=== PATIENT | female | born 1965 | race Caucasian/White ===

== ENCOUNTER 2022-08-28 15:52 | Outpatient (RCR) | payer BC, SELFPAY | END 2022-09-19 09:03 | disposition home or self-care (01) | PROVIDERS: PCP Family Medicine; Visit Provider Orthopaedic Surgery | DX: M17.11 Unilateral primary osteoarthritis, right knee (principal); Z96.651 Presence of right artificial knee joint; Z51.89 Encounter for other specified aftercare | CPT/HCPCS: 97110; 97162 ==

== ENCOUNTER 2022-09-14 10:17 | Day surgery (SDC) | payer BC, SELFPAY ==
[2022-09-14] VITALS (20 sets, daily range): BP systolic 104–159; BP diastolic 70–95; PULSE 59–99; RESP 12–18; TEMP 35.7–36.8; O2SAT 95–100; BMI 39.2
[2022-09-14] MEDS: ACETAMINOPHEN 500 MG TABLET 1000 MG PO ×2 (10:30→18:28)
[2022-09-14] MEDS: CELECOXIB 200 MG CAPSULE PO (10:30)
[2022-09-14] MEDS: OXYCODONE (CR) 10 MG TAB.ER.12H PO (10:30)
[2022-09-14] MEDS: SODIUM CHLORIDE 0.9 % (FLUSH) 10 ML SYRINGE IVF (10:45)
[2022-09-14] MEDS: LACTATED RINGERS 1000 ML 1,000 ML 100 ML IV ×2 (10:45→16:14)
--- NOTE | 2022-09-14 12:22 | SUR.PREOP ---
TIME?OUT:?1226 PT/RN/MDA?VERIFICATION?OF?SURGICAL?SITE Right Knee,?PROCEDURE Nerve block,?AND?CONSENT OBTAINED?PRIOR?TO?INVASIVE?PROCEDURE.
[2022-09-14] MEDS: fentaNYL 100 MCG/2 ML inj IVP (12:27)
[2022-09-14] MEDS: MIDAZOLAM HCL 1 MG/ML inj IVP (12:27)
--- NOTE | 2022-09-14 12:45 | P.NB_ITS ---
Nerve Block Nerve Block Time Seen by Provider: 12:29 Date Seen: 09/14/22 Type of block requested by surgeon for post-operative analgesia: adductor canal Side: right Time out performed: Yes Verification of patient name: Yes Verification of date of : Yes Site marking: site marked Name of person performing procedure: Naveen Continuous monitoring Was continuous monitoring of O2 sat, B/P, manager monitoring, recorded every 15 minutes?: Yes Procedure Checklist: sterile prep, needles and gloves Ultrasound guided. Images saved: Yes Medications given in 5ml increments after negative aspiration: Ropivicaine %: 0.5 mL: 20 Needle gauge: 20 Decadron (mg): 10 Precedex (mcg): 25 Patient tolerated procedure well: Yes Additional comments: Needle noted adjacent to nerve Block Charges Block Charge (with Pro Fee): Femoral Nerve Use of Ultrasound Machine for Block: Yes- US Guidance/pain block
--- NOTE | 2022-09-14 12:45 | W.ANESCHARGE ---
Anesthesia Charges Start Date/Time Anesthesia Start Date: 09/14/22 Anesthesia Start Time: 14:05 Stop Date/Time Anesthesia Stop Date: 09/14/22 Anesthesia Stop Time: 16:42
--- NOTE | 2022-09-14 12:45 | W.PM.NB ---
Nerve Block Nerve Block Time Seen by Provider: 12:29 Date Seen: 09/14/22 Type of block requested by surgeon for post-operative analgesia: geniculars Side: right Time out performed: Yes Verification of patient name: Yes Verification of date of : Yes Site marking: site marked Name of person performing procedure: Naveen Continuous monitoring Was continuous monitoring of O2 sat, B/P, sql server architect, recorded every 15 minutes?: Yes Procedure Checklist: sterile prep, needles and gloves Medications given in 5ml increments after negative aspiration: Ropivicaine %: 0.5 mL: 9 Needle gauge: 25 Patient tolerated procedure well: Yes Block Charges Block Charge (with Pro Fee): Genicular Nerve Block Use of Ultrasound Machine for Block: No
[2022-09-14] MEDS: CEFAZOLIN 2 GM INJ IVP (14:05)
[2022-09-14] MEDS: TRANEXAMIC ACID 100 MG/ML INJ 1000 MG IV (14:08)
--- NOTE | 2022-09-14 15:51 | CRLHL7_ITS ---
For Patients: As a result of the Cures Act, medical imaging exams and procedure reports are released immediately into your electronic medical record. You may view this report before your referring provider. If you have questions, please contact your health care provider. Indication: Postop TKA Technique: Two views right knee Findings/Impression: Hardware from a right total knee arthroplasty is in satisfactory position. Bone alignment is normal. No sign of acute fracture. Postop changes are within normal limits. Dictated by Ramos Sears MD @ 09/15/2022 8:01:40 AM (Electronically Signed)
--- NOTE | 2022-09-14 15:58 | P.ORPRC_ITS ---
Procedure Note Date of procedure: 09/14/22 Procedure: PREOPERATIVE DIAGNOSIS: Right knee osteoarthritis POSTOPERATIVE DIAGNOSIS: Right knee osteoarthritis NAME OF OPERATION: Right total knee arthroplasty SURGEON: Teodoro Green MD HEARING OFFICER: Susy Hernandez PA-C ANESTHESIA: Spinal ESTIMATED BLOOD LOSS: 0 mL COMPLICATIONS: None SPECIMENS: Bone cuts were sent for gross and microscopic pathology DRAINS: None PREOPERATIVE ANTIBIOTICS: Ancef 3 grams IMPLANTS: 1. J&J Attune # 5 posterior stabilized femur 2. # 5 fixed-bearing tibia with a 14 mm x 50 mm stem 3. # 5 posterior stabilized, 5 mm fixed-bearing polyethylene 4. 38 patella INDICATIONS: The patient is a 56-year-old with a longstanding history of severe, unrelenting right knee pain secondary to end-stage (grade IV) right knee osteoarthritis. Despite appropriate nonoperative management, including activity modification, anti-inflammatories, [id number] pain medication, bracing, physical therapy, and injections they continue to have pain and disability. Operative intervention was offered. The risks, benefits and expected outcomes were discussed in detail. These included but were not limited to: Infection, bleeding, injury to blood vessel or nerve, venous thromboembolism. All questions were answered to their sati sfaction. Use of an publisher assistant was necessary throughout the case for patient positioning and safety, soft tissue retraction, and closure. PROCEDURE: Spinal anesthesia was administered. The patient was placed supine on the operating table. The publisher assistant made sure the patient was positioned appropriately. The lower extremity was prepped and draped in the usual sterile fashion. The limb was exsanguinated with the Luis bandage. The pneumatic tourniquet was inflated to 300 mmHg. A standard anterior incision was made with the knee in flexion. Subcutaneous dissection was sharply taken through fascial layer #1. Full-thickness medial and lateral flaps were elevated. The publisher assistant retracted the soft tissues and protected them throughout the case. A standard medial parapatellar approach was made. The patella was everted. The infrapatellar fat pad was preserved. The menisci and cruciate ligaments were sharply d?brided. Marginal osteophytes were d?brided with the rongeur. Immediately upon entering the joint we noted the color of the subchondral bone was darkened brown. This was most pronounced on the distal femur, less so on the tibia and the patella. Therefore, bone cuts w ere sent for gross and microscopic pathology. The drill was used to penetrate the femoral canal. The canal was aspirated and irrigated with pulse lavage. The intramedullary femoral guide was placed for a 5-degree valgus cut, removing 10 mm off the distal femur. The saw was used to make the cut. Whitesides line and the trans epicondylar axis were marked. The femoral sizing guide was pinned onto the distal femur. Three degrees of external rotation nicely parallels the transepicondylar axis. Pins were placed for posterior referencing. The four-in-one cutting guide was pinned onto the distal femur. The anterior, posterior, and chamfer cuts were made. The publisher assistant protected the collateral ligaments. The box cutting guide was pinned. The box cuts were made. The boxed trial was placed and was an excellent fit. Drill holes for the lugs were made. Attention was then turned to the proximal tibia. The extramedullary tibial guide was placed for a neutral varus/valgus cut with 5 degrees of posterior slope, removing 2 mm based off the medial tibial surface. The publisher assistant protected the collateral ligaments and the neurovascular bundle. The saw was used to make the cut. Given the patient's weight of 124 kg with a BMI of 39.2 kg/meter sq we elected to use a stem on the tibial side. The tray was placed in appropriate rotation, parallel to our tibial cutting pins. It was pinned by the publisher assistant and the drills were used. The Trial components were placed. The knee was nicely balanced in both flexion and extension. The trial components were removed. The tray was placed in an appropriate amount of rotation. The punch was used, the tray was removed. The punch was used again. We placed a bone plug in the femoral canal. Attention was then turned to the patella. Rincon patellar thickness was 20 mm. The lobster claw resection guide was used with the 7.5 mm сергей. The saw was used to make the cut. Drill holes were made by the publisher assistant. The trial was placed and was an excellent fit. Cancellous surfaces were irrigated with pulse lavage and thoroughly dried by the publisher assistant. We cemented the tibial component, then the femoral component. We impacted the 5 mm polyethylene onto the tibial tray. The knee was brought into full extension. We then cemented the patellar component. Excessive cement was removed. The cement was allowed to harden. The knee was taken through a range of motion and was found to be nicely balanced in both flexion and extension. The patella tracks centrally. The publisher assistant did a three minute dilute Betadine solution soak. The publisher assistant irrigated the wound with 3 liters of normal saline via pulse lavage. The publisher assistant reapproximated the extensor mechanism with #1 Vicryl in an interrupted [id number] fashion. The publisher assistant then ran the extensor mechanism with a #1 PDO Stratafix. The publisher assistant closed the subcutaneous tissues with a 3-0 Stratafix and the skin with a running 3-0 Stratafix in a subcuticular fashion. Glue was used to seal the skin. The publisher assistant placed a dry dressing, ROBBIE stocking, and Polar Care. Sponge and needle counts were correct x2. The patient tolerated the procedure well. There were no apparent complications. They were carefully transferred to the hospital bed and taken to the postanesthesia care unit in satisfactory condition. PLAN: The patient will be mobilized with physical therapy. Aspirin will be used for DVT prophylaxis. They will be discharged to home once medically appropriate. She will follow up in the office in a week for a wound check and to check her final pathology.
--- NOTE | 2022-09-14 16:45 | W.ANESCHARGE ---
Anesthesia Charges Start Date/Time Anesthesia Start Date: 09/14/22 Anesthesia Start Time: 14:05 Stop Date/Time Anesthesia Stop Date: 09/14/22 Anesthesia Stop Time: 16:42
--- NOTE | 2022-09-14 17:26 | P.IMCN_ITS ---
Date of Consult Patient: Kerry Patient Consult date: 09/14/22 Primary Care Provider: Moon Lyon MD Consult Narrative Reason for consult: Medical management of comorbidities Narrative: Latrice Thomas is a 56 year old female who presented to the hospital today for an elective R TKA with Dr. Green. There were no surgical or anesthetic complications noted during procedure. Patient's H&P reviewed, PCP is Dr. Lyon in [place]. Past medical history significant for: Choroidal melanoma of left eye, anxiety, insomnia, GERD, hyperlipidemia, hypothyroidism History of blood clots: No Postoperative plan: Home with Patient did has been taught have no concerns for hospitalist team. She would like to take a few of her own home medications, as they are non formulary. Review of Systems Status of ROS: Reports: 10 or more systems reviewed and unremarkable except as noted in History and below [facility] Medical History (Updated 09/14/22 @ 18:31 by Janay James MD) Anxiety ?F41.9 - Anxiety disorder, unspecified (ICD-10) Choroid melanoma of left eye ?C69.32 - Malignant neoplasm of left choroid (ICD-10) Depression ?F32.A - Depression, unspecified (ICD-10) Elevated cholesterol ?E78.00 - Pure hypercholesterolemia, unspecified (ICD-10) GERD (gastroesophageal reflux disease) ?K21.9 - Gastro-esophageal reflux disease without esophagitis (ICD-10) Hypothyroid ?E03.9 - Hypothyroidism, unspecified (ICD-10) Insomnia ?G47.00 - Insomnia, unspecified (ICD-10) Surgical History (Updated 09/14/22 @ 18:31 by Janay James MD) History of cholecystectomy (~2007) ?Z90.49 - Acquired absence of other specified parts of digestive tract (ICD- 10) History of eye removal (10/03/21) ?Z90.01 - Acquired absence of eye (ICD-10) History of hysterectomy (~2011) ?Z90.710 - Acquired absence of both cervix and uterus (ICD-10) History of knee replacement ?Z96.659 - Presence of unspecified artificial knee joint (ICD-10) Hx of appendectomy (1998) ?Z90.49 - Acquired absence of other specified parts of digestive tract (ICD- 10) Family History (Updated 09/05/22 @ 14:33 by Mylene Stewart RN) Mother Myocardial infarction Father FH: kidney cancer Brother Hyperlipidemia FHx: total knee replacement Social History (Updated 09/14/22 @ 18:31 by Janay James MD) Narrative: Lives with Everett in [place]. Not currently working outside the home. Nonsmoker, no concerning alcohol use. Smoking Status: Never smoker Do you use any of these nicotine containing products: None Second hand tobacco smoke exposure: No How often do you have a drink containing alcohol: never AUDIT-C Alcohol total score: 0 Non-prescribed substance use: denies use Caffeine: No Are you now , , , , never or living with a partner: Social isolation score (0-1 are the most socially isolated patients): 1 Meds Home Medications and Allergies Home Medications Medication Instructions Recorded Confirmed Type B-complex with vitamin C 1 cap PO QDAY 02/13/22 09/14/22 History baclofen 10,000 mcg/20 mL (500 10 mcg continuous intrathecal 02/13/22 08/09/22 History mcg/mL) intrathecal syringe infusion bupropion HCl 100 mg tablet,12 hr mg PO 02/13/22 08/09/22 History sustained-release cyclobenzaprine 10 mg tablet 10 mg PO .Bedtime as needed PRN 02/13/22 09/14/22 History esomeprazole magnesium 20 mg 20 mg PO DAILY 02/13/22 09/14/22 History capsule,delayed release multivitamin 1 tab PO QDAY 02/13/22 09/14/22 History zinc gluconate 100 mg tablet 100 mg PO 02/13/22 08/09/22 History zolpidem 6.25 mg tablet,extended mg PO 02/13/22 08/09/22 History release,multiphase citalopram 20 mg tablet 20 mg PO QDAY 03/22/22 09/14/22 History levothyroxine 200 mcg tablet 200 mcg PO QDAY 03/22/22 09/14/22 History (Synthroid) propranolol 60 mg capsule,24 60 mg PO QDAY 05/15/22 09/14/22 History hr,extended release cholecalciferol (vitamin D3) 10 10 mcg PO QDAY 07/28/22 09/14/22 History mcg (400 unit) capsule esomeprazole magnesium 40 mg 40 mg PO QDAY 07/28/22 09/14/22 History capsule,delayed release (Nexium) ezetimibe 10 mg tablet (Zetia) 10 mg PO QDAY 07/28/22 09/14/22 History simvastatin 40 mg tablet 40 mg PO QDAY 07/28/22 09/14/22 History zolpidem 6.25 mg tablet,extended 6.25 mg PO QHS 07/28/22 09/14/22 History release,multiphase (Ambien CR) Allergies Allergy/AdvReac Type Severity Reaction Status Date / Time propoxyphene Allergy Verified 09/14/22 10:26 [From Darvocet-N] Sulfa (Sulfonamide Allergy Verified 09/14/22 10:26 Antibiotics) Exam Narrative: Exam Narrative: GEN: Alert HEENT: No scleral icterus, oropharynx clear CV: RRR, No concerning murmurs, rubs, or gallops R: LCTA bilaterally without concerning wheezing, rales, or rhonchi Skin: No concerning skin lesions or rashes on exposed skin Neuro: Nonfocal Psych: Appropriate Const: Vital Signs, click to edit/add: Vital Signs - 24 hr 09/14/22 10:35 09/14/22 12:25 09/14/22 12:30 Temperature 97.8 F Pulse Rate 78 74 69 Respiratory Rate 18 18 18 Blood Pressure 152/89 H 159/91 H 151/88 H Pulse Oximetry 99 100 100 Oxygen Delivery Me thod Room Air Nasal Cannula Nasal Cannula Oxygen Flow Rate 2 2 09/14/22 16:40 09/14/22 16:45 09/14/22 16:50 Temperature 96.2 F L Pulse Rate 62 65 67 Respiratory Rate 12 12 12 Blood Pressure 110/70 107/73 104/75 Pulse Oximetry 97 97 97 Oxygen Delivery Me thod Room Air Room Air Room Air Oxygen Flow Rate 09/14/22 16:55 09/14/22 17:00 09/14/22 17:05 Temperature Pulse Rate 69 65 72 Respiratory Rate 12 12 12 Blood Pressure 113/79 119/76 129/79 Pulse Oximetry 97 98 98 Oxygen Delivery Me thod Room Air Room Air Room Air Oxygen Flow Rate 09/14/22 17:10 Temperature 97 F L Pulse Rate 65 Respiratory Rate 12 Blood Pressure 132/80 Pulse Oximetry 100 Oxygen Delivery Me thod Room Air Oxygen Flow Rate Assessment and Plan Assessment and plan (1) History of knee replacement: Problem comment: - Randy, Dr. Green, 09/14/22 Status: Acute Plan - pain management and prophylaxis per orthopedic surgery team - continue home medications for comorbidities as noted above - anticipate routine postoperative course
[2022-09-14] MEDS: HYDROmorphone 0.5 mg/0.5 ml inj IVP ×2 (17:51→20:54)
[2022-09-14] MEDS: OXYCODONE 5 MG TABLET PO ×2 (19:24→22:33)
[2022-09-14] MEDS: CEFAZOLIN 3 GM in 0.9 % SODIUM CHLORIDE 100 ml 100 ML IVPB (19:30)
[2022-09-14] MEDS: SENNOSIDES 1 TAB TABLET 2 TAB PO (20:35)
[2022-09-14] MEDS: SIMVASTATIN 40 MG TABLET PO (20:35)
[2022-09-14] MEDS: ASPIRIN 81 MG TABLET EC PO (20:36)
[2022-09-14] MEDS: buPROPion HCL 100 MG TAB.SR.12H PO (20:38)
[2022-09-14] MEDS: ONDANSETRON 2 MG/ML inj 4 MG IVP (20:53)
[2022-09-14] MEDS: OMEPRAZOLE 20 MG CAPSULE DR 40 MG PO (21:26)
[2022-09-14] MEDS: ZOLPIDEM 5 MG TABLET PO (22:17)
[2022-09-14] MEDS: CITALOPRAM HYDROBROMIDE 20 MG TABLET PO (22:17)
--- NOTE | 2022-09-14 23:09 | PC.NURSE ---
Shift [id number]- Patient states comfort at rest, but has increased pain and accompanying nausea with attempts to ambulate. Bedside commode used, PRN pain medication, anti-nausea administered with relief. She is eating, drinking and voiding without issue. Dressing is clean, dry and intact. Patient has brought in 3 home medications.
[2022-09-14] MEDS: LACTATED RINGERS 1000 ML 1,000 ML 75 ML IV (23:50)
[2022-09-15] MEDS: ACETAMINOPHEN 500 MG TABLET 1000 MG PO ×2 (00:55→06:12)
[2022-09-15 03:30] VITALS: BP 131/72; RESP 20; TEMP 36; O2SAT 98
[2022-09-15] MEDS: CEFAZOLIN 3 GM in 0.9 % SODIUM CHLORIDE 100 ml 100 ML IVPB (03:36)
[2022-09-15] MEDS: OXYCODONE 5 MG TABLET PO ×2 (03:36→08:56)
[2022-09-15] MEDS: LEVOTHYROXINE 100 MCG TABLET 200 MCG PO (06:13)
[2022-09-15 06:44] LABS: Hematocrit 38.8 % (33.0-51.0); Hemoglobin* 13.1 gm/dL (12.0-16.0); Immature Granulocytes Pct Auto 0.3 %; Lymphocytes Percent Auto 6.8 % (20-44); Mean Corpuscular HGB Conc 34 gm/dL (32-36); Mean Corpuscular Hemoglobin 31 pg (26-34); Mean Corpuscular Volume 90 fL (80-100); Monocytes Percent Auto 6.7 % (0.0-11.0); Neutrophils Percent Auto 86.2 % (42.0-72.0); Platelet Count* 291 K/uL (140-440); White Blood Count* 13.38 K/uL (4.50-11.00)
[2022-09-15 06:50] LABS: Slide Review Reflex No
[2022-09-15 07:00] VITALS: O2SAT 98
[2022-09-15 07:11] LABS: Potassium* 3.8 mmol/L (3.6-5.1); Sodium* 135 mmol/L (135-149)
[2022-09-15 07:14] LABS: Blood Urea Nitrogen* 14 mg/dL (7-30); Creatinine* 0.6 mg/dL (0.5-1.5); Est. Creatinine Clearance* 110.52; Estimated Glomerular Filt Rate 104 ml/min
[2022-09-15 07:17] LABS: INR 0.94 (0.91-1.10); Prothrombin Time 13.2 Seconds
[2022-09-15 07:30] VITALS: BP 125/68; PULSE 69; RESP 18; TEMP 36.4; O2SAT 98
--- NOTE | 2022-09-15 07:34 | PC.NURSE ---
END OF SHIFT NOTE: PT PLEASANT AND COOPERATIVE. A&O x4. DENIES CP, SOB, N/V. AMBULATES SLOWLY WITH WALKER, GB, A1. VSS ON RA; AFEBRILE. ADEQUATELY ORAL INTAKE; LEFT HAND IV SL. BED ALARM ON AND CALL LIGHT WITHIN PT?S REACH.?
--- NOTE | 2022-09-15 08:04 | PM.ORPN ---
Subjective Subjective Time Seen by Provider: 07:30 Date Seen: 09/15/22 Principal diagnosis: S/p day 1 right TKA Interval history: Latrice is doing well this morning and is resting comfortably in bed. Patient complains of diffuse, mild right knee pain worse with ambulation. Pain is well managed with current scheduled and PRN oral pain medications and ice. Admits to intermittent nausea. Denies: fever, chills, body aches, chest pain, SOB. Patient reports she had a loose bowel movement last night. Patient feels ready to be discharged to home later this afternoon. No acute events over night. Ortho Exam Narrative Exam Narrative: Incision/Dressing: Dressing appears clean and dry. No drainage present. Mepilex intact. Right knee appears moderately swollen but supple with no obvious erythema, fluctuance or excessive warmth. No ecchymosis or erythematous streaking. Warmth around the wound is appropriate. Ice is being utilized as needed. CMS: Intact distally with 2+ Dorsalis pedis and Posterior Tibial pulses. 5/5 motor strength dorsal and plantar flexion. Confirmed sensation distally. Intact straight leg raise. Calf: Bilateral calves are supple, with no swelling, pain, tenderness, erythema, discoloration or coolness to the touch. Constitutional: Patient is alert and oriented x3. Patient is in no acute distress and converses without labored breathing. Patient is able to make decisions and demonstrates good insight. Patient is pleasant and cooperative. Affect is full range and appropriate for the circumstances. Const Vital Signs, click to edit/add: Vital Signs - 24 hr 09/14/22 10:35 09/14/22 12:25 09/14/22 12:30 Temperature 97.8 F Pulse Rate 78 74 69 Pulse Rate [Pulse Oximeter] Respiratory Rate 18 18 18 Blood Pressure 152/89 H 159/91 H 151/88 H Blood Pressure [Right Arm] Pulse Oximetry 99 100 100 Oxygen Delivery Method Room Air Nasal Cannula Nasal Cannula Oxygen Flow Rate 2 2 09/14/22 16:40 09/14/22 16:45 09/14/22 16:50 Temperature 96.2 F L Pulse Rate 62 65 67 Pulse Rate [Pulse Oximeter] Respiratory Rate 12 12 12 Blood Pressure 110/70 107/73 104/75 Blood Pressure [Right Arm] Pulse Oximetry 97 97 97 Oxygen Delivery Method Room Air Room Air Room Air Oxygen Flow Rate 09/14/22 16:55 09/14/22 17:00 09/14/22 17:05 Temperature Pulse Rate 69 65 72 Pulse Rate [Pulse Oximeter] Respiratory Rate 12 12 12 Blood Pressure 113/79 119/76 129/79 Blood Pressure [Right Arm] Pulse Oximetry 97 98 98 Oxygen Delivery Method Room Air Room Air Room Air Oxygen Flow Rate 09/14/22 17:10 09/14/22 17:30 09/14/22 17:15 Temperature 97 F L 97.3 F L 97.3 F L Pulse Rate 65 59 L Pulse Rate [Pulse Oximeter] 59 L Respiratory Rate 12 18 18 Blood Pressure 132/80 Blood Pressure [Right Arm] 143/95 H 143/95 H Pulse Oximetry 100 95 Oxygen Delivery Method Room Air Room Air Room Air Oxygen Flow Rate 09/14/22 17:30 09/14/22 17:45 09/14/22 18:00 Temperature Pulse Rate Pulse Rate [Pulse Oximeter] 63 63 60 Respiratory Rate 18 18 18 Blood Pressure Blood Pressure [Right Arm] 129/86 126/80 135/85 Pulse Oximetry 99 100 100 Oxygen Delivery Method Room Air Room Air Room Air Oxygen Flow Rate 09/14/22 18:30 09/14/22 19:00 09/14/22 20:00 Temperature 97.2 F L Pulse Rate Pulse Rate [Pulse Oximeter] 68 69 69 Respiratory Rate 18 18 18 Blood Pressure Blood Pressure [Right Arm] 139/88 142/80 H 130/73 Pulse Oximetry 97 100 100 Oxygen Delivery Method Room Air Room Air Room Air Oxygen Flow Rate 09/14/22 21:00 09/14/22 22:00 09/14/22 23:00 Temperature 97.7 F Pulse Rate Pulse Rate [Pulse Oximeter] 72 64 Respiratory Rate 18 18 Blood Pressure Blood Pressure [Right Arm] 139/89 116/70 Pulse Oximetry 100 99 99 Oxygen Delivery Method Room Air Room Air Oxygen Flow Rate 09/14/22 23:00 09/14/22 23:00 09/15/22 03:30 Temperature 98.2 F 96.8 F L Pulse Rate Pulse Rate [Pulse Oximeter] 67 99 Respiratory Rate 18 18 20 Blood Pressure Blood Pressure [Right Arm] 137/86 131/72 Pulse Oximetry 99 98 Oxygen Delivery Method Room Air Room Air Oxygen Flow Rate Assessment and Plan Assessment and plan (1) History of knee replacement: Problem details: - R, Dr. Green, 09/14/22 Status: Acute Assessment and Plan: - Complete 23 hour perioperative antibiotics. - PT/OT consults for education and assistance. - Social consult for discharge planning. - Weight bear as tolerated. - DVT prophylaxis includes: aspirin 81 mg BID x 1 month. Also bilateral knee high Paco stockings (x 1 month), frequent ambulation and ankle pumps when sedentary. - Anticipate patient will be discharged to home this afternoon if the patient remains medically stable, pain is controlled and is safe with ambulation. - Return to clinic in 1 week for a wound check. Mepilex dressing will be removed at this appointment. Remove sooner if dressing becomes saturated. - Return to clinic in [address] Green. - Prescribed analgesics as needed. Patient is content with current narcotic medications. Minimize narcotic pain medication use; wean off and discontinue as soon as possible. - Phone Orthopedics with any questions or concerns.
[2022-09-15] MEDS: OMEPRAZOLE 20 MG CAPSULE DR 40 MG PO (08:55)
[2022-09-15] MEDS: SENNOSIDES 1 TAB TABLET 2 TAB PO (08:56)
[2022-09-15] MEDS: ASPIRIN 81 MG TABLET EC PO (08:56)
--- NOTE | 2022-09-15 09:26 | PC.SOCIAL ---
Met with pt and pt's in pt's room to discuss discharge plans. Pt states her home is prepped for her recovery and she has her to assist her during her recovery period. Pt has a walker and a cane at home. No identified needs for social work. Informed pt that if she has any questions she may reach out to social work.
[2022-09-15 10:00] VITALS: BP 132/80; PULSE 59; RESP 18; TEMP 36.4
[2022-09-15] MEDS: EZETIMIBE 10 MG TABLET PO (10:12)
[2022-09-15] MEDS: buPROPion HCL SR 150 MG TAB 300 MG PO (10:22)
--- NOTE | 2022-09-15 12:55 | PC.NURSE ---
D/C: A&O. A1 w/ walker and gait belt. Tolerating regular diet, denies N/V. Reported pain 4-5/10. PRN oxycodone given before therapy. d/c instructions were given verbally and written copy was sent home with patient. All questions answered. IV d/c with tip intact. Went home with at 1145.
== END 2022-09-15 11:45 | disposition home or self-care (01) ==
LOC: OR 10:17 → MEDSURG 10:22
PROVIDERS: PCP Family Medicine; Visit Provider Orthopaedic Surgery
PROC: (CPT 27447; principal; 2022-09-14 12:00)
DX: M17.11 Unilateral primary osteoarthritis, right knee (principal); F41.9 Anxiety disorder, unspecified; K21.9 Gastro-esophageal reflux disease without esophagitis; E78.5 Hyperlipidemia, unspecified; E03.9 Hypothyroidism, unspecified; G47.00 Insomnia, unspecified
CPT/HCPCS: 27447; 01402; 36415; 64447; 64454; 73560; 76942; 82565; 84132; 84295; 84520; 85025; 85610; 88305; 88311; 97110; 97116; 97161; 97165; 97530; 97535; A9270; C1776; J0690; J1100; J1170; J2250; J2405; J2704; J2795; J3010; J7120; S0106

== ENCOUNTER 2023-06-15 07:27 | Outpatient (CLI) | payer BC, SELFPAY | END 2023-06-15 07:28 | disposition home or self-care (01) | LOC: INJ CL 07:27 | PROVIDERS: PCP Family Medicine; Visit Provider Family Medicine | DX: M51.36 Other intervertebral disc degeneration, lumbar region (principal); M54.16 Radiculopathy, lumbar region | CPT/HCPCS: 62323; J0702; Q9966 ==

== ENCOUNTER 2023-08-07 13:54 | Outpatient (CLI) | payer BC, SELFPAY ==
--- OUTSIDE RECORDS SUMMARY | 2023-08-07 13:57 | XMS_ITS | Clinical Summary ---
Author Name Unknown Organization [facility] Address [place], [place] [address] Care Team Providers Care President & Founder Name Role Phone Moon Lyon MD Primary Care Provider Allergies Active Allergy Reactions Criticality Noted Date Comments Propoxyphene-Acetaminophen Nausea Only 05/04/20 06 Pitavastatin Myalgia 07/06/2023 Rosuvastatin Myalgia 07/06/2023 Sulfa (Sulfonamide Antibiotics) Nausea And Vomiting 05/04/2006 Medications Medication Sig Dispensed Refills Start Date End Date Status MULTIVITAMIN ORAL None Entered 0 Activ e vitamin B complex (VITAMINS B COMPLEX) tablet Take 1 tablet by mouth once daily. 0 06/03/20 12 Active Calcium-Magnesium tablet Take 1 tablet by mouth. 0 06/03/20 12 Active omega-3 fatty acids-vitamin E (FISH OIL) 1,000 mg cap Take by mouth. 0 06/03/20 12 Active soy-blk cohosh-green tea-yerba 56-40-130 mg tab Take by mouth once daily. 0 03/12/20 17 Active scopolamine 1mg over 3 days (Transderm-Scop) patchIndications:Motion sickness, subsequent encounter Apply 1 Patch on dry, clean, hairless skin every 72 hours. 4 Patch 07/13/19 22 Active zinc 50 mg tablet Take 1 Tablet (50 mg) by mouth once daily. 0 07/17/19 23 Active cholecalciferol, Vitamin D3, (Vitamin D-3) 5,000 unit tab tabletIndications:Vitam in D deficiency Take 1 Tablet (5,000 units) by mouth once daily. 90 Tablet 3 07/17/19 23 Active buPROPion (WELLBUTRIN SR) 150 mg Sustained-Release tabletIndications:Depre ssion, unspecified depression type 2 tabs in the morning, 1 tab in the evening 270 Tablet 3 08/16/19 23 Active NITROGLYCERIN 0.2 % IN PETROLATUM OINTMENT, [facility] MIXTURE,Indications:Darshan fissure Insert 0.25 g rectally 3 times daily if needed (anal fissure). Apply tid and prn after BM's. Wait for patient to call. 60 g 2 11/11/19 23 Active Nyamyc powderIndications:Mery kristina dermatitis APPLY TO AFFECTED AREA(S) TOPICALLY TWICE DAILY 180 g 3 12/01/19 23 Active baclofen (LIORESAL) 10 mg tabletIndications:Muscl e spasm of back Take 1 Tablet (10 mg) by mouth 2 times daily if needed (muscle pain). 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 180 Capsule 3 12/07/19 23 Active propranolol ER (INDERAL LA) 60 mg Cs24 Sustained-Release capsule Take 1 Capsule by mouth once daily. 0 03/05/20 23 Active levothyroxine (SYNTHROID) 150 mcg tabletIndications:Hypot hyroidism (acquired) Take 1 Tablet (150 mcg) by mouth once daily. 90 Tablet 3 06/29/19 24 Active atorvastatin (LIPITOR) 40 mg tabletIndications:Pure hypercholesterolemia Take 1 Tablet (40 mg) by mouth once daily. 90 Tablet 3 07/06/19 24 Active ezetimibe (ZETIA) 10 mg tabletIndications:CAD in northway artery Take 1 Tablet (10 mg) by mouth once daily. 90 Tablet 3 07/06/19 24 Active citalopram (CELEXA) 20 mg tabletIndications:Anxie ty TAKE 1 TABLET BY MOUTH ONCE DAILY 90 Tablet 3 07/11/19 24 Active zolpidem CR (AMBIEN CR) 6.25 mg Extended-Release tabletIndications:Insom garcia, idiopathic Take 1 Tablet (6.25 mg) by mouth at bedtime if needed for Sleep. 90 Tablet 0 07/23/19 24 Active citalopram (CELEXA) 20 mg tabletIndications:Anxie ty Take 1 Tablet (20 mg) by mouth once daily. 90 Tablet 05/01/20 22 024 Discontinued propranolol ER (INDERAL LA) 60 mg Cs24 Sustained-Release capsuleIndications:At risk for cancer Take 1 Capsule (60 mg) by mouth once daily. 90 Capsule 3 12/16/19 23 024 Discontinued(Du plicate therapy (E-cancel not sent)) zolpidem CR (AMBIEN CR) 6.25 mg Extended-Release tabletIndications:Insom garcia, idiopathic TAKE 1 TABLET(6.25 MG) BY MOUTH AT BEDTIME NEEDED FOR SLEEP 30 Tablet 0 06/21/20 23 024 Discontinued(Re order (E-cancel not sent)) zolpidem CR (AMBIEN CR) 6.25 mg Extended-Release tabletIndications:Insom garcia, idiopathic Take 1 Tablet (6.25 mg) by mouth at bedtime if needed for Sleep. 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 Acquired hypothyroidism 04/01/2018 Insomnia, idiopathic 12/11/2016 Pain in joint, shoulder region 05/06/2007 Mixed hyperlipidemia 05/04/2006 Esophageal reflux 05/04/2006 Major depressive disorder, recurrent episode, un specified 05/04/2006 Gastroesophageal reflux disease without esophagi tis Polyp of colon Resolved Problems Problem Noted Date Diagnosed Date Resolved Date Pain medication agreement 06/16/2013 Overview: Percocet, 6 pills per day, knee pain Plantar fasciitis 05/07/2008 09/01/2022 Encounters Date Type Department Care Team Description 08/03/2023 11:00 AM [facility] Office Visit [facility] [address] [place] [address] Bereket Noyola MD Musculoskeletal Problem (Follow up back pain, DARNELL on 06/15/23) 08/03/2023 Travel 07/20/2023 11:15 AM [facility] Office Visit [facility] [address] [place] [address] Moon Lyon MD Physical 07/20/2023 10:40 AM [facility] - 07/20/2023 11:59 PM [facility] Hospital Encounter [facility] [address] [place] [address] Visit for screening mammogram 07/20/2023 Travel 07/08/[address] [facility] [address] [place] [address] Moon Lyon MD Refill Request (Citalopram) 07/06/2023 11:00 AM [facility] Telemedicine [facility] [address] [place] [address] Ramos Rossi MD Telehealth; Follow Up ( f/u from [facility] Feb 2022, med check) 07/06/2023 Travel 06/29/2023 Travel 06/20/[address] [facility] [address] [place] [address] Moon Lyon MD Refill Request (Zolpidem Cr) 06/15/2023 8:00 AM [facility] Office Visit [facility] at [address] [place] [address] Bereket Noyola MD Procedure (L4-5 ILESI) 06/12/2023 8:45 AM [facility] - 06/12/2023 11:59 PM [facility] Hospital Encounter [facility] [address] [place] [address] Emely Bauman MD Choroidal malignant melanoma, left (HC) 06/12/2023 Travel 06/12/2023 Lab Requisition [facility] [address] [place] [address] Emely Bauman MD 06/11/2023 3:14 PM [facility] - 06/11/2023 11:59 PM [facility] Hospital Encounter [address] [address] Shannan, MD Akosua Tierney Tia, PT 06/11/2023 Travel 06/04/2023 3:12 PM [facility] - 06/04/2023 11:59 PM [facility] Hospital Encounter [address] [address] Shannan, MD Akosua Tierney Tia, PT 06/04/2023 Travel 05/31/2023 11:20 AM [facility] Office Visit [facility] [address] [place] [address] Bereket Noyola MD Consult (Lumbar pain x 2 years ) 05/31/2023 Travel 05/29/2023 3:14 PM [facility] - 05/29/2023 11:59 PM [facility] Hospital Encounter [address] [address] Shannan, MD Neema Tierney Kaylin J, [employer] 05/29/2023 Travel 05/21/2023 3:14 PM [facility] - 05/21/2023 11:59 PM [facility] Hospital Encounter [address] [address] Shannan, MD Neema Tierney Kaylin J, [employer] 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[employer]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 05/21/2023 Travel 05/14/2023 3:14 PM [facility] - 05/14/2023 11:59 PM [facility] Hospital Encounter [address] [address] Jerry Campbell MD Hagy, Tia, PT 05/14/2023 Travel 05/07/2023 3:14 PM [facility] - 05/07/2023 11:59 PM [facility] Hospital Encounter [address] [address] Jerry Campbell MD Hagy, Tia, PT 05/07/2023 Travel from Last 3 Months Immunizations Name Administration Dates Next Due AMB Influenza, IIV3 (Age >=3 years)(Flu Clinic Only) 05/09/2012,05/09/2012 COVID-19 vaccine ([employer] NTBrandShield 30mcg/0.3mL) 12YO+ JUAN-SUCROSE PF, MDV 2021 COVID-19 vaccine ([employer] NTBrandShield 30mcg/0.3mL) PF, MDV 05/09/2021,10/06/2020,09/15/2020 COVID-19 vaccine Comirnaty ([employer]Shield 30mcg/0.3mL) 12YO+ 9840-4823 Formula PF, SDV, PFS 03/16/2023 Influenza, IIV3 (Age 6-35 mos) 6,04/22/2015,03/31/2011,2008 Influenza, IIV3 (Age >=3 years) 03/09/20 21,03/17/2016,04/02/2014,2012,05/09/2012,03/31/2011,03/19/2010,1 ,05/07/2008,05/02/2006 Influenza, IIV4 03/10/2022,,03/24/2020,2018,04/01/2018,03/12/2017,04/23/2015 Influenza, IIV4 (=>6mos) MDV 03/15/2019 Influenza,CCIIV4 PRESERV FREE 03/16/2023 Measles 11/01/1976 Pneumococcal Conj 20-valent (Prevnar 20) 03/10/2022 Td (Age >=7 Years) 03/26/2003 Tdap 07/17/2022,06/03/2012,03/26/2003 Zoster (Shingrix-RZV, recombinant) 07/05/2018, Family History Medical History Relation Name Comments Hyperlipidemia Brother Osteoarthritis Brother Cancer Father Renal cell carc inoma Heart Disease Mother Hyperlipidemia Cancer-breast Paternal Grandmother Relation Name Status Comments Brother Alive Father Mother Paternal Grandmother Social History Tobacco Use Types Packs/Day Years Used Date Smoking Tobacco: Never Smokeless Tobacco: Never Tobacco Cessation:Counseling Given: Yes Alcohol Use Standard Drinks/Week Comments No 0 (1 standard drink = 0.6 oz pur e alcohol) PHQ-2 Answer Date Recorded PHQ-2 TOTAL SCORE 0 07/20/2023 Social Connections Answer Date Recorded Frequency of Communication with Friends and Fami ly 0 03/12/2023 Financial Resource Strain Answer Date R ecorded Difficulty of Paying Living Expenses 3 03/12/2023 Difficulty of Paying Living Expenses Not on file 03/12/2023 Food Insecurity Answer Date Recorded Worried About Running Out of Food in the Last Ye ar 1 03/12/2023 Transportation Needs Answer Date Record ed Lack of Transportation (Medical) 1 03/12/2023 Housing Stability Answer Date Recorded Unable to Pay for Housing in the Last Year 1 03/12/2023 Sex and Gender Information Value Date Recorded Sex Assigned at Not on file Gender Identity Not on file Sexual Orientation Not on file Obstetrics History Para Term AB IAB SAB Ectopic Multiple Livin g Live Births 0 0 0 0 0 0 0 0 0 0 Last Filed Vital Signs Vital Sign Reading Time Taken Comments Blood Pressure 129/83 08/03/2023 11:04 AM [facility] Pulse 69 08/03/2023 11:04 AM [facility] Temperature 36.7 ??C (98.1 ??F) 08/03/2023 11:[address] Respiratory Rate 14 07/06/2023 11:16 AM [facility] Oxygen Saturation 98% 08/03/2023 11:04 AM [facility] Inhaled Oxygen Concentration - - Weight 132 kg (291 lb 1.6 oz) 07/20/2023 11:39 A M [facility] Height 177.8 cm (5' 10) 07/20/2023 11:39 AM [facility] Body Mass Index 41.77 07/20/2023 11:39 AM [facility] Plan of Treatment Upcoming Encounters Date Type Department Care Team (Late st Contact Info) Description 08/07/2023 2:40 PM [facility] Office Visit [facility] [address] [place] [phone] Bereket Noyola MD [address] [place] [address] Arrived 08/24/2023 8:20 AM [facility] Orders [facility] [address] [facility] [place] [address] Lab, Janneth 08/29/2023 1:00 PM [facility] Preop Visit [facility] [address] [facility] [place] [address] Moon Lyon MD [address] [facility] [place] [address] 09/04/2023 8:45 AM CDT Appointment [facility] [address] [facility] [place] [address] 09/04/2023 9:00 AM CDT Appointment [facility] [address] [facility] [place] [address] 09/04/2023 9:30 AM CDT Appointment [facility] [address] [facility] [place] [address] Health Maintenance Due Date Last Done Comments COVID-19 vaccine series (2022- season) 2023 03/16/2023, 05/26/2022, 2021, Additional history exists BMI (ht and wt on same day) for age 18+ 07/20/2024 07/20/2023, 09/01/2022, 07/17/2022, Additional history exists Depression screening for age 12+ 07/20/2024 07/20/2023, 07/17/2022, 07/13/2021, Additional history exists Mammogram for age 45-75 07/20/2024 07/20/19 24, 07/17/2022, 07/13/2021, Additional history exists Colonoscopy through age 75 01/10/202701/10, 01/02/2012 [facility] Lipids for age 45-75 06/29/2028 06/29/2023, 07/14/2022, 07/08/2021, Additional history exists Tetanus booster 07/17/2032 07/17/2022, 05/25, 03/26/2003, Additional history exists Zoster (shingles) series for age 50+ Completed 07/05/2018, 04/01/2018 Hepatitis C screening for ag e 18-79 Completed 06/28/2019 Pneumococcal series for age 6-64 Completed 03/10/20 Tdap Completed 07/17/2022, 05/25, 03/26/2003 HIV for age 15-65 Completed 09/05/2022 Influenza for age 50-64 Completed 03/16/20, 03/10/2022, 03/09/2021, Additional history exists Procedures Procedure Name Priority Date/Time Associated Diagnosis Comments XR MAMMO DARIELA BILAT SCREEN Routine 07/20/2023 10:54 AM [facility] Visit for screening mammogram LIPID PANEL W REFLEX MEASURED LDL Routine 06/29/2023 8:43 AM [facility] Mixed hyperlipidemia BASIC METABOLIC PANEL Routine 06/29/2023 8:43 AM [facility] Mixed hyperlipidemia TSH Routine 06/29/2023 8:43 AM [facility] Hypothyroidism (acquired) AMB EPIDURAL STEROID INJECTION Routine 06/15/2023 9:27 AM [facility] Lumbar radiculopathy DDD (degenerative disc disease), lumbar Lumbar facet arthropathy MR ABDOMEN WWO Routine 06/12/2023 10:43 AM [facility] Choroidal malignant melanoma, left (HC) CT CHEST WO Routine 06/12/2023 9:22 AM [facility] Choroidal malignant melanoma, left (HC) CBC WITH AUTO DIFFERENTIAL Routine 06/12/2023 9:00 AM [facility] Malignant neoplasm of left choroid (HC) COMP METABOLIC PANEL Routine 06/12/2023 9:00 AM [facility] Malignant neoplasm of left choroid (HC) CBC WITH AUTO DIFFERENTIAL Routine 06/12/2023 9:00 AM [facility] Malignant neoplasm of left choroid (HC) from Last 3 Months Results * XR MAMMO DARIELA BILAT SCREEN (07/20/2023 10:54 AM [facility]) Anatomical Region Laterality Modality BREASTS, Breast Left, Breast Right Bilateral Mammography Impressions 07/20/2023 11:30 AM [facility] ??There is no radiographic evidence for malignancy. ??Recommend annual mammograms. MAMMOGRAM ASSESSMENT: ??ACR 1 Negative PATIENTS: You will also receive a letter with your examination results in an easy to read format. ??If you have questions about your results, please contact your referring provider. Narrative 07/20/2023 11:30 AM [facility] For Patients: As a result of the Century Cures Act, medical imaging exams and procedure reports are released immediately into your electronic medical record. You may view this report before your referring provider. If you have questions, please contact your health care provider. XR MAMMO DARIELA BILAT SCREEN [[id number]] CLINICAL HISTORY: ??This is an asymptomatic 57 y.o. patient. INDICATION FOR EXAM: Mammogram Screening. TECHNIQUE: CC & MLO views were obtained. ??This study was evaluated with the assistance of Computer-Aided Detection. Breast Tomosynthesis was used in interpretation. COMPARISON FILM: Yes 07/16/22 ? FINDINGS: ??The breasts are almost entirely fatty. There are no dominant masses, suspicious micro calcifications or areas of architectural distortion. Moon Lyon MD MAMMO * (ABNORMAL) LIPID PANEL W REFLEX MEASURED LDL (06/29/2023 8:43 AM [facility]) CHOLESTEROL,TOTAL 181 100 - 199 mg/dL 06/29/2023 9:34 AM [facility] Comment: Cholesterol, Total Reference Ranges Desirable <200 mg/dL Borderline 200-239 mg/dL High >=240 mg/dL TRIGLYCERIDES 177(H) <150 mg/dL 06/29/2023 9:34 AM [facility] HDL CHOLESTEROL 63 >40 mg/dL 9:34 AM [facility] NON-HDL CHOLESTEROL 118 <145 mg/dl 06/29/2023 9:34 AM [facility] CHOL/HDL RATIO 2.87 <4.50 06/29/2023 9:34 AM [facility] LDL CHOLESTEROL 83 <=130 mg/dL 06/29/2023 9:34 AM [facility] VLDL CHOLESTEROL 35(H) <=30 mg/dL 06/29/2023 9:34 AM [facility] PROVIDER ORDERED STATUS RANDOM 06/29/2023 9:34 AM [facility] Blood BLOOD SPECIMEN / Unknown Venipuncture / Unknown 06/29/2023 8:43 AM [facility] 06/29/2023 8:44 AM [facility] Moon Lyon MD CHEMISTRY Performing Organization Address [facility] de Phone Number [facility] [address] [place] [address] * (ABNORMAL) TSH (06/29/2023 8:43 AM [facility]) TSH 0.08(L) 0.27 - 4.20 uIU/mL 06/29/2023 9:34 AM [facility] Blood BLOOD SPECIMEN / Unknown Venipuncture / Unknown 06/29/2023 8:43 AM [facility] 06/29/2023 8:44 AM [facility] Narrative [facility] - 06/29/2023 9:34 AM [facility] In Adults, TSH values between 5.00 and 10.00 uIU/ml do not necessarily indicate the presence of Hypothyroidism. Correlation with clinical findings such as presence of goiter and/or Thyroperoxidase (TPO) Antibody may be helpful. For more information please refer to TAM 2004; 291: 228-238. Moon Lyon MD CHEMISTRY Performing Organization Address [facility] Co de Phone Number [facility] [address] [place] [address] * (ABNORMAL) BASIC METABOLIC PANEL (06/29/2023 8:43 AM [facility]) SODIUM 139 136 - 145 mmol/L 06/29/2023 9:34 AM [facility] POTASSIUM 4.1 3.5 - 5.1 mmol/L 06/29/2023 9:34 AM [facility] CHLORIDE 105 98 - 107 mmol/L 06/29/2023 9:34 AM [facility] CO2,TOTAL 23 22 - 29 mmol/L 06/29/2023 9:34 AM [facility] ANION GAP 11 5 - 18 06/29/2023 9:34 AM [facility] GLUCOSE 107(H) 70 - 99 mg/dL 06/29/2023 9:34 AM [facility] CALCIUM 9.4 8.6 - 10.0 mg/dL 06/29/2023 9:34 AM [facility] BUN 19 6 - 20 mg/dL 06/29/2023 9:34 AM [facility] CREATININE 0.80 0.50 - 0.90 mg/dL 06/29/2023 9:34 AM [facility] BUN/CREAT RATIO 24(H) 10 - 20 9:34 AM [facility] eGFR 85(L) >90 mL/min/1.7 3m2 06/29/2023 9:34 AM [facility] Comment:As of 2021, eG FR is calculated by the CKD-EPI creatinine equation without race adjustment. ??eGFR can be influenced by muscle mass, exercise, and diet. ??The reported eGFR is an estimation only and is only applicable if the renal function is stable. Blood BLOOD SPECIMEN / Unknown Venipuncture / Unknown 06/29/2023 8:43 AM [facility] 06/29/2023 8:44 AM [facility] Moon Lyon MD CHEMISTRY [facility] [address] [place] [address] * MR ABDOMEN WWO (06/12/2023 10:43 AM [facility]) Anatomical Region Laterality Modality Abdomen, LIVER, PANCREAS, KIDNEYS, AORTA Magnetic Resonance 06/16/2023 2:04 PM [facility] Impressions 06/16/2023 2:04 PM [facility] 1. Stable small single enhancing lesion subcapsular segment II. No change continued surveillance could be obtained. 2. No new suspicious liver lesions. 3. Gallbladder surgery. Dictated by Bang Coto MD @ 06/16/2023 2:04:20 PM (Electronically Signed) Narrative 06/16/2023 2:04 PM [facility] For Patients: ??As a result of the Cures Act, medical imaging exams and procedure reports are released immediately into your electronic medical record. ??You may view this report before your referring provider. ??If you have questions, please contact your health care provider. INDICATION: Melanoma. Liver lesion. TECHNIQUE: Abdominal MRI. T1, T2 weighted and diffusion weighting. Postcontrast fat suppressed T1 weighted imaging. Diffusion-weighted imaging. Contrast: 10 cc intravenous Gadavist. COMPARISON: MRI abdomen 03/13/2023. FINDINGS: Liver: Stable with non cirrhotic morphology. Enhancing lesion in segment II subcapsular and anterior slightly greater than 1 cm with no significant overall change. No new liver lesions. Miscellaneous abdomen: The pancreas spleen adrenal glands and kidneys show no change. No ascites. No suspicious lymph node enlargement. The skeletal structures are unremarkable with no change. Biliary tree: Normal caliber. The gallbladder is absent. Procedure Note Bang Coto MD - 06/16/2023 For Patients: As a result of the Cures Act, medical imagingexams and procedure reports are released immediately into your electronicmedical record. You may view this report before your referring provider.If you have questions, please contact your health care provider. INDICATION: Melanoma. Liver lesion. TECHNIQUE: Abdominal MRI. T1, T2 weighted and diffusion weighting. Postcontrast fat suppressed T1 weighted imaging. Diffusion-weighted imaging. Contrast: 10 cc intravenous Gadavist. COMPARISON: MRI abdomen 03/13/2023. FINDINGS: Liver: Stable with non cirrhotic morphology. Enhancing lesion in segment IIsubcapsular and anterior slightly greater than 1 cm with no significantoverall change. No new liver lesions. Miscellaneous abdomen: The pancreas spleen adrenal glands and kidneys show no change. No ascites. No suspicious lymph node enlargement. The skeletal structures are unremarkable with no change. Biliary tree: Normal caliber. The gallbladder is absent. IMPRESSION: 1. Stable small single enhancing lesion subcapsular segment II. No change continued surveillance could be obtained. 2. No new suspicious liver lesions. 3. Gallbladder surgery. Dictated by Bang Coto MD @ 06/16/2023 2:04:20 PM (Electronically Signed) Bethanieio Burton Levi MD MR * CT CHEST WO (06/12/2023 9:22 AM [facility]) Anatomical Region Laterality Modality CHEST, THORAX, HEART Computed To mography 06/12/2023 9:34 AM [facility] Impressions 06/12/2023 9:34 AM [facility] 1. No change from multiple previous studies. Lung ramsey are clear. No lymphadenopathy or other evidence of metastatic disease. 2. Chronic atherosclerotic disease. 3. Cholecystectomy. Please note that all CT scans at this facility use dose modulation, iterative reconstruction, and/or weight-based dosing when appropriate to reduce radiation dose to as low as reasonably achievable. Dictated by Vinod Peralta MD @ 06/12/2023 9:34:49 AM (Electronically Signed) Narrative 06/12/2023 9:34 AM [facility] For Patients: ??As a result of the Cures Act, medical imaging exams and procedure reports are released immediately into your electronic medical record. ??You may view this report before your referring provider. ??If you have questions, please contact your health care provider. INDICATION: Choroidal malignant melanoma TECHNIQUE: CT chest without contrast. COMPARISON: 03/13/2023, 09/05/2022 and 06/07/2022. FINDINGS: Cardiovascular structures: Heart size is normal. Thoracic aorta and main pulmonary artery are normal in caliber. Redemonstrated atherosclerotic calcification of the coronary arteries. Mediastinum and lis: No sign of mass or adenopathy. Lungs: Clear. No pulmonary nodules, mass or consolidation. The airways are clear. Pleura and pericardium: No effusions. Chest wall and axilla: No mass or adenopathy. Bones: Degenerative spine. Small focal of sclerosis in the body of T10 unchanged. No lytic or new osteoblastic lesions. Upper abdomen: Cholecystectomy. Otherwise unremarkable. Procedure Note Ernst Peralta MD - 06/12/2023 For Patients: As a result of the Cures Act, medical imagingexams and procedure reports are released immediately into your electronicmedical record. You may view this report before your referring provider.If you have questions, please contact your health care provider. INDICATION: Choroidal malignant melanoma TECHNIQUE: CT chest without contrast. COMPARISON: 03/13/2023, 09/05/2022 and 06/07/2022. FINDINGS: Cardiovascular structures: Heart size is normal. Thoracic aorta and mainpulmonary artery are normal in caliber. Redemonstrated atheroscleroticcalcification of the coronary arteries. Mediastinum and lis: No sign of mass or adenopathy. Lungs: Clear. No pulmonary nodules, mass or consolidation. The airways areclear. Pleura and pericardium: No effusions. Chest wall and axilla: No mass or adenopathy. Bones: Degenerative spine. Small focal of sclerosis in the body of [id number]. No lytic or new osteoblastic lesions. Upper abdomen: Cholecystectomy. Otherwise unremarkable. IMPRESSION: 1. No change from multiple previous studies. Lung ramsey are clear. Nolymphadenopathy or other evidence of metastatic disease. 2. Chronic atherosclerotic disease. 3. Cholecystectomy. Please note that all CT scans at this facility use dose modulation,iterative reconstruction, and/or weight-based dosing when appropriate toreduce radiation dose to as low as reasonably achievable. Dictated by Vinod Peralta MD @ 06/12/2023 9:34:49 AM (Electronically Signed) Emely Levi MD CT * CBC WITH AUTO DIFFERENTIAL (06/12/2023 9:00 AM [facility]) WHITE BLOOD COUNT 6.4 4.5 - 11.0 thou/cu mm 06/12/2023 9:45 AM [facility] RED BLOOD COUNT 4.92 4.00 - 5.20 mil/cu mm 06/12/2023 9:45 AM [facility] HEMOGLOBIN 14.9 12.0 - 16.0 g/dL 06/12/2023 9:45 AM [facility] HEMATOCRIT 45.4 33.0 - 51.0 % 06/12/2023 9:45 AM [facility] MCV 92 80 - 100 fL 06/12/2023 9:45 AM [facility] MCH 30.3 26.0 - 34.0 pg 06/12/2023 9:45 AM [facility] MCHC 32.8 32.0 - 36.0 g/dL 06/12/2023 9:45 AM [facility] RDW 13.9 11.5 - 15.5 % 06/12/2023 9:45 AM [facility] PLATELET COUNT 341 140 - 440 thou/cu mm 06/12/2023 9:45 AM [facility] MPV 9.0 6.5 - 11.0 fL 06/12/2023 9:45 AM [facility] % NEUT 54.0 % 06/12/2023 9:45 AM [facility] % LYMPH 34.8 % 06/12/2023 9:45 AM [facility] % MONO 10.1 % 06/12/2023 9:45 AM [facility] % EOS 0.8 % 06/12/2023 9:45 AM [facility] % BASO 0.3 % 06/12/2023 9:45 AM [facility] ABSOLUTE NEUTROPHILS 3.5 1.7 - 7.0 thou/cu mm 06/12/2023 9:45 AM [facility] ABSOLUTE LYMPHOCYTES 2.2 0.9 - 2.9 thou/cu mm 06/12/2023 9:45 AM [facility] ABSOLUTE MONOCYTES 0.7 <0.9 thou/cu mm 06/12/2023 9:45 AM [facility] ABSOLUTE EOSINOPHILS 0.1 <0.5 thou/cu mm 06/12/2023 9:45 AM [facility] ABSOLUTE BASOPHILS 0.0 <0.3 thou/cu mm 06/12/2023 9:45 AM [facility] Blood BLOOD SPECIMEN / Unknown Venipuncture / Unknown 06/12/2023 9:00 AM [facility] 06/12/2023 9:39 AM [facility] Emely Levi MD HEMATOLOGY [facility] [address] [place] [address] * (ABNORMAL) COMP METABOLIC PANEL (06/12/2023 9:00 AM [facility]) SODIUM 141 136 - 145 mmol/L 06/12/2023 10:09 AM [facility] POTASSIUM 4.3 3.5 - 5.1 mmol/L 06/12/2023 10:09 AM [facility] CHLORIDE 105 98 - 107 mmol/L 06/12/2023 10:09 AM [facility] CO2,TOTAL 27 22 - 29 mmol/L 06/12/2023 10:09 AM [facility] ANION GAP 9 5 - 18 06/12/2023 10:09 AM [facility] GLUCOSE 105(H) 70 - 99 mg/dL 06/12/2023 10:09 AM [facility] CALCIUM 9.7 8.6 - 10.0 mg/dL 06/12/2023 10:09 AM [facility] BUN 18 6 - 20 mg/dL 06/12/2023 10:09 AM [facility] CREATININE 0.66 0.50 - 0.90 mg/dL 06/12/2023 10:09 AM [facility] BUN/CREAT RATIO 27(H) 10 - 20 10:09 AM [facility] eGFR >90 >90 mL/min/1.7 3m2 06/12/2023 10:09 AM [facility] Comment:As of 2021, eG FR is calculated by the CKD-EPI creatinine equation without race adjustment. ??eGFR can be influenced by muscle mass, exercise, and diet. ??The reported eGFR is an estimation only and is only applicable if the renal function is stable. ALBUMIN 4.2 4.0 - 4.9 g/dL 06/12/2023 10:09 AM [facility] PROTEIN,TOTAL 7.1 6.0 - 8.0 g/dL 06/12/2023 10:09 AM [facility] BILIRUBIN,TOTAL 0.4 0.0 - 1.2 mg/dL 06/12/2023 10:09 AM [facility] ALK PHOSPHATASE 86 35 - 104 IU/L 06/12/2023 10:09 AM [facility] ALT (SGPT) 22 10 - 35 IU/L 06/12/2023 10:09 AM [facility] AST (SGOT) 19 10 - 35 IU/L 06/12/2023 10:09 AM [facility] Blood BLOOD SPECIMEN / Unknown Venipuncture / Unknown 06/12/2023 9:00 AM [facility] 06/12/2023 9:39 AM [facility] Emely Levi MD CHEMISTRY [facility] [address] [place] [address] from Last 3 Months Advance Directives Latest Code Status on File Code Status Date Activated Date Inactivated Comments Full Code 01/10/2022 7:00 AM 01/10/2022 11:07 AM Question Answer Comments Code Status Discussion: Discussed Code Status History Code Status Date Activated Date Inactivated Comments Full Code 02/15/2017 6:53 AM 02/15/2017 11:38 AM Care Teams President & Founder Relationship Specialty Start Date End Date Moon Lyon MD [address] [facility] [place] [place] [address] PCP - General Family Practice 08/04/15
--- OUTSIDE RECORDS SUMMARY | 2023-08-07 13:58 | XMS_ITS | Encounter Summary ---
Author Name Unknown Organization [facility] Address [address] [place] [address] Care Team Providers Care Electricity Trading Analyst Name Role Phone Molina Warren MD Primary Care Provider [phone] Louise Mustafa RN Unavailable [phone] Radha Clark RN Unavailable [phone] Emely Bauman MD Unavailable [phone] Emely Bauman MD Unavailable [phone] Reason for Referral * Diagnostic Imaging MRI (Routine) - Pending Review Specialty Diagnoses / Procedures Referred By Carrie sherwood Referred To Contact Radiology. Procedures MR Outside Emely Castorena MD [address] [place] [address] Referral ID Status Reason Start Date Expiration Date V isits Requested Visits Authorized [id number] Pending Review 09/07/2022 09/07/2023 1 1 Reason for Visit * Diagnostic Imaging MRI (Routine) - Pending Review Specialty Diagnoses / Procedures Referred By Carrie sherwood Referred To Contact Radiology. Procedures MR Outside Emely Castorena MD [address] [place] [address] Referral ID Status Reason Start Date Expiration Date V isits Requested Visits Authorized [id number] Pending Review 09/07/2022 09/07/2023 1 1 Encounter Details Date Type Department Care Team (Latest Contact Info) Description 09/07/2022 11:29 AM CDT - 09/07/2022 11:59 PM CDT Hospital Encounter [facility] [address] [phone] Emely Bauman MD [address] [place] [address] Discharge Disposition: Home or Self Care Social History Tobacco Use Types Packs/Day Years Used Date Smoking Tobacco: Never Smokeless Tobacco: Never Sex and Gender Information Value Date Recorded Sex Assigned at Female 08/22/2021 11:54 AM SECURITIES TRADER Gender Identity Female 08/22/2021 11:54 AM SECURITIES TRADER Sexual Orientation Straight 08/22/2021 11 :54 AM SECURITIES TRADER documented as of this encounter Medications at Time of Discharge Medication Sig Dispensed Refills Start Date End Date baclofen (LIORESAL) 10 MG tablet Take 10 mg by mouth 0 07/22/2021 buPROPion (WELLBUTRIN SR) 150 MG 12 hr tablet 2 tabs in the morning, 1 tab in the evening 0 07/13/2021 citalopram (CELEXA) 20 MG tablet Take 1 tablet (20 mg) by mouth 0 02/17/2022 cyclobenzaprine (FLEXERIL) 10 MG tablet Take 10 mg by mouth 0 07/22/2021 esomeprazole (NEXIUM) [address] capsule Take 80 mg by mouth 0 07/13/2021 meloxicam (MOBIC) 15 MG tablet Take 1 tablet daily as needed for pain 0 07/19/2021 ztnwsbwq-cvnntqksh-ytgf methasone (MAXITROL) 3.5-49880-2.1 SUSP ophthalmic susp INSTILL 1 DROP INTO THE AFFECTED EYE FOUR TIMES DAILY 0 02/06/2022 nitroGLYcerin (NITRO-BID) 2 % OINT ointment Place 0.25 g rectally 0 07/13/2021 nystatin (MYCOSTATIN) 883931 UNIT/GM external powder Apply 1 strip topically 0 07/18/2021 scopolamine (TRANSDERM) 1 MG/3DAYS [address] 1 patch onto the skin 0 07/13/2021 zolpidem ER (AMBIEN CR) 6.25 MG CR tablet Take 6.25 mg by mouth 0 07/13/2021 propranolol ER (INDERAL LA) 60 MG 24 hr capsuleIndications:[place] essential hypertension Take 1 capsule (60 mg) by mouth daily 90 capsule 3 04/25/2022 03/05/2023 documented as of this encounter Plan of Treatment Not on file documented as of this encounter Procedures Procedure Name Priority Date/Time Associated Diagnosis Comments MR OUTSIDE READ Routine 09/07/2022 11:29 AM CDT documented in this encounter Results * MR Outside Read (09/07/2022 11:29 AM CDT) Anatomical Region Laterality Modality Outside Computed Radiogr aphy Impressions 09/13/2022 7:55 AM CDT IMPRESSION: 1. Stable subcapsular markedly T2 hyperintense liver segment 3 lesion most consistent with hemangioma. No evidence of liver metastasis. 2. Hepatic steatosis. I have personally reviewed the examination and initial interpretation and I agree with the findings. CARLYLE LEON MD Narrative 09/13/2022 7:55 AM CDT EXAMINATION: MR OUTSIDE READ, 09/07/2022 11:29 AM TECHNIQUE: Outside films dated 09/05/2022 were submitted for interpretation. Multisequence multiplanar MR images of the abdomen were performed without and with contrast. COMPARISON: MRI 06/07/2022, 03/14/2022 and multiple studies dating back to CT 07/11/2017 PREVIOUS REPORT: The original interpretation was available for review at the time of this dictation. HISTORY: 09/05/22 outside MRI-liver. Segment 3, anterior lesion, ?hemangioma vs met (h/o ocular melanoma) FINDINGS: ?? This report is designed to answer a focused clinical question and should be interpreted in conjunction with the original report. Liver: 1.3 cm markedly T2 hyperintense subcapsular anterior segment 3 lesion, with associated enhancement that matches with blood pool; present since at least CT 12/22/2021 though not well delineated on prior nondedicated CT studies. No intrahepatic biliary ductal dilation. ??Diffuse hepatic steatosis Biliary System: Gallbladder surgically absent. Pancreas: Preserved intrinsic T1 signal. No mass or pancreatic ductal dilation. Adrenal glands: No mass or nodules Spleen: Normal. Kidneys: No suspicious mass, obstructing calculus or hydronephrosis. Gastrointestinal tract :Normal caliber small bowel. Mesentery/peritoneum/retroperitoneum: No mass. No free fluid. Lymph nodes: No significant lymphadenopathy. Vasculature: Patent major abdominal vasculature. Osseous structures: No aggressive or acute osseous lesion. ?? Soft tissues: Within normal limits. Lower thorax: Normal. ?? Procedure Note Carlyle Leon MD - 09/13/2022 EXAMINATION: MR OUTSIDE READ, 09/07/2022 11:29 AM TECHNIQUE: Outside films dated 09/05/2022 were submitted for interpretation. Multisequence multiplanar MR images of the abdomen were performed without and with contrast. COMPARISON: MRI 06/07/2022, 03/14/2022 and multiple studies dating back to CT 07/11/2017 PREVIOUS REPORT: The original interpretation was available for review at the time of this dictation. HISTORY: 09/05/22 outside MRI-liver. Segment 3, anterior lesion, ?hemangioma vs met (h/o ocular melanoma) FINDINGS: This report is designed to answer a focused clinical question and should be interpreted in conjunction with the original report. Liver: 1.3 cm markedly T2 hyperintense subcapsular anterior segment 3 lesion, with associated enhancement that matches with blood pool; present since at least CT 12/22/2021 though not well delineated on prior nondedicated CT studies. No intrahepatic biliary ductal dilation. Diffuse hepatic steatosis Biliary System: Gallbladder surgically absent. Pancreas: Preserved intrinsic T1 signal. No mass or pancreatic ductal dilation. Adrenal glands: No mass or nodules Spleen: Normal. Kidneys: No suspicious mass, obstructing calculus or hydronephrosis. Gastrointestinal tract :Normal caliber small bowel. Mesentery/peritoneum/retroperitoneum: No mass. No free fluid. Lymph nodes: No significant lymphadenopathy. Vasculature: Patent major abdominal vasculature. Osseous structures: No aggressive or acute osseous lesion. Soft tissues: Within normal limits. Lower thorax: Normal. IMPRESSION: 1. Stable subcapsular markedly T2 hyperintense liver segment 3 lesion most consistent with hemangioma. No evidence of liver metastasis. 2. Hepatic steatosis. I have personally reviewed the examination and initial interpretation and I agree with the findings. CARLYLE LEON MD Emely Levi MD IMG MRI ORDERA BLES documented in this encounter Visit Diagnoses Not on filedocumented in this encounter Care Teams Electricity Trading Analyst Relationship Specialty Start Date End Date Molina Warren MD [facility] [address] [place] [address] PCP - General Hematology & Oncology 09/02/21 Louise Mustafa, LETITIA Specialty [place] Hematology & Oncology 09/02/21 Radha Clark RN Specialty [place] Hematology & Oncology 11/30/21 02/19/23 Emely Bauman MD [address] [place], [place] [id number] Hematology & Oncology 11/30/21 Emely Bauman MD [address] [place], [place] [address] Assigned Cancer Care Provider 12/31/21 documented as of this encounter
--- OUTSIDE RECORDS SUMMARY | 2023-08-07 13:58 | XMS_ITS | Encounter Summary ---
Author Name Unknown Organization [facility] Address [address] [place] [address] Care Team Providers Care House Calls Nurse Practitioner Name Role Phone Molina Warren MD Primary Care Provider [phone] Louise Mustafa RN Unavailable [phone] Emely Bauman MD Unavailable [phone] Emely Bauman MD Unavailable [phone] Chio Wilson RN Unavailable Unavailable Encounter Details Date Type Department Care Team (Late st Contact Info) Description 07/09/2023 MyC Medical Advice [facility] [address] [place] [phone] Emely Bauman MD [address] [place] [address] Social History Tobacco Use Types Packs/Day Years Used Date Smoking Tobacco: Never Passive Smoke Exposure: Never Smokeless Tobacco: Never Adolescent Education Answer Date Record ed Getting School Help Needed Not on file 03/17 Sex and Gender Information Value Date Recorded Sex Assigned at Female 08/22/2021 11:54 AM HOME HEALTH CLINICAL SUPERVISOR Gender Identity Female 08/22/2021 11:54 AM HOME HEALTH CLINICAL SUPERVISOR Sexual Orientation Straight 08/22/2021 11 :54 AM HOME HEALTH CLINICAL SUPERVISOR documented as of this encounter Plan of Treatment Not on file documented as of this encounter Visit Diagnoses Not on filedocumented in this encounter Care Teams House Calls Nurse Practitioner Relationship Specialty Start Date End Date Molina Warren [facility] [address] [place] [address] PCP - General Hematology & Oncology 09/02/21 Louise Mustafa, RN Specialty [employer] Officer Hematology & Oncology 09/02/21 Emely Bauman MD [address] [place] [address] Hematology & Oncology 11/30/21 Emely Bauman MD [address] [place] [address] Assigned Cancer Care Provider 12/31/21 Chio Wilson, LETITIA Specialty [employer] Officer Hematology & Oncology 03/06/23 documented as of this encounter
--- OUTSIDE RECORDS SUMMARY | 2023-08-07 13:58 | XMS_ITS | Encounter Summary ---
Author Name Unknown Organization [facility] Address [facility] [place] [address] Care Team Providers Care Manager Product Design Name Role Phone Molina Warren MD Primary Care Provider [phone] Louise Mustafa RN Unavailable [phone] Radha Clark RN Unavailable Emely Bauman MD Unavailable [phone] Emely Bauman MD Unavailable Chio Wilson RN Unavailable Unavailable Encounter Details Date Type Department Care Team (Late st Contact Info) Description 12/28/20[facility] [place] [facility] [address] [place] [phone] Marie Gale Social History Tobacco Use Types Packs/Day Years Used Date Smoking Tobacco: Never Smokeless Tobacco: Never Sex and Gender Information Value Date Recorded Sex Assigned at Female 08/22/2021 11:54 AM SAP PORTAL DEVELOPER Gender Identity Female 08/22/2021 11:54 AM SAP PORTAL DEVELOPER Sexual Orientation Straight 08/22/2021 11 :54 AM SAP PORTAL DEVELOPER documented as of this encounter Plan of Treatment Not on file documented as of this encounter Visit Diagnoses Not on filedocumented in this encounter Care Teams Manager Product Design Relationship Specialty Start Date End Date Molina Warren MD [facility] [address] [place] [address] PCP - General Hematology & Oncology 09/02/21 Louise Mustafa, RN Specialty Supervisor Telephone Answering Service Hematology & Oncology 09/02/21 Radha Clark RN Specialty Supervisor Telephone Answering Service Hematology & Oncology 11/30/21 02/19/23 Emely Bauman MD [address] [place], [place] [address] Hematology & Oncology 11/30/21 Emely Bauman MD [address] [place], [place] [id number] Assigned Cancer Care Provider 12/31/21 Chio Wilson, LETITIA Specialty Supervisor Telephone Answering Service Hematology & Oncology 03/06/23 documented as of this encounter
--- OUTSIDE RECORDS SUMMARY | 2023-08-07 13:58 | XMS_ITS | Encounter Summary ---
Author Name Unknown Organization [facility] Address [facility] [place] [address] Care Team Providers Care Platinumsmith Name Role Phone Molina Warren MD Primary Care Provider [phone] Louise Mustafa RN Unavailable [phone] Emely Bauman MD Unavailable [phone] Emely Bauman MD Unavailable [phone] Chio Wilson RN Unavailable Unavailable Encounter Details Date Type Department Care Team (Late st Contact Info) Description 03/30/2023 MyC Medical Advice [facility] [address] [place] [phone] Chio Wilson, RN Social History Tobacco Use Types Packs/Day Years Used Date Smoking Tobacco: Never Smokeless Tobacco: Never Adolescent Education Answer Date Record ed Getting School Help Needed Not on file 03/17 Sex and Gender Information Value Date Recorded Sex Assigned at Female 08/22/2021 11:54 AM DIRECTOR OF SPECIAL EDUCATION Gender Identity Female 08/22/2021 11:54 AM DIRECTOR OF SPECIAL EDUCATION Sexual Orientation Straight 08/22/2021 11 :54 AM DIRECTOR OF SPECIAL EDUCATION documented as of this encounter Plan of Treatment Not on file documented as of this encounter Visit Diagnoses Not on filedocumented in this encounter Care Teams Platinumsmith Relationship Specialty Start Date End Date Molina Warren MD [facility] [address] [place] [address] PCP - General Hematology & Oncology 09/02/21 Louise Mustafa, LETITIA Specialty Wildlife And Game Protector Hematology & Oncology 09/02/21 Emely Bauman MD [address] [place] [address] Hematology & Oncology 11/30/21 Emely Bauman MD [address] [place] [address] Assigned Cancer Care Provider 12/31/21 Chio Wilson, LETITIA Specialty Wildlife And Game Protector Hematology & Oncology 03/06/23 documented as of this encounter
--- OUTSIDE RECORDS SUMMARY | 2023-08-07 13:58 | XMS_ITS | Encounter Summary ---
Author Name Unknown Organization [facility] Address [address] [place] [address] Care Team Providers Care Thoracic Medicine Specialist Name Role Phone Molina Warren MD Primary Care Provider [phone] Louise Mustafa RN Unavailable [phone] Radha Clark RN Unavailable [phone] Emely Bauman MD Unavailable Emely Bauman MD Unavailable Encounter Details Date Type Department Care Team (Late st Contact Info) Description 02/06/2023 Care [address] [phone] Radha Clark, RN Social History Tobacco Use Types Packs/Day Years Used Date Smoking Tobacco: Never Smokeless Tobacco: Never Sex and Gender Information Value Date Recorded Sex Assigned at Female 08/22/2021 11:54 AM WARP CHANGER Gender Identity Female 08/22/2021 11:54 AM WARP CHANGER Sexual Orientation Straight 08/22/2021 11 :54 AM WARP CHANGER documented as of this encounter Progress Notes * Radha Clark RN - 02/06/2023 11:13 AM CDT Imaging and lab orders faxed to Kerry Evans at [phone]. Patient advised. She will set up appointments. Radha Clark MBA, MSN, RN, ONC RN Test Technician [facility] documented in this encounter Plan of Treatment Not on file documented as of this encounter Visit Diagnoses Not on filedocumented in this encounter Care Teams Thoracic Medicine Specialist Relationship Specialty Start Date End Date Molina Warren MD [facility] [address] [place] [address] PCP - General Hematology & Oncology 09/02/21 Louise Mustafa, LETITIA Specialty Test Technician Hematology & Oncology 09/02/21 Radha Clark RN Specialty Test Technician Hematology & Oncology 11/30/21 02/19/23 Emely Bauman MD [address] [place] [address] Hematology & Oncology 11/30/21 Emely Bauman MD [address] [place] [address] Assigned Cancer Care Provider 12/31/21 documented as of this encounter
--- OUTSIDE RECORDS SUMMARY | 2023-08-07 13:58 | XMS_ITS | Encounter Summary ---
Author Name Unknown Organization [facility] Address [address] [place] [address] Care Team Providers Care Chaplaincy Name Role Phone Molina Warren MD Primary Care Provider [phone] Louise Mustafa RN Unavailable [phone] Emely Bauman MD Unavailable [phone] Emely Bauman MD Unavailable [phone] Chio Wilson RN Unavailable Unavailable Reason for Referral * Diagnostic Imaging MRI (Routine) - Pending Review [facility]ty Diagnoses / [facility]. Diagnoses Choroidal malignant melanoma, left (H) Procedures MR Abdomen w/o & w Contrast Emely Bauman MD [address] [place] [address] Referral ID Status Reason Start Date Expiration Date V isits Requested Visits Authorized [id number] Pending Review 03/30/2023 03/29/2024 1 1 * Diagnostic Imaging CT Scan (Routine) - Pending Review Specialty Diagnoses / Procedures Referred By [facility]ac t Referred To Contact Radiology. Diagnoses Choroidal malignant melanoma, left (H) Procedures CT Chest w/o Contrast Emely Bauman MD [address] [place] [address] Referral ID Status Reason Start Date Expiration Date V isits Requested Visits Authorized [id number] Pending Review 03/30/2023 03/29/2024 1 1 Reason for Visit * Reason Comments RECHECK Follow up - lab and imaging review Encounter Details Date Type Department Care Team ([facility] st Contact Info) Description 03/30/2023 2:30 PM CDT Virtual Visit [facility] [address] [place] [phone] Emely Bauman MD [address] [place] [address] Choroidal malignant melanoma, left (H) (Primary Dx) Social History Tobacco Use Types Packs/Day Years Used Date Smoking Tobacco: Never Smokeless Tobacco: Never Adolescent Education Answer Date Record ed Getting School Help Needed Not on file 03/17 Sex and Gender Information Value Date Recorded Sex Assigned at Female 08/22/2021 11:54 AM RETREAD OPERATOR Gender Identity Female 08/22/2021 11:54 AM RETREAD OPERATOR Sexual Orientation Straight 08/22/2021 11 :54 AM RETREAD OPERATOR documented as of this encounter Progress Notes * Emely Bauman MD - 03/30/2023 2:30 PM CDT Virtual Visit Details Type of service: Video Visit Originating Location (pt. Location): Home Distant Location (provider location): On-site Platform used for Video Visit: [facility] ONCOLOGY PROGRESS NOTE Melanoma Clinic Mar 30, 2023 Chief Complaint: Ciliochoroidal melanoma Oncologic History: --June 2021, She developed blurred vision in the left eye. --07/21/2021 eye exam revealed a ciliochoroidal mass nasally with posterior vitreous detachment and subretinal fluid, on B-scan measuring 7.81 x 16.19 x 16.18mm. --08/02/2021, staging chest abdomen pelvis CT revealed no signs to suggest metastatic disease. Coronary artery calcification and atherosclerotic calcifications in the abdominal aorta as well as degenerative disc disease in the lumbosacral spine were noted. --08/18/2021 B-scan imaging showed a choroidal mass measuring 8.24 x 17.28 x 17.21 mm. --10/03/2021, she has left eye enucleation. Pathology shows a pT3b ciliochoroidal melanoma nrddqazxz66.5 x 15.5 x 16.25 mm, cell type: spindle cell melanoma (Grade 1), location: Anterior margin involving the pars plana of the ciliary body, posterior margin abutting the optic nerve head, microvascular pattern: Networks, mitotic count: 8 per 40 high power ramsey, no evidence of intrascleral invasion or extrascleral extension in the sections examined. GEP testing returned Class 2, PRAME-negative, BAP1 [id number]*, [id number]. History of Present Illness: Latrice Thomas is a 57 year old woman with a diagnosis of choroidal melanoma. She presents with her today to review her status. On 10/03/21 she underwent enucleation and she was found to have Class 2 tumor. She went to [place] at the end of October and she won 11k. She is doing well and denies any complaints. She is on 60 mg of propranolol as adjuvant therapy. She has had no issues with low blood pressureor heart rates. Tolerating medication well. She had MRI-abdomen, which showed no evidence of metastasis. Current Outpatient Medications Medication Sig Dispense Refill ??? baclofen (LIORESAL) 10 MG tablet Take 10 mg by mouth ??? buPROPion (WELLBUTRIN SR) 150 MG 12 hr tablet 2 tabs in the morning, 1 tab in the evening ??? citalopram (CELEXA) 20 MG tablet Take 1 tablet (20 mg) by mouth ??? cyclobenzaprine (FLEXERIL) 10 MG tablet Take 10 mg by mouth ??? esomeprazole (NEXIUM) [address] capsule Take 80 mg by mouth ??? meloxicam (MOBIC) 15 MG tablet Take 1 tablet daily as needed for pain ??? bsvzbpka-ipdqdpnhk-hngpwpwnhonre (MAXITROL) 3.5-64799-3.1 SUSP ophthalmic susp INSTILL 1 DROP INTO THE AFFECTED EYE FOUR TIMES DAILY ??? nitroGLYcerin (NITRO-BID) 2 % OINT ointment Place 0.25 g rectally ??? nystatin (MYCOSTATIN) 048704 UNIT/GM external powder Apply 1 strip topically ??? propranolol ER (INDERAL LA) 60 MG 24 hr capsule TAKE 1 CAPSULE BY MOUTH DAILY 90 capsule 3 ??? scopolamine (TRANSDERM) 1 MG/3DAYS [address] 1 patch onto the skin ??? zolpidem ER (AMBIEN CR) 6.25 MG CR tablet Take 6.25 mg by mouth Past medical, surgical, social, and family histories reviewed. Past Medical History: Diagnosis Date ??? Acquired hypothyroidism 04/01/2018 ??? Choroidal malignant melanoma, left (H) 12/22/2021 ??? Gastroesophageal reflux disease without esophagitis 05/04/2006 ??? Major depressive disorder, recurrent episode (H24) 05/04/2006 Past Surgical History: Procedure Laterality Date ??? ENUCLEATION Left 10/03/2021 No family history on file. Physical Examination: There were no vitals taken for this visit. Wt Readings from Last 5 Encounters: 12/28/22 120.2 kg (265 lb) 12/22/21 120 kg (264 lb 8 oz) GENERAL: Healthy, alert and no distress EYES: Eyes grossly normal to inspection. No discharge or erythema, or obvious scleral/conjunctival abnormalities. HENT: Normal cephalic/atraumatic. External ears, nose and mouth without ulcers or lesions. No nasaldrainage visible. NECK: No asymmetry, visible masses or scars RESP: No audible wheeze, cough, or visible cyanosis. No visible retractions or increased work of breathing. SKIN: Visible skin clear. No significant rash, abnormal pigmentation or lesions. NEURO: Cranial nerves grossly intact. Mentation and speech appropriate for age. PSYCH: Mentation appears normal, affect normal/bright, judgement and insight intact, normal speech and appearance well-groomed. Laboratory Data: 03/13/23 labs reviewed, which showed normal sodium, potassium. Glucose high at 121. Normal calcium, BUN and creatinine. BUN/Cr ratio 21. eGFR 84. Liver and pancreas testing normal. CBC is entirely normal. I personally reviewed the above labs. Imaging Studies: CT-chest, 03/13/2023 INDICATION: Choroidal malignant melanoma. TECHNIQUE: CT chest without contrast. COMPARISON: 09/05/2022 FINDINGS: Cardiovascular structures: Heart size is normal. Thoracic aorta and main pulmonary artery are normal in caliber. Atherosclerotic disease. Mediastinum and lis: No sign of mass or adenopathy. Lungs: Clear. No pulmonary nodules, mass??or consolidation. Pleura and pericardium: No effusions. Chest wall and axilla: No mass or adenopathy. Bones: No significant findings. Upper abdomen: Cholecystectomy. Otherwise unremarkable. IMPRESSION: Unremarkable unenhanced chest CT. No metastatic disease or significant interval change from the previous study. Abdominal MRI, 03/13/2023 INDICATION: Follow up melanoma. Surveillance. TECHNIQUE : Abdominal MRI. T1 in phase and out of phase. T2 weighted imaging and diffusion/ADC. Fat suppressed T1 weighted images obtained after injection of IV gadolinium. 10 cc of Gadavist. COMPARISON : MRI abdomen 12/19/2022 and 09/05/2022 FINDINGS: Liver: No new liver lesions. Stable subcapsular lesion in segment II 1.5 x 0.8 cm. No change. The post gadolinium images have moderate motion artifact. The background liver shows no other significant change. Biliary tree: Absent gallbladder normal caliber ducts. Pancreas spleen adrenal glands kidneys: Unremarkable there is a small accessory splenule. Lymph nodes: No pathologic enlargement. IMPRESSION : 1. There are no new suspicious liver lesions. No signs of a new metastatic lesion. 2. Stable appearance of the lesion with increased T2 signal in the subcapsular left lobe segment II. No significant change. Previously felt to represent a potential cavernous hemangioma. 3. Absent gallbladder with no biliary dilatation. I personally reviewed the above imaging in PACS. 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 She had restaging MRI-abdomen and CT- chest, which were negative for evidence of metastasis. We will continue MRI-abdomen and Ct-chest every 3 months going forward, at least for the first 2-3 years, then gradually lengthen to every 6 months. -continue propranolol 60 mg daily -RTC in 3 months with MRI-abdomen and CT-chest (Kerry Lucas) and labs Multiple questions answered. Emely Gooden M.D. Publicistcountry printer Hematology, Oncology and Transplantation Pager [phone] EAD OPERATOR * Molina Warren MD - 03/30/2023 2:30 PM CDT No need to send me updates on patients I am no longer following. B. documented in this encounter Nursing Notes * Joseph Montero - 03/30/2023 2:30 PM CDT Is the patient currently in the state of OR? YES Visit mode:VIDEO If the visit is dropped, the patient can be reconnected by: VIDEO VISIT: Text to cell phone: Telephone Information: Will anyone else be joining the visit? NO (If patient encounters technical issues they should call [phone]) How would you like to obtain your AVS? MyChart Are changes needed to the allergy or medication list? No Reason for visit: RECHECK (Follow up - lab and imaging review) Joseph Montero VVF documented in this encounter Plan of Treatment Scheduled Orders Name Type Priority Associated Diagnoses Orde r Schedule CT Chest w/o Contrast Imaging Routine Choroidal malignant melanoma, left (H) Expected: 06/30/2023 (Approximate), Expires: 03/30/2024 MR Abdomen w/o & w Contrast Imaging Routine Choroidal malignant melanoma, left (H) Expected: 06/30/2023 (Approximate), Expires: 03/29/2024 Comprehensive metabolic panel Lab Routine Choroidal malignant melanoma, left (H) Expected: 06/30/2023 (Approximate), Expires: 03/30/2024 CBC with Platelets & Differential Lab Panel Routine Choroidal malignant melanoma, left (H) Expected: 06/30/2023 (Approximate), Expires: 03/30/2024 documented as of this encounter Visit Diagnoses Diagnosis Choroidal malignant melanoma, left (H)- Primary documented in this encounter Care Teams Chaplaincy Relationship Specialty Start Date End Date Molina Warren MD [facility] [address] [place] [address] PCP - General Hematology & Oncology 09/02/21 Louise Mustafa, LETITIA Specialty Control Systems Technician Hematology & Oncology 09/02/21 Emely Bauman MD [address] [place], [place] [id number] Hematology & Oncology 11/30/21 Emely Bauman MD [address] [place] [address] Assigned Cancer Care Provider 12/31/21 Chio Wilson, LETITIA Specialty Control Systems Technician Hematology & Oncology 03/06/23 documented as of this encounter
--- OUTSIDE RECORDS SUMMARY | 2023-08-07 13:58 | XMS_ITS | Encounter Summary ---
Author Name Unknown Organization [facility] Address [address] [place] [address] Care Team Providers Care Interior Design Consultant Name Role Phone Molina Warren MD Primary Care Provider [phone] Louise Mustafa RN Unavailable [phone] Molina Warren MD Unavailable [phone] Radha Clark RN Unavailable Emely Bauman MD Unavailable [phone] Emely Bauman MD Unavailable Chio Wilson RN Unavailable Unavailable Encounter Details Date Type Department Care Team (Late st Contact Info) Description 12/09/2021 [facility] [address] [place] [phone] Emely Bauman MD [address] [place] [address] Social History Tobacco Use Types Packs/Day Years Used Date Smoking Tobacco: Never Smokeless Tobacco: Never Sex and Gender Information Value Date Recorded Sex Assigned at Female 08/22/2021 11:54 AM ELECTRON BEAM MACHINE WELDER SETTER Gender Identity Female 08/22/2021 11:54 AM ELECTRON BEAM MACHINE WELDER SETTER Sexual Orientation Straight 08/22/2021 11 :54 AM ELECTRON BEAM MACHINE WELDER SETTER documented as of this encounter Plan of Treatment Not on file documented as of this encounter Visit Diagnoses Not on filedocumented in this encounter Care Teams Interior Design Consultant Relationship Specialty Start Date End Date Molina Warren MD [facility] [address] [place] [address] PCP - General Hematology & Oncology 09/02/21 Louise Mustafa, LETITIA Specialty Double Cutter Hematology & Oncology 09/02/21 Molina Warren MD [facility] [address] [place] [address] Assigned Cancer Care Provider 09/18/21 12/30/21 Radha Clark RN Specialty Double Cutter Hematology & Oncology 11/30/21 02/19/23 Emely Bauman MD [address] [place], [place] [id number] Hematology & Oncology 11/30/21 Emely Bauman MD [address] [place], [place] [phone] Assigned Cancer Care Provider 12/31/21 Chio Wilson, LETITIA Specialty Double Cutter Hematology & Oncology 03/06/23 documented as of this encounter
--- OUTSIDE RECORDS SUMMARY | 2023-08-07 13:58 | XMS_ITS | Encounter Summary ---
Author Name Unknown Organization [facility] Address [address] [place] [address]. [place] [address] Care Team Providers Care Home Health Travel Pt Name Role Phone Molina Warren MD Primary Care Provider [phone] Louise Mustafa RN Unavailable [phone] Radha Clark RN Unavailable Emely Bauman MD Unavailable [phone] Emely Bauman MD Unavailable Chio Wilson RN Unavailable Unavailable Encounter Details Date Type Department Care Team (Late st Contact Info) Description 02/06/2023 [facility] Medical Advice [facility] [address] [place] [phone] Emely Bauman MD [address] [place] [address] Social History Tobacco Use Types Packs/Day Years Used Date Smoking Tobacco: Never Smokeless Tobacco: Never Sex and Gender Information Value Date Recorded Sex Assigned at Female 08/22/2021 11:54 AM POWER LINEMAN TECHNICIAN Gender Identity Female 08/22/2021 11:54 AM POWER LINEMAN TECHNICIAN Sexual Orientation Straight 08/22/2021 11 :54 AM POWER LINEMAN TECHNICIAN documented as of this encounter Plan of Treatment Not on file documented as of this encounter Visit Diagnoses Not on filedocumented in this encounter Care Teams Home Health Travel Pt Relationship Specialty Start Date End Date Molina Warren MD [facility] [address] [place], [place] [phone] PCP - General Hematology & Oncology 09/02/21 Louise Mustafa, RN Specialty Electronics Engineering Technologist Hematology & Oncology 09/02/21 Radha Clark RN Specialty Electronics Engineering Technologist Hematology & Oncology 11/30/21 02/19/23 Emely Bauman MD [address] [place], [place] [phone] Hematology & Oncology 11/30/21 Emely Bauman MD [address] [place] [address] Assigned Cancer Care Provider 12/31/21 Chio Wilson, LETITIA Specialty Electronics Engineering Technologist Hematology & Oncology 03/06/23 documented as of this encounter
--- OUTSIDE RECORDS SUMMARY | 2023-08-07 13:58 | XMS_ITS | Encounter Summary ---
Author Name Unknown Organization [facility] Address [address] [place] [address]. [place] [address] Care Team Providers Care Rim Fire Priming Operator Name Role Phone Molina Warren MD Primary Care Provider [phone] Louise Mustafa RN Unavailable [phone] Radha Clark RN Unavailable Emely Bauman MD Unavailable [phone] Emely Bauman MD Unavailable [phone] Chio Wilson RN Unavailable Unavailable Encounter Details Date Type Department Care Team (Late st Contact Info) Description 09/05/2022 [facility] Medical Advice [facility] [address] [place] [phone] Emely Bauman MD [address] [place] [address] Social History Tobacco Use Types Packs/Day Years Used Date Smoking Tobacco: Never Smokeless Tobacco: Never Sex and Gender Information Value Date Recorded Sex Assigned at Female 08/22/2021 11:54 AM GROCERY WORKER Gender Identity Female 08/22/2021 11:54 AM GROCERY WORKER Sexual Orientation Straight 08/22/2021 11 :54 AM GROCERY WORKER documented as of this encounter Plan of Treatment Not on file documented as of this encounter Visit Diagnoses Not on filedocumented in this encounter Care Teams Rim Fire Priming Operator Relationship Specialty Start Date End Date Molina Warren MD [facility] [address] [place], [place] [address] PCP - General Hematology & Oncology 09/02/21 Louise Mustafa, RN Specialty Regional Account Director Hematology & Oncology 09/02/21 Radha Clark RN Specialty Regional Account Director Hematology & Oncology 11/30/21 02/19/23 Emely Bauman MD [address] [place], [place] [address] Hematology & Oncology 11/30/21 Emely Bauman MD [address] [place] [address] Assigned Cancer Care Provider 12/31/21 Chio Wilson, LETITIA Specialty Regional Account Director Hematology & Oncology 03/06/23 documented as of this encounter
--- OUTSIDE RECORDS SUMMARY | 2023-08-07 13:58 | XMS_ITS | Clinical Summary ---
Author Name Unknown Organization [facility] Address [address] [place] [address] Care Team Providers Care Tag Machine Operator Name Role Phone Molina Warren MD Primary Care Provider Louise Mustafa RN Unavailable [phone] Emely Bauman MD Unavailable [phone] Emely Bauman MD Unavailable [phone] Chio Wilson RN Unavailable Unavailable Allergies Active Allergy Reactions Criticality Noted Date Comments Kdc:Red Dye+Acetaminophen+Propoxyphene Nausea 05/04/2006 Sulfa Antibiotics Nausea and Vomiting 6 Sulphasomidine Nausea and Vomiting 08/22/2021 Medications Medication Sig Dispensed Refills Start Date End Date Status baclofen (LIORESAL) 10 MG tablet Take 10 mg by mouth 0 07/22/2021 Active buPROPion (WELLBUTRIN SR) 150 MG 12 hr tablet 2 tabs in the morning, 1 tab in the evening 0 07/13/2021 Active cyclobenzaprine (FLEXERIL) 10 MG tablet Take 10 mg by mouth 0 07/22/2021 Active esomeprazole (NEXIUM) [address] capsule Take 80 mg by mouth 0 07/13/2021 Active meloxicam (MOBIC) 15 MG tablet Take 1 tablet daily as needed for pain 0 07/19/2021 Active nitroGLYcerin (NITRO-BID) 2 % OINT ointment Place 0.25 g rectally 0 07/13/2021 Active zolpidem ER (AMBIEN CR) 6.25 MG CR tablet Take 6.25 mg by mouth 0 07/13/2021 Active scopolamine (TRANSDERM) 1 MG/3DAYS [address] 1 patch onto the skin 0 07/13/2021 Active nystatin (MYCOSTATIN) 786000 UNIT/GM external powder Apply 1 strip topically 0 07/18/2021 Active citalopram (CELEXA) 20 MG tablet Take 1 tablet (20 mg) by mouth 0 02/17/2022 Active geofdcxi-lgagtdteo-e examethasone (MAXITROL) 3.5-73241-3.1 SUSP ophthalmic susp INSTILL 1 DROP INTO THE AFFECTED EYE FOUR TIMES DAILY 0 02/06/2022 Active propranolol ER (INDERAL LA) 60 MG 24 hr capsuleIndications:B enign essential hypertension TAKE 1 CAPSULE BY MOUTH DAILY 90 capsule 3 03/05/2023 Active Active Problems Problem Noted Date Diagnosed Date Class 2 severe obesity due t o excess calories with serious comorbidity in adult 12/28/2022 Polyp of colon 04/04/2022 Choroidal malignant melanoma, left 12/22/2021 Acquired hypothyroidism 04/01/2018 Insomnia, idiopathic 12/11/2016 Plantar fasciitis 05/07/2008 Pain in joint, shoulder region 05/06/2007 Major depressive disorder, recurrent episode (H2 4) 05/04/2006 Gastroesophageal reflux disease without esophagi tis 05/04/2006 Mixed hyperlipidemia 04/25/2006 Encounters Date Type Department Care Team Description 07/09/2023 [facility] Medical Advice [facility] [address] [phone] Emely Bauman MD 07/06/2023 2:00 PM LOCAL COMBINATION TRUCK DRIVER Virtual Visit [facility] [address] [phone] Emely Bauman MD Choroidal malignant melanoma, left (H) (Primary Dx) from Last 3 Months Immunizations Name Administration Dates Next Due COVID-19 MONOVALENT 12+ (Pfizer) 05/09/2021,09/23,09/15/2020 COVID-19 Monovalent 12+ (Pfizer 2021) 2021 Influenza (IIV3) PF 03/09/2021, 6,04/02/2014,2012,05/09/2012,05/09/2012,03/31/2011,0 03/19/2010,04/03/2009,05/07/2008, 006 Influenza Vaccine >6 months,quad, PF ,03/09/2021,03/24/2020,2018,04/01/2018,03/12/2017,04/23/2015 Influenza Vaccine, 6+MO IM (QUADRIVALENT W/PRESERVATIVES) 03/15/2019 Influenza, seasonal, injectable, PF 02/24,04/22/2015,03/31/2011,2008 Measles 11/01/1976 Pneumococcal 20 valent Conju gate (Prevnar 20) 03/10/2022 TDAP (Adacel,Boostrix) 06/03/2012,03/26/2003 Td (Adult), Adsorbed 03/26/2003 Zoster recombinant adjuvante d (SHINGRIX) 07/05/2018,04/01/2018 Social History Tobacco Use Types Packs/Day Years Used Date Smoking Tobacco: Never Passive Smoke Exposure: Never Smokeless Tobacco: Never Adolescent Education Answer Date Record ed Getting School Help Needed Not on file 03/17 Sex and Gender Information Value Date Recorded Sex Assigned at Female 08/22/2021 11:54 AM LOCAL COMBINATION TRUCK DRIVER Gender Identity Female 08/22/2021 11:54 AM LOCAL COMBINATION TRUCK DRIVER Sexual Orientation Straight 08/22/2021 11 :54 AM LOCAL COMBINATION TRUCK DRIVER Last Filed Vital Signs Vital Sign Reading Time Taken Comments Blood Pressure 159/97 12/22/2021 1:33 PM CDT Pulse 81 12/22/2021 1:33 PM CDT Temperature 36.7 ??C (98 ??F) 12/22/2021 1:33 PM CDT Respiratory Rate 16 12/22/2021 1:33 PM CDT Oxygen Saturation 99% 12/22/2021 1:33 PM CDT Inhaled Oxygen Concentration - - Weight 120.2 kg (265 lb) 07/06/2023 1:29 PM LOCAL COMBINATION TRUCK DRIVER Height 177.8 cm (5' 10) 07/06/2023 1:29 PM LOCAL COMBINATION TRUCK DRIVER Body Mass Index 38.02 07/06/2023 1:29 PM LOCAL COMBINATION TRUCK DRIVER Plan of Treatment Health Maintenance Due Date Last Done Comments ADVANCE CARE PLANNING 1963 ANNUAL REVIEW OF HM ORDERS 1963 CT COLONOGRAPHY 1963 DEPRESSION ACTION PLAN 1963 FIT 1963 FLEX SIG 1963 HEPATITIS B IMMUNIZATION (1 of 3 - 3-dose series) 1963 PHQ-9 1963 sDNA (Cologuard) 1963 HIV SCREENING 10/27/1978 HEPATITIS C SCREENING 10/27/1981 PAP 10/27/1984 LIPID 2003 YEARLY PREVENTIVE VISIT 07/20/2024 07/20/19 24, 07/17/2022, 07/13/2021, Additional history exists GLUCOSE 12/22/2024 12/22/2021 MAMMO SCREENING 07/20/2025 07/20/2023, 06/26, 07/17/2022, Additional history exists COLONOSCOPY 01/11/2032 01/10/2022 COLORECTAL CANCER SCREENING 01/11/2032 DTAP/TDAP/TD IMMUNIZATION (5 - Td or Tdap) 07/17/2032 07/17/2022, 06/03/2012, 03/26/2003, Additional history exists ZOSTER IMMUNIZATION Completed 07/05/2018, 8 Pneumococcal Vaccine: Pediatrics (0 to 5 Years) and At-Risk Patients (6 to 64 Years) Aged Out 03/10/2022 No longer eligible based on patient's age to complete this topic COVID-19 Vaccine Completed 03/16/2023, 07/2021, 2021, Additional history exists INFLUENZA VACCINE Completed 03/16/2023, , 03/09/2021, Additional history exists HPV IMMUNIZATION Aged Out No longer e ligible based on patient's age to complete this topic IPV IMMUNIZATION Aged Out No longer e ligible based on patient's age to complete this topic MENINGITIS IMMUNIZATION Aged Out No l onger eligible based on patient's age to complete this topic RSV MONOCLONAL ANTIBODY Aged Out No l onger eligible based on patient's age to complete this topic Care Teams Tag Machine Operator Relationship Specialty Start Date End Date Molina Warren MD [facility] [address] [place] [address] PCP - General Hematology & Oncology 09/02/21 Louise Musatfa RN Specialty Digital Media Specialist Hematology & Oncology 09/02/21 Emely Bauman MD [address] [place] [address] Hematology & Oncology 11/30/21 Emely Bauman MD [address] [place] [address] Assigned Cancer Care Provider 12/31/21 Chio Wilson, LETITIA Specialty Digital Media Specialist Hematology & Oncology 03/06/23
--- OUTSIDE RECORDS SUMMARY | 2023-08-07 13:58 | XMS_ITS | Encounter Summary ---
Author Name Unknown Organization [facility] Address [address] [place] [address] Care Team Providers Care Instrument Shop Supervisor Name Role Phone Molina Warren MD Primary Care Provider [phone] Louise Mustafa RN Unavailable [phone] Emely Bauman MD Unavailable [phone] Emely Bauman MD Unavailable [phone] Chio Wilson RN Unavailable Unavailable Reason for Referral * Diagnostic Imaging MRI (Routine) - Pending Review Specialty Diagnoses / Procedures Referred By [facility] Referred To Contact Radiology. Diagnoses Choroidal malignant melanoma, left (H) Procedures MR Abdomen w/o & w Contrast Emely Bauman MD [address] [place] [address] Referral ID Status Reason Start Date Expiration Date V isits Requested Visits Authorized [id number] Pending Review 07/06/2023 07/05/2024 1 1 MAKER * Diagnostic Imaging CT Scan (Routine) - Pending Review Specialty Diagnoses / Procedures Referred By Contac t Referred To Contact Radiology. Diagnoses Choroidal malignant melanoma, left (H) Procedures CT Chest w/o Contrast Emely Bauman MD [address] [place] [id number] Referral ID Status Reason Start Date Expiration Date V isits Requested Visits Authorized [id number] Pending Review 07/06/2023 07/05/2024 1 1 MAKER Reason for Visit * Reason Comments Follow Up 3 month follow up, n o updates per pt. Medications/allergies reviewed by pt via Mychart, no changes per pt. Encounter Details Date Type Department Care Team (Late st Contact Info) Description 07/06/2023 2:00 PM LURE MAKER Virtual Visit [facility] [address] [place] [phone] Emely Bauman MD [address] [place] [address] Choroidal malignant melanoma, left (H) (Primary Dx) Social History Tobacco Use Types Packs/Day Years Used Date Smoking Tobacco: Never Passive Smoke Exposure: Never Smokeless Tobacco: Never Adolescent Education Answer Date Record ed Getting School Help Needed Not on file 03/17 Sex and Gender Information Value Date Recorded Sex Assigned at Female 08/22/2021 11:54 AM LURE MAKER Gender Identity Female 08/22/2021 11:54 AM LURE MAKER Sexual Orientation Straight 08/22/2021 11 :54 AM LURE MAKER documented as of this encounter Last Filed Vital Signs Vital Sign Reading Time Taken Comments Blood Pressure - - Pulse - - Temperature - - Respiratory Rate - - Oxygen Saturation - - Inhaled Oxygen Concentration - - Weight 120.2 kg (265 lb) 07/06/2023 1:29 PM LURE MAKER Height 177.8 cm (5' 10) 07/06/2023 1:29 PM LURE MAKER Body Mass Index 38.02 07/06/2023 1:29 PM LURE MAKER documented in this encounter Progress Notes * Emely Bauman MD - 07/06/2023 2:00 PM CST Virtual Visit Details Type of service: Video Visit Originating Location (pt. Location): Home Distant Location (provider location): On-site Platform used for Video Visit: [facility] MEDICAL ONCOLOGY PROGRESS NOTE Melanoma Clinic Jul 06, 2023 Chief Complaint: Ciliochoroidal melanoma Oncologic History: [...] enucleation. Pathology shows a pT3b ciliochoroidal melanoma aczukrwlh14.5 x 15.5 x 16.25 mm, cell type: spindle cell melanoma (Grade 1), location: Anterior margin involving the pars plana of the ciliary body, posterior margin abutting the optic nerve head, microvascular pattern: Networks, mitotic count: 8 per 40 high power ramsey, no evidence of intrascleral invasion or extrascleral extension in the sections examined. GEP testing returned Class 2, PRAME-negative, BAP1 Y173*, [id number]. History of Present Illness: Latrice Thomas is a 57 year old woman with a diagnosis of choroidal melanoma. She presents with her today to review her status. On 10/03/21 she underwent enucleation and she was found to have Class 2 tumor. Interval history She is doing well and denies any complaints. She is on 60 mg of propranolol as adjuvant therapy. She continues to have no issues with low blood pressure, lightheadedness and low heart rates. She recently saw her dermatology provider for which they removed 3 moles. Two of the three lesions in R breast and R upper thigh came back positive for squamous cell. Otherwise she denies having any new lumpsor bump. She had MRI-abdomen and CT Chest 05/2023, which showed no evidence of metastasis. Current Outpatient Medications Medication Sig Dispense Refill baclofen (LIORESAL) 10 MG tablet Take 10 mg by mouth buPROPion (WELLBUTRIN SR) 150 MG 12 hr tablet 2 tabs in the morning, 1 tab in the evening citalopram (CELEXA) 20 MG tablet Take 1 tablet (20 mg) by mouth cyclobenzaprine (FLEXERIL) 10 MG tablet Take 10 mg by mouth esomeprazole (NEXIUM) [address] capsule Take 80 mg by mouth meloxicam (MOBIC) 15 MG tablet Take 1 tablet daily as needed for pain phxckeez-ywifppkhk-kulinacmnnyao (MAXITROL) 3.5-18746-7.1 SUSP ophthalmic susp INSTILL 1 DROP INTO THE AFFECTED EYE FOUR TIMES DAILY nitroGLYcerin (NITRO-BID) 2 % OINT ointment Place 0.25 g rectally nystatin (MYCOSTATIN) 974199 UNIT/GM external powder Apply 1 strip topically propranolol ER (INDERAL LA) 60 MG 24 hr capsule TAKE 1 CAPSULE BY MOUTH DAILY 90 capsule 3 scopolamine (TRANSDERM) 1 MG/3DAYS [address] 1 patch onto the skin zolpidem ER (AMBIEN CR) 6.25 MG CR tablet Take 6.25 mg by mouth Past medical, surgical, social, and family histories reviewed. Past Medical History: Diagnosis Date Acquired hypothyroidism 04/01/2018 Choroidal malignant melanoma, left (H) 12/22/2021 Gastroesophageal reflux disease without esophagitis 05/04/2006 Major depressive disorder, recurrent episode (H24) 05/04/2006 Past Surgical History: Procedure Laterality Date ENUCLEATION Left 10/03/2021 No family history on file. Physical Examination: Ht 1.778 m (5' 10) Wt 120.2 kg (265 lb) BMI 38.02 kg/m?? Wt Readings from Last 5 Encounters: 07/06/23 120.2 kg (265 lb) 12/28/22 120.2 kg (265 lb) 12/22/21 120 [...] normal speech and appearance well-groomed. Laboratory Data: 07/06/23 labs reviewed, which showed normal sodium, potassium. Glucose 105. Normal calcium, BUN and creatinine. BUN/Cr ratio 24. eGFR 85. Triglyceride elevated at 177, VLDL increased 30 TSH low at 0.08 06/12/23 CBC normal I personally reviewed the above labs. Imaging Studies: CT-chest, 06/12/2023 INDICATION: Choroidal malignant melanoma TECHNIQUE: CT chest [...] disease. 2. Chronic atherosclerotic disease. 3. Cholecystectomy. Abdominal MRI, 06/16/2023 INDICATION: Melanoma. Liver lesion. TECHNIQUE: Abdominal MRI. [...] tree: Normal caliber. The gallbladder is absent. 1. Stable small single enhancing lesion subcapsular segment II. No change continued surveillance could be obtained. 2. No new suspicious liver lesions. 3. Gallbladder surgery. I personally reviewed the above imaging in [...] (Kerry Lucas) and labs Multiple questions answered. Jarret Hernandez, MS4. --- I was present with the medical student who participated in the service and in the documentation of the note. I have verified the history and personally performed the physical exam and medical decision making. I agree with the assessment and plan of care as documented in the note Emely Gooden M.D. Senior Net Application Developerassistant manager/embalmer Hematology, Oncology and Transplantation [facility] MAKER documented in this encounter Nursing Notes * Jackie Razo - 07/06/2023 2:00 PM CST Patient denies any changes since echeck-in regarding medication and allergies and states all information entered during echeck-in remains accurate. Is the patient currently in the state of [place]? YES Visit mode:VIDEO If the visit is dropped, the patient can be reconnected by: VIDEO VISIT: Send to e-mail at: [email or web address] Will anyone else be joining the visit? YES: Everett will be joining visit today per pt. (If patient encounters technical issues they should call [phone]) How would you like to obtain your AVS? MyChart Are changes needed to the allergy or medication list? No, Pt stated no changes to allergies, and Ptstated no med changes Reason for visit: Follow Up (3 month follow up, no updates per pt. Medications/allergies reviewed by pt via [employer], no changes per pt. ) Billy Salinas/MA. MAKER documented in this encounter Plan of Treatment Scheduled Orders Name Type Priority Associated Diagnoses Orde r Schedule CT Chest w/o Contrast Imaging Routine Choroidal malignant melanoma, left (H) Expected: 10/05/2023 (Approximate), Expires: 07/06/2024 MR Abdomen w/o & w Contrast Imaging Routine Choroidal malignant melanoma, left (H) Expected: 10/05/2023 (Approximate), Expires: 07/05/2024 Comprehensive metabolic panel Lab Routine Choroidal malignant melanoma, left (H) Expected: 10/05/2023 (Approximate), Expires: 07/06/2024 CBC with Platelets & Differential Lab Panel Routine Choroidal malignant melanoma, left (H) Expected: 10/05/2023 (Approximate), Expires: 07/06/2024 documented as of this encounter Visit Diagnoses Diagnosis Choroidal malignant melanoma, left (H)- Primary documented in this encounter Care Teams Instrument Shop Supervisor Relationship Specialty Start Date End Date Molina Warren MD [facility] [address] [place] [address] PCP - General Hematology & Oncology 09/02/21 Louise Mustafa, LETITIA Specialty Carbon Sequestration Plant Operator Hematology & Oncology 09/02/21 Emely Bauman MD [address] [place] [address] Hematology & Oncology 11/30/21 Emely Bauman MD [address] [place] [address] Assigned Cancer Care Provider 12/31/21 Chio Wilson, LETITIA Specialty Carbon Sequestration Plant Operator Hematology & Oncology 03/06/23 documented as of this encounter
--- OUTSIDE RECORDS SUMMARY | 2023-08-07 13:58 | XMS_ITS | Encounter Summary ---
Author Name Unknown Organization [facility] Address [address] [place] [address]. [place] [address] Care Team Providers Care Bone Puller Name Role Phone Molina Warren MD Primary Care Provider [phone] Louise Mustafa RN Unavailable [phone] Radha Clark RN Unavailable [phone] Emely Bauman MD Unavailable [phone] Emely Bauman MD Unavailable [phone] Chio Wilson RN Unavailable Unavailable Encounter Details Date Type Department Care Team (Late st Contact Info) Description 11/24/2022 [facility] Medical Advice [facility] [address] [place] [phone] Emely Bauman MD [address] [place] [address] Social History Tobacco Use Types Packs/Day Years Used Date Smoking Tobacco: Never Smokeless Tobacco: Never Sex and Gender Information Value Date Recorded Sex Assigned at Female 08/22/2021 11:54 AM MAINTENANCE ELECTRICIAN Gender Identity Female 08/22/2021 11:54 AM MAINTENANCE ELECTRICIAN Sexual Orientation Straight 08/22/2021 11 :54 AM MAINTENANCE ELECTRICIAN documented as of this encounter Plan of Treatment Not on file documented as of this encounter Visit Diagnoses Not on filedocumented in this encounter Care Teams Bone Puller Relationship Specialty Start Date End Date Molina Warren MD [facility] [address] [place], [place] [phone] PCP - General Hematology & Oncology 09/02/21 Louise Mustafa, RN Specialty Business Instructor Hematology & Oncology 09/02/21 Radha Clark RN Specialty Business Instructor Hematology & Oncology 11/30/21 02/19/23 Emely Bauman MD [address] [place], [place] [address] Hematology & Oncology 11/30/21 Emely Bauman MD [address] [place] [address] Assigned Cancer Care Provider 12/31/21 Chio Wilson, LETITIA Specialty Business Instructor Hematology & Oncology 03/06/23 documented as of this encounter
--- OUTSIDE RECORDS SUMMARY | 2023-08-07 13:58 | XMS_ITS | Encounter Summary ---
Author Name Unknown Organization [facility] Address [address] [place] [address] Care Team Providers Care Cooking Appliance Repair Technician Name Role Phone Molina Warren MD Primary Care Provider [phone] Louise Mustafa RN Unavailable [phone] Radha Clark RN Unavailable [phone] Emely Bauman MD Unavailable [phone] Emely Bauman MD Unavailable [phone] Reason for Referral * Diagnostic Imaging MRI (Routine) - Pending Review Specialty Diagnoses / Procedures Referred By Carrie sherwood Referred To Contact Radiology. Diagnoses Choroidal malignant melanoma, left (H) Procedures MR Abdomen w/o & w Contrast Emely Bauman MD [address] [place] [address] Referral ID Status Reason Start Date Expiration Date V isits Requested Visits Authorized [id number] Pending Review 09/07/2022 09/07/2023 1 1 * Diagnostic Imaging CT Scan (Routine) - Pending Review Specialty Diagnoses / Procedures Referred By Carrie sherwood Referred To Contact Radiology. Diagnoses Choroidal malignant melanoma, left (H) Procedures CT Chest Low Dose Non Contrast Emely Bauman MD [address] [place] [address] Referral ID Status Reason Start Date Expiration Date V isits Requested Visits Authorized [id number] Pending Review 09/07/2022 09/07/2023 1 1 * Diagnostic Imaging MRI (Routine) - Pending Review Specialty Diagnoses / Procedures Referred By Contac t Referred To Contact Radiology. Procedures MR Outside Read Emely Bauman MD [address] [place] [address] Referral ID Status Reason Start Date Expiration Date V isits Requested Visits Authorized [id number] Pending Review 09/07/2022 09/07/2023 1 1 Reason for Visit * Reason Comments Oncology Clinic Visit Follow up - MRI/CT scan on Sunday, questionable spot on liver Encounter Details Date Type Department Care Team (Late st Contact Info) Description 09/07/2022 9:15 AM CDT Virtual Visit [facility] [address] [place] [phone] Emely Bauman MD [address] [place] [address] Choroidal malignant melanoma, left (H) (Primary Dx) Social History Tobacco Use Types Packs/Day Years Used Date Smoking Tobacco: Never Smokeless Tobacco: Never Tobacco Cessation:Counseling Given: Not Answered Sex and Gender Information Value Date Recorded Sex Assigned at Female 08/22/2021 11:54 AM HALL SUPERVISOR Gender Identity Female 08/22/2021 11:54 AM HALL SUPERVISOR Sexual Orientation Straight 08/22/2021 11 :54 AM HALL SUPERVISOR documented as of this encounter Progress Notes * Emely Bauman MD - 09/07/2022 9:15 AM CDT Video-Visit Details Type of service: Video Visit Video Start Time (time video started): 9:20 AM Video End Time (time video stopped): 9:45 AM Originating Location (pt. Location): Home Distant Location (provider location): Off-site Mode of Communication: Video Conference via [facility] ONCOLOGY PROGRESS NOTE Melanoma Clinic Sep 07, 2022 Chief Complaint: Ciliochoroidal melanoma Oncologic History: --June [...] enucleation. Pathology shows a pT3b ciliochoroidal melanoma ijukcbpxu34.5 x 15.5 x 16.25 mm, cell type: spindle cell melanoma (Grade 1), location: Anterior margin involving the pars plana of the ciliary body, posterior margin abutting the optic nerve head, microvascular pattern: Networks, mitotic count: 8 per 40 high power ramsey, no evidence of intrascleral invasion or extrascleral extension in the sections examined. GEP testing returned Class 2, PRAME-negative, BAP1 Y173*, [id number]. History of Present Illness: Latrice Thomas is a 56 year old woman with a diagnosis of choroidal melanoma. She presents with her today to review her status. On 10/03/21 she underwent enucleation. She was found to have Class 2tumor. She is doing well. Her anxiety has gotten better. She takes propranolol 60 mg and celexa for anxiety. She and her are going to [place] at the end of October. She had CT-chest and MRI-abdomen on 09/05/2022 ([facility]) and these showed a T2 hyperintense lesion in the anterior part of segment 3 of the liver. This is present on prior studies. Radiologic interpretation ([facility]) suggests concern despite the recent stability. Otherwise, no evidence of metastasis. Review of Systems: 12-point ROS negative except as in HPI Current Outpatient Medications Medication Sig Dispense Refill [...] tablet daily as needed for pain ??? dsasvpvc-yvgmvyypa-hcyrzheujriqq (MAXITROL) 3.5-99922-6.1 SUSP ophthalmic susp INSTILL 1 DROP INTO THE AFFECTED EYE FOUR TIMES DAILY ??? nitroGLYcerin (NITRO-BID) 2 % OINT ointment Place 0.25 g rectally ??? nystatin (MYCOSTATIN) 822085 UNIT/GM external powder Apply 1 strip topically ??? propranolol ER (INDERAL LA) 60 MG 24 hr capsule Take 1 capsule (60 mg) by mouth daily 90 capsule 3 ??? scopolamine (TRANSDERM) 1 [...] 05/04/2006 ??? Major depressive disorder, recurrent episode (H) 05/04/2006 Past Surgical History: Procedure Laterality Date ??? ENUCLEATION Left 10/03/2021 No family history on file. Physical Examination: There were no vitals taken for this visit. Wt Readings from Last 5 Encounters: 12/22/21 120 kg (264 lb 8 oz) [...] normal speech and appearance well-groomed. Laboratory Data: [facility] Ref Range & Units 09/05/2022 SODIUM 135 - 145 mmol/L 140 POTASSIUM 3.5 - 5.0 mmol/L 4.1 CHLORIDE 98 - 110 mmol/L 105 CO2,TOTAL 21 - 31 mmol/L 29 ANION GAP 5 - 18 6 GLUCOSE 70 - 99 mg/dL 91 CALCIUM 8.5 - 10.5 mg/dL 9.3 BUN 8 - 25 mg/dL 18 CREATININE 0.57 - 1.11 mg/dL 0.82 BUN/CREAT RATIO ? 10 - 20 22??High?? ALBUMIN 3.5 - 5.2 g/dL 4.2 PROTEIN,TOTAL 6.0 - 8.0 g/dL 6.9 GLOBULIN ? 2.0 - 3.7 g/dL 2.7 A/G RATIO 1.0 - 2.0 1.6 BILIRUBIN,TOTAL 0.2 - 1.2 mg/dL 0.5 ALK PHOSPHATASE 50 - 136 IU/L 70 ALT (SGPT) 8 - 45 IU/L 29 AST (SGOT) 2 - 40 IU/L 23 eGFR >90 mL/min/1.73m2 83??Low?? WHITE BLOOD COUNT ? 4.5 - 11.0 thou/cu mm 8.7 RED BLOOD COUNT ? 4.00 - 5.20 mil/cu mm 4.81 HEMOGLOBIN ? 12.0 - 16.0 g/dL 14.7 HEMATOCRIT ? 33.0 - 51.0 % 44.8 MCV ? 80 - 100 fL 93 MCH ? 26.0 - 34.0 pg 30.6 MCHC ? 32.0 - 36.0 g/dL 32.8 RDW ? 11.5 - 15.5 % 13.9 PLATELET COUNT ? 140 - 440 thou/cu mm 309 MPV ? 6.5 - 11.0 fL 8.6 % NEUT % 70.8 % LYMPH % 20.9 % MONO % 7.6 % EOS % 0.5 % BASO % 0.2 ABSOLUTE NEUTROPHILS ? 1.7 - 7.0 thou/cu mm 6.2 ABSOLUTE LYMPHOCYTES ? 0.9 - 2.9 thou/cu mm 1.8 ABSOLUTE MONOCYTES ? <0.9 thou/cu mm 0.7 ABSOLUTE EOSINOPHILS ? <0.5 thou/cu mm 0.0 ABSOLUTE BASOPHILS ? <0.3 thou/cu mm 0.0 Imaging Studies: MR Outside Read Narrative: EXAMINATION: MR OUTSIDE READ, 09/07/2022 11:29 AM [...] tissues: Within normal limits. Lower thorax: Normal. Impression: IMPRESSION: 1. Stable subcapsular markedly T2 hyperintense liver segment 3 lesion most consistent with hemangioma. No evidence of liver metastasis. 2. Hepatic steatosis. I have personally reviewed the examination and initial interpretation and I agree with the findings. CARLYLE LEON MD I reviewed the imaging in PACS. 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 She had restaging CT-chest and MRI- abdomen, which were negative for obvious evidence of metastasis. We briefly discussed the data for adjuvant sunitinib. High risk uveal melanoma has high rates of metastasis and with reported 2-year survival rates ranging from 50% to 78%. In a phase 2 study patients were randomized to receive either sunitinib 25 mg daily or valproic acid (VPA) 750 mg daily as adjuvant treatment for 6 consecutive months. With a median follow-up of 40.2 months, the 2-year OS rates of the sunitinib and VPA group were 95.6% (90% CI 86.5-98.6) and 90.7% (90% CI 80.1 - 95.8),respectively. She elects to continue with observation. We will continue MRI-abdomen and Ct-chest every 3 months going forward, at least for the first 2-3 years, then gradual lengthening to every 6 months thereafter. -continue propranolol 60 mg daily -RTC in 3 months with MRI-abdomen and CT-chest (Kerry Lucas) and labs -Outside MRI interpretation for opinion on hemangioma? Multiple questions answered. Emely Gooden M.D. Assistant Manager Of Operationsjava portal developer Hematology, Oncology and Transplantation Pager [phone] documented in this encounter Nursing Notes * Joseph Montero - 09/07/2022 9:15 AM CDT Is the patient currently in the state of [place]? YES Visit mode:VIDEO If the visit is dropped, the patient can be reconnected by: VIDEO VISIT: Text to cell phone: [phone] Will anyone else be joining the visit? NO How would you like to obtain your AVS? MyChart Are changes needed to the allergy or medication list? NO Reason for visit: no documented in this encounter Plan of Treatment Scheduled Orders Name Type Priority Associated Diagnoses Orde r Schedule CT Chest Low Dose Non Contrast Imaging Routine Choroidal malignant melanoma, left (H) Expected: 12/08/2022 (Approximate), Expires: 09/08/2023 MR Abdomen w/o & w Contrast Imaging Routine Choroidal malignant melanoma, left (H) Expected: 12/08/2022 (Approximate), Expires: 09/07/2023 CBC with Platelets & Differential Lab Panel Routine Choroidal malignant melanoma, left (H) Expected: 12/08/2022 (Approximate), Expires: 09/08/2023 Comprehensive metabolic panel Lab Routine Choroidal malignant melanoma, left (H) Expected: 12/08/2022 (Approximate), Expires: 09/08/2023 documented as of this encounter Results * MR Outside Read [...] BLES documented in this encounter Visit Diagnoses Diagnosis Choroidal malignant melanoma, left (H)- Primary documented in this encounter Care Teams Cooking Appliance Repair Technician Relationship Specialty Start Date End Date Molina Warren MD [facility] [address] [place], [place] [phone] PCP - General Hematology & Oncology 09/02/21 Louise Mustafa RN Specialty Marble Supervisor Hematology & Oncology 09/02/21 Radha Clark RN Specialty Marble Supervisor Hematology & Oncology 11/30/21 02/19/23 Emely Bauman MD [address] [place] [address] [id number] Hematology & Oncology 11/30/21 Emely Bauman MD [address] [place] [address] Assigned Cancer Care Provider 12/31/21 documented as of this encounter
--- OUTSIDE RECORDS SUMMARY | 2023-08-07 13:58 | XMS_ITS | Encounter Summary ---
Author Name Unknown Organization [facility] Address [address] [place] [address]. [place] [address] Care Team Providers Care Microstrategy Architect Name Role Phone Molina Warren MD Primary Care Provider [phone] Louise Mustafa RN Unavailable [phone] Radha Clark RN Unavailable Emely Bauman MD Unavailable [phone] Emely Bauman MD Unavailable [phone] Chio Wilson RN Unavailable Unavailable Encounter Details Date Type Department Care Team (Late st Contact Info) Description 08/08/2022 [facility] Medical Advice [facility] [address] [place] [phone] Emely Bauman MD [address] [place] [address] Social History Tobacco Use Types Packs/Day Years Used Date Smoking Tobacco: Never Smokeless Tobacco: Never Sex and Gender Information Value Date Recorded Sex Assigned at Female 08/22/2021 11:54 AM RESEARCH NURSE PRACTITIONER Gender Identity Female 08/22/2021 11:54 AM RESEARCH NURSE PRACTITIONER Sexual Orientation Straight 08/22/2021 11 :54 AM RESEARCH NURSE PRACTITIONER documented as of this encounter Plan of Treatment Not on file documented as of this encounter Visit Diagnoses Not on filedocumented in this encounter Care Teams Microstrategy Architect Relationship Specialty Start Date End Date Molina Warren MD [facility] [address] [place], [place] [address] PCP - General Hematology & Oncology 09/02/21 Louise Mustafa, RN Specialty Speech Language Pathologist Travel Hematology & Oncology 09/02/21 Radha Clark RN Specialty Speech Language Pathologist Travel Hematology & Oncology 11/30/21 02/19/23 Emely Bauman MD [address] [place], [place] [phone] Hematology & Oncology 11/30/21 Emely Bauman MD [address] [place] [address] Assigned Cancer Care Provider 12/31/21 Chio Wilson, LETITIA Specialty Speech Language Pathologist Travel Hematology & Oncology 03/06/23 documented as of this encounter
--- OUTSIDE RECORDS SUMMARY | 2023-08-07 13:58 | XMS_ITS | Encounter Summary ---
Author Name Unknown Organization [facility] Address [address] [place] [address]. [place] [address] Care Team Providers Care Icer Machine Name Role Phone Molina Warren MD Primary Care Provider [phone] Louise Mustafa RN Unavailable [phone] Radha Clark RN Unavailable Emely Bauman MD Unavailable [phone] Emely Bauman MD Unavailable Chio Wilson RN Unavailable Unavailable Encounter Details Date Type Department Care Team (Late st Contact Info) Description 12/06/2022 [facility] [address] [place] [phone] Emely Bauman MD [address] [place] [address] Social History Tobacco Use Types Packs/Day Years Used Date Smoking Tobacco: Never Smokeless Tobacco: Never Sex and Gender Information Value Date Recorded Sex Assigned at Female 08/22/2021 11:54 AM CABANA ATTENDANT Gender Identity Female 08/22/2021 11:54 AM CABANA ATTENDANT Sexual Orientation Straight 08/22/2021 11 :54 AM CABANA ATTENDANT documented as of this encounter Plan of Treatment Not on file documented as of this encounter Visit Diagnoses Not on filedocumented in this encounter Care Teams Icer Machine Relationship Specialty Start Date End Date Molina Warren MD [facility] [address] [place], [place] [address] PCP - General Hematology & Oncology 09/02/21 Louise Mustafa, RN Specialty Epilepsy Physician Hematology & Oncology 09/02/21 Radha Clark RN Specialty Epilepsy Physician Hematology & Oncology 11/30/21 02/19/23 Emely Bauman MD [address] [place], [place] [address] Hematology & Oncology 11/30/21 Emely Bauman MD [address] [place] [address] Assigned Cancer Care Provider 12/31/21 Chio Wilson, LETITIA Specialty Epilepsy Physician Hematology & Oncology 03/06/23 documented as of this encounter
--- OUTSIDE RECORDS SUMMARY | 2023-08-07 13:58 | XMS_ITS | Encounter Summary ---
Author Name Unknown Organization [facility] Address [address] [place] [address] Care Team Providers Care Numerical Control Nesting Operator Name Role Phone Molina Warren MD Primary Care Provider [phone] Louise Mustafa RN Unavailable [phone] Emely Bauman MD Unavailable Emely Bauman MD Unavailable Reason for Visit * Reason Comments Medication Refill Encounter Details Date Type Department Care Team (Late st Contact Info) Description 03/04/2023 [facility] [address] [place] [phone] Emely Bauman MD [address] [place] [address] Medication Refill Social History Tobacco Use Types Packs/Day Years Used Date Smoking Tobacco: Never Smokeless Tobacco: Never Sex and Gender Information Value Date Recorded Sex Assigned at Female 08/22/2021 11:54 AM MARKETER Gender Identity Female 08/22/2021 11:54 AM MARKETER Sexual Orientation Straight 08/22/2021 11 :54 AM MARKETER documented as of this encounter Miscellaneous Notes * Telephone Encounter - Shahnaz Jimenez RN - 03/05/2023 1:42 PM CDT Medication requested: Propranolol ER 60 MG 24 hr capsule Last prescribing provider: Dr. Levi on 04/26/22 Last clinic visit date: 12/28/[address] Levi Recommendations for requested medication (if none, N/A): NA Any other pertinent information (if none, N/A): NA Refilled: Y/N, if NO, why? Pended and Routed to Dr. Levi documented in this encounter Plan of Treatment Not on file documented as of this encounter Visit Diagnoses Diagnosis Benign essential hypertension Essential hypertension, benign documented in this encounter Care Teams Numerical Control Nesting Operator Relationship Specialty Start Date End Date Molina Warren MD [facility] [address] [place], [place] [address] PCP - General Hematology & Oncology 09/02/21 Louise Mustafa RN Specialty Business Attorney Hematology & Oncology 09/02/21 Emely Bauman MD [address] [place] [address] Hematology & Oncology 11/30/21 Emely Bauman MD [address] [place] [address] Assigned Cancer Care Provider 12/31/21 documented as of this encounter
--- OUTSIDE RECORDS SUMMARY | 2023-08-07 13:58 | XMS_ITS | Encounter Summary ---
Author Name Unknown Organization [facility] Address [address] [place] [address]. [place] [address] Care Team Providers Care Straw Hat Washer Operator Name Role Phone Molina Warren MD Primary Care Provider [phone] Louise Mustafa RN Unavailable [phone] Radha Clark RN Unavailable Emely Bauman MD Unavailable [phone] Emely Bauman MD Unavailable [phone] Chio Wilson RN Unavailable Unavailable Encounter Details Date Type Department Care Team (Late st Contact Info) Description 05/07/2022 [facility] [address] [place] [phone] Emely Bauman MD [address] [place] [address] Social History Tobacco Use Types Packs/Day Years Used Date Smoking Tobacco: Never Smokeless Tobacco: Never Sex and Gender Information Value Date Recorded Sex Assigned at Female 08/22/2021 11:54 AM STEEP TENDER Gender Identity Female 08/22/2021 11:54 AM STEEP TENDER Sexual Orientation Straight 08/22/2021 11 :54 AM STEEP TENDER documented as of this encounter Plan of Treatment Not on file documented as of this encounter Visit Diagnoses Not on filedocumented in this encounter Care Teams Straw Hat Washer Operator Relationship Specialty Start Date End Date Molina Warren MD [facility] [address] [place], [place] [address] PCP - General Hematology & Oncology 09/02/21 Louise Mustafa, RN Specialty Shopper Marketing Manager Hematology & Oncology 09/02/21 Radha Clark RN Specialty Shopper Marketing Manager Hematology & Oncology 11/30/21 02/19/23 Emely Bauman MD [address] [place], [place] [address] Hematology & Oncology 11/30/21 Emely Bauman MD [address] [place] [address] Assigned Cancer Care Provider 12/31/21 Chio Wilson, LETITIA Specialty Shopper Marketing Manager Hematology & Oncology 03/06/23 documented as of this encounter
--- OUTSIDE RECORDS SUMMARY | 2023-08-07 13:58 | XMS_ITS | Referral Summary ---
Author Name Unknown Organization [facility] Address [address] [place] [address] Care Team Providers Care Wood Molder Name Role Phone Molina Warren MD Primary Care Provider Louise Mustafa RN Unavailable [phone] Emely Bauman MD Unavailable Emely Bauman MD Unavailable [phone] Chio Wilson RN Unavailable Unavailable Encounters Date Type Department Care Team Description 07/09/[address] [facility] [address] [address] Emely Bauman MD 07/06/2023 2:00 PM TECHNICAL ILLUSTRATIONS MAP INKER Virtual Visit [facility] [address] [address] Emely Bauman MD Choroidal malignant melanoma, left (H) (Primary Dx) from Last 3 Months Allergies Active Allergy Reactions Criticality Noted Date [...] the skin 0 07/13/2021 Active nystatin (MYCOSTATIN) 822643 UNIT/GM external powder Apply 1 strip topically 0 07/18/2021 Active citalopram (CELEXA) 20 MG tablet Take 1 tablet (20 mg) by mouth 0 02/17/2022 Active ydhjrgax-lcrwcelpw-l examethasone (MAXITROL) 3.5-09584-3.1 SUSP ophthalmic susp INSTILL 1 DROP INTO [...] without esophagi tis 05/04/2006 Mixed hyperlipidemia 04/25/2006 Immunizations Name Administration Dates Next Due COVID-19 [...] Sex Assigned at Female 08/22/2021 11:54 AM TECHNICAL ILLUSTRATIONS MAP INKER Gender Identity Female 08/22/2021 11:54 AM TECHNICAL ILLUSTRATIONS MAP INKER Sexual Orientation Straight 08/22/2021 11 :54 AM TECHNICAL ILLUSTRATIONS MAP INKER Last Filed Vital Signs Vital Sign Reading Time Taken Comments Blood Pressure 159/97 12/22/2021 1:33 PM CDT Pulse 81 12/22/2021 1:33 PM CDT Temperature 36.7 ??C (98 ??F) 12/22/2021 1:33 PM CDT Respiratory Rate 16 12/22/2021 1:33 PM CDT Oxygen Saturation 99% 12/22/2021 1:33 PM CDT Inhaled Oxygen Concentration - - Weight 120.2 kg (265 lb) 07/06/2023 1:29 PM TECHNICAL ILLUSTRATIONS MAP INKER Height 177.8 cm (5' 10) 07/06/2023 1:29 PM TECHNICAL ILLUSTRATIONS MAP INKER Body Mass Index 38.02 07/06/2023 1:29 PM TECHNICAL ILLUSTRATIONS MAP INKER Plan of Treatment Not on file Care Teams Wood Molder Relationship Specialty Start Date End Date Molina Warren MD [facility] [address] [place], [place] [address] PCP - General Hematology & Oncology 09/02/21 Louise Mustafa, LETITIA Specialty Caustic Purification Operator Hematology & Oncology 09/02/21 Emely Bauman MD [address] [place] [address] Hematology & Oncology 11/30/21 Emely Bauman MD [address] [place] [address] Assigned Cancer Care Provider 12/31/21 Chio Wilson, LETITIA Specialty Caustic Purification Operator Hematology & Oncology 03/06/23
--- OUTSIDE RECORDS SUMMARY | 2023-08-07 13:58 | XMS_ITS | Encounter Summary ---
Author Name Unknown Organization [facility] Address [address] [place] [address] Care Team Providers Care Director Of Optimization Name Role Phone Molina Warren MD Primary Care Provider [phone] Louise Mustafa RN Unavailable [phone] Radha Clark RN Unavailable [phone] Emely Bauman MD Unavailable [phone] Emely Bauman MD Unavailable [phone] Reason for Referral * Diagnostic Imaging CT Scan (Routine) - Pending Review Specialty Diagnoses / Procedures Referred By Carrie sherwood Referred To Contact Radiology. Diagnoses Choroidal malignant melanoma, left (H) Procedures CT Chest w/o Contrast Emely Bauman MD [address] [place] [address] Referral ID Status Reason Start Date Expiration Date V isits Requested Visits Authorized [id number] Pending Review 12/28/2022 12/28/2023 1 1 * Diagnostic Imaging MRI (Routine) - Pending Review Specialty Diagnoses / Procedures Referred By Carrie sherwood Referred To Contact Radiology. Diagnoses Choroidal malignant melanoma, left (H) Procedures MR Abdomen w/o & w Contrast Emely Bauman MD [address] [place] [address] Referral ID Status Reason Start Date Expiration Date V isits Requested Visits Authorized [id number] Pending Review 12/28/2022 12/28/2023 1 1 Reason for Visit * Reason Comments Video Visit Encounter Details Date Type Department Care Team ([facility] st Contact Info) Description 12/28/2022 10:15 AM CDT Virtual Visit [facility] [address] [place] [phone] Emely Bauman MD [address] [place] [address] Choroidal malignant melanoma, left (H) (Primary Dx) Social History Tobacco Use Types Packs/Day Years Used Date Smoking Tobacco: Never Smokeless Tobacco: Never Tobacco Cessation:Counseling Given: Not Answered Sex and Gender Information Value Date Recorded Sex Assigned at Female 08/22/2021 11:54 AM CHEMIST PHYSICAL Gender Identity Female 08/22/2021 11:54 AM CHEMIST PHYSICAL Sexual Orientation Straight 08/22/2021 11 :54 AM CHEMIST PHYSICAL documented as of this encounter Last Filed Vital Signs Vital Sign Reading Time Taken Comments Blood Pressure - - Pulse - - Temperature - - Respiratory Rate - - Oxygen Saturation - - Inhaled Oxygen Concentration - - Weight 120.2 kg (265 lb) 12/28/2022 9:48 AM CDT Height 177.8 cm (5' 10) 12/28/2022 9:48 AM CDT Body Mass Index 38.02 12/28/2022 9:48 AM CDT documented in this encounter Progress Notes * Emely Bauman MD - 12/28/2022 10:15 AM CDT Virtual Visit Details Type of service: Video Visit Originating Location (pt. Location): Home Distant Location (provider location): Off-site Platform used for Video Visit: [facility] MEDICAL ONCOLOGY PROGRESS NOTE Melanoma Clinic Dec 28, 2022 Chief Complaint: Ciliochoroidal melanoma Oncologic History: [...] enucleation. Pathology shows a pT3b ciliochoroidal melanoma lhuggqubx50.5 x 15.5 x 16.25 mm, cell type: spindle cell melanoma (Grade 1), location: Anterior margin involving the pars plana of the ciliary body, posterior margin abutting the optic nerve head, microvascular pattern: Networks, mitotic count: 8 per 40 high power ramsey, no evidence of intrascleral invasion or extrascleral extension in the sections examined. GEP testing returned Class 2, PRAME-negative, BAP1 [id number]*, [id number]. History of Present Illness: Latrice Thomas is a 57 year old woman with a diagnosis of choroidal melanoma. She presents with her today to review her status. On 10/03/21 she underwent enucleation and she was found to have Class 2 tumor. She went to [place] at the end of October and she [...] tablet daily as needed for pain ??? vrseashv-ajfbfbohh-zgdwvmvfuuilw (MAXITROL) 3.5-33412-2.1 SUSP ophthalmic susp INSTILL 1 DROP INTO THE AFFECTED EYE FOUR TIMES DAILY ??? nitroGLYcerin (NITRO-BID) 2 % OINT ointment Place 0.25 g rectally ??? nystatin (MYCOSTATIN) 522907 UNIT/GM external powder Apply 1 strip topically [...] normal speech and appearance well-groomed. Laboratory Data: Ref Range & Units 9 d ago SODIUM 135 - 145 mmol/L 142 POTASSIUM 3.5 - 5.0 mmol/L 4.5 CHLORIDE 98 - 110 mmol/L 109 CO2,TOTAL 21 - 31 mmol/L 23 ANION GAP 5 - 18 10 GLUCOSE 70 - 99 mg/dL 105??High?? CALCIUM 8.5 - 10.5 mg/dL 9.4 BUN 8 - 25 mg/dL 24 CREATININE 0.57 - 1.11 mg/dL 0.81 BUN/CREAT RATIO ? 10 - 20 30??High?? ALBUMIN 3.5 - 5.2 g/dL 4.2 PROTEIN,TOTAL 6.0 - 8.0 g/dL 7.0 BILIRUBIN,TOTAL 0.2 - 1.2 mg/dL 0.4 ALK PHOSPHATASE 50 - 136 IU/L 83 ALT (SGPT) 8 - 45 IU/L 23 AST (SGOT) 2 - 40 IU/L 19 eGFR >90 mL/min/1.73m2 84??Low?? TSH 0.27 - 4.20 uIU/mL 0.08??Low?? WHITE BLOOD COUNT ? 4.5 - 11.0 thou/cu mm 8.2 RED BLOOD COUNT ? 4.00 - 5.20 mil/cu mm 4.54 HEMOGLOBIN ? 12.0 - 16.0 g/dL 14.0 HEMATOCRIT ? 33.0 - 51.0 % 42.4 MCV ? 80 - 100 fL 93 MCH ? 26.0 - 34.0 pg 30.8 MCHC ? 32.0 - 36.0 g/dL 33.0 RDW ? 11.5 - 15.5 % 13.7 PLATELET COUNT ? 140 - 440 thou/cu mm 325 MPV ? 6.5 - 11.0 fL 8.6 % NEUT % 65.6 % LYMPH % 26.3 % MONO % 7.5 % EOS % 0.4 % BASO % 0.2 ABSOLUTE NEUTROPHILS ? 1.7 - 7.0 thou/cu mm 5.4 ABSOLUTE LYMPHOCYTES ? 0.9 - 2.9 thou/cu mm 2.2 ABSOLUTE MONOCYTES ? <0.9 thou/cu mm 0.6 ABSOLUTE EOSINOPHILS ? <0.5 thou/cu mm 0.0 ABSOLUTE BASOPHILS ? <0.3 thou/cu mm 0.0 I personally reviewed the above labs. Imaging Studies: MR ABDOMEN WWO, 12/23/2022 (DJZ) INDICATION: Ocular melanoma; screening for metastatic disease. COMPARISON: MRI of the liver 03/22/2022, 05/26/2022 and 09/05/2022. TECHNIQUE: Precontrast T1 and T2 weighted imaging; T2 haste imaging; diffusion weighted imaging; in and out ofphase imaging; postcontrast imaging ; 10 cc of Gadavist contrast was injected. Findings : Significant respiratory motion on the postcontrast imaging degrading the quality of the study. Mild diffuse fatty infiltration of the liver. Again appreciated is a 1.6 x 1.2 cm lesion in segment2 of the liver with high signal on the precontrast T2 haste imaging and possible enhancement postcontrast probably representing a cavernous hemangioma; no interval change. No evidence of metastatic disease. Liver, spleen and pancreas are otherwise unremarkable. No adrenal pathology. Kidneys are unre markable. IMPRESSION 1. 1.6 x 1.2 cm lesion segment 2 of the liver most likely representing a cavernous hemangioma; no interval change. 2. Fatty infiltration of the liver. 3. No convincing evidence of metastatic disease. Dictated by Rosina Benavides MD @ Dec ??1 2022??11:41AM I personally reviewed the above imaging in PACS. 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 She had restaging MRI-abdomen, which was negative for evidence of metastasis. We will continue MRI-abdomen and Ct-chest every 3 months going forward, at least for the first 2-3 years, then gradually lengthen to every 6 months. -continue propranolol 60 mg daily -RTC in 3 months with MRI-abdomen and CT-chest (Kerry Lucas) and labs Multiple questions answered. Emely Gooden M.D. [place] Examinersight effects specialist Hematology, Oncology and Transplantation Pager [phone] documented in this encounter Plan of Treatment Scheduled Orders Name Type Priority Associated Diagnoses Orde r Schedule MR Abdomen w/o & w Contrast Imaging Routine Choroidal malignant melanoma, left (H) Expected: 03/30/2023 (Approximate), Expires: 03/30/2023 CT Chest w/o Contrast Imaging Routine Choroidal malignant melanoma, left (H) Expected: 03/30/2023 (Approximate), Expires: 12/29/2023 Comprehensive metabolic panel Lab Routine Choroidal malignant melanoma, left (H) Expected: 03/30/2023 (Approximate), Expires: 12/29/2023 CBC with Platelets & Differential Lab Panel Routine Choroidal malignant melanoma, left (H) Expected: 03/30/2023 (Approximate), Expires: 12/29/2023 documented as of this encounter Visit Diagnoses Diagnosis Choroidal malignant melanoma, left (H)- Primary documented in this encounter Care Teams Director Of Optimization Relationship Specialty Start Date End Date Molina Warren [facility] [address] [place], [place] [address] PCP - General Hematology & Oncology 09/02/21 Louise Mustafa, RN Specialty Statistics Teacher Hematology & Oncology 09/02/21 Radha Clark RN Specialty Statistics Teacher Hematology & Oncology 11/30/21 02/19/23 Emely Bauman MD [address] [place] [address] Hematology & Oncology 11/30/21 Emely Bauman MD [address] [place] [address] Assigned Cancer Care Provider 12/31/21 documented as of this encounter
--- OUTSIDE RECORDS SUMMARY | 2023-08-07 13:58 | XMS_ITS | Encounter Summary ---
Author Name Unknown Organization [facility] Address [address] [place] [address]. [place] [address] Care Team Providers Care Lead Programmer Analyst Name Role Phone Molina Warren MD Primary Care Provider [phone] Louise Mustafa RN Unavailable Radha Clark RN Unavailable Emely Bauman MD Unavailable [phone] Emely Bauman MD Unavailable Chio Wilson RN Unavailable Unavailable Encounter Details Date Type Department Care Team (Late st Contact Info) Description 04/07/2022 [facility] [address] [place] [phone] Emely Bauman MD [address] [place] [address] Social History Tobacco Use Types Packs/Day Years Used Date Smoking Tobacco: Never Smokeless Tobacco: Never Sex and Gender Information Value Date Recorded Sex Assigned at Female 08/22/2021 11:54 AM BOBBIN CLEANER Gender Identity Female 08/22/2021 11:54 AM BOBBIN CLEANER Sexual Orientation Straight 08/22/2021 11 :54 AM BOBBIN CLEANER documented as of this encounter Plan of Treatment Not on file documented as of this encounter Visit Diagnoses Not on filedocumented in this encounter Care Teams Lead Programmer Analyst Relationship Specialty Start Date End Date Molina Warren MD [facility] [address] [place], [place] [address] PCP - General Hematology & Oncology 09/02/21 Louise Mustafa, RN Specialty Floor Worker [place] Hematology & Oncology 09/02/21 Radha Clark RN Specialty Floor Worker [place] Hematology & Oncology 11/30/21 02/19/23 Emely Bauman MD [address] [place], [place] [address] Hematology & Oncology 11/30/21 Emely Bauman MD [address] [place] [address] Assigned Cancer Care Provider 12/31/21 Chio Wilson, LETITIA Specialty Floor Worker [place] Hematology & Oncology 03/06/23 documented as of this encounter
--- OUTSIDE RECORDS SUMMARY | 2023-08-07 13:59 | XMS_ITS | Encounter Summary ---
Author Name Unknown Organization [facility] Address [address] [place] [address]. [place] [address] Care Team Providers Care House Parent Name Role Phone Molina Warren MD Primary Care Provider [phone] Louise Mustafa RN Unavailable [phone] Molina Warren MD Unavailable [phone] Radha Clark RN Unavailable [phone] Emely Bauman MD Unavailable Emely Bauman MD Unavailable Chio Wilson RN Unavailable Unavailable Encounter Details Date Type Department Care Team (Late st Contact Info) Description 11/30/2021 My[facility] Medical Advice [address] [address] Molina Warren MD [facility] [address] [place] [phone] Social History Tobacco Use Types Packs/Day Years Used Date Smoking Tobacco: Never Smokeless Tobacco: Never Sex and Gender Information Value Date Recorded Sex Assigned at Female 08/22/2021 11:54 AM NET UI DEVELOPER Gender Identity Female 08/22/2021 11:54 AM NET UI DEVELOPER Sexual Orientation Straight 08/22/2021 11 :54 AM NET UI DEVELOPER documented as of this encounter Plan of Treatment Not on file documented as of this encounter Visit Diagnoses Not on filedocumented in this encounter Care Teams House Parent Relationship Specialty Start Date End Date Molina Warren MD [facility] [address] [place], [place] [address] PCP - General Hematology & Oncology 09/02/21 Louise Mustafa, RN Specialty Simonizer Hematology & Oncology 09/02/21 Molina Warren MD [facility] [address] [place] [address] Assigned Cancer Care Provider 09/18/21 12/30/21 Radha Clark RN Specialty Simon[place] Hematology & Oncology 11/30/21 02/19/23 Emely Bauman MD [address] [place] [id number] Hematology & Oncology 11/30/21 Emely Bauman MD [address] [place], [place] [address] Assigned Cancer Care Provider 12/31/21 Chio Wilson, LETITIA Specialty Simonizer Hematology & Oncology 03/06/23 documented as of this encounter
--- OUTSIDE RECORDS SUMMARY | 2023-08-07 13:59 | XMS_ITS | Encounter Summary ---
Author Name Unknown Organization [facility] Address [address] [place] [address]. [place] [address] Care Team Providers Care Ichthyologist Name Role Phone Molina Warren MD Primary Care Provider Louise Mustafa RN Unavailable [phone] Molina Warren MD Unavailable [phone] Radha Clark RN Unavailable [phone] Emely Bauman MD Unavailable [phone] Emely Bamuan MD Unavailable [phone] Reason for Visit * Reason Comments *-*INCOMING RECORDS*-* Encounter Details Date Type Department Care Team (Late st Contact Info) Description 08/22/2021 PRE VISIT [address] [address] Molina Wraren MD Physicians [address] [place] [phone] *-*INCOMING RECORDS*-* Social History Tobacco Use Types Packs/Day Years Used Date Smoking Tobacco: Never Smokeless Tobacco: Never Sex and Gender Information Value Date Recorded Sex Assigned at Female 08/22/2021 11:54 AM CERTIFIED MEDICAL RECORDS CODER Gender Identity Female 08/22/2021 11:54 AM CERTIFIED MEDICAL RECORDS CODER Sexual Orientation Straight 08/22/2021 11 :54 AM CERTIFIED MEDICAL RECORDS CODER COVID-19 Exposure Response Date Recorded In the last 10 days, have yo u been in contact with someone who was confirmed or suspected to have Coronavirus/COVID-19? No / Unsure 12/22/2021 12:34 PM CDT documented as of this encounter Progress Notes * Kaylyn Wren - 08/22/2021 11:59 PM CST RECORDS STATUS - ALL OTHER DIAGNOSIS RECORDS RECEIVED FROM: [facility] DATE RECEIVED: 08/22/2021 NOTES STATUS DETAILS OFFICE NOTE from referring provider Complete Epic referred by Ricardo Carrasquillo MD DISCHARGE SUMMARY from hospital DISCHARGE REPORT from the ER CLINICAL TRIAL TREATMENTS TO DATE LABS ANYTHING RELATED TO DIAGNOSIS Complete Labs last updated on 08/02/2021 in [facility] GEN[facility]OMIC TESTING TYPE: IMAGING (NEED IMAGES & REPORT) CT SCANS Complete- [facility] CT Abdomen Pelvis 08/02/2021 CT Chest MRI MAMMO Complete - [facility] ULTRASOUND PET Action Action Taken 08/04/2021 8:50AM KEB I called [facility] - they will push some mammos over to PACS I called pt Latrice - she has records including benign skin tag path reports at [facility] [place], [place] I called [facility] - I left a detailed vm requesting records. 08/04/2021 3:48pm KEB I faxed records from [facility] to HIM 8:11AM KEB I resolved imaging in PACS I called our internal file room to have some images resolved [phone] IFIED MEDICAL RECORDS CODER documented in this encounter Plan of Treatment Not on file documented as of this encounter Visit Diagnoses Not on filedocumented in this encounter Care Teams Ichthyologist Relationship Specialty Start Date End Date Molina Warren MD [facility] [address] [place] [address] PCP - General Hematology & Oncology 09/02/21 Louise Mustafa, RN Specialty Lubricating Engineer Hematology & Oncology 09/02/21 Molina Warren MD [facility] [address] [place] [address] Assigned Cancer Care Provider 09/18/21 12/30/21 Radha Clark RN Specialty Lubricating Engineer Hematology & Oncology 11/30/21 02/19/23 Emely Bauman MD [address] [place] [id number] Hematology & Oncology 11/30/21 Emely Bauman MD [address] [place] [address] Assigned Cancer Care Provider 12/31/21 documented as of this encounter
== END 2023-08-07 13:55 | disposition home or self-care (01) ==
LOC: INJ CL 13:55
PROVIDERS: PCP Family Medicine; Visit Provider Family Medicine
DX: M47.816 Spondylosis without myelopathy or radiculopathy, lumbar region (principal)
CPT/HCPCS: 64493; 64494; 64495; J0702; Q9966

== ENCOUNTER 2023-09-13 08:14 | Day surgery (SDC) | payer BC, SELFPAY ==
[2023-09-13] VITALS (24 sets, daily range): BP systolic 79–154; BP diastolic 58–89; PULSE 64–88; RESP 14–16; TEMP 36.1–37; O2SAT 92–99; BMI 41.7
[2023-09-13] MEDS: OXYCODONE (CR) 10 MG TAB.ER.12H PO (08:46)
[2023-09-13] MEDS: LACTATED RINGERS 1000 ML 1,000 ML 100 ML IV ×2 (08:46→13:27)
[2023-09-13] MEDS: CELECOXIB 200 MG CAPSULE PO (08:46)
[2023-09-13] MEDS: ACETAMINOPHEN 500 MG TABLET 1000 MG PO ×3 (08:46→23:42)
[2023-09-13] MEDS: SODIUM CHLORIDE 0.9 % (FLUSH) 10 ML SYRINGE IVF (08:47)
[2023-09-13] MEDS: fentaNYL 100 MCG/2 ML inj IVP (10:34)
[2023-09-13] MEDS: MIDAZOLAM HCL 1 MG/ML inj IVP (10:34)
--- NOTE | 2023-09-13 10:44 | SUR.PREOP ---
TIME?OUT:?1034 PT/Shandra DENNIS RN/Ramya URBANO MDA?VERIFICATION?OF?SURGICAL?SITE,?PROCEDURE,?AND?CONSENT OBTAINED?PRIOR?TO?INVASIVE?PROCEDURE.
[2023-09-13] MEDS: CEFAZOLIN 2 GM INJ IVP (11:32)
[2023-09-13] MEDS: TRANEXAMIC ACID 100 MG/ML INJ 1000 MG IV (11:33)
--- NOTE | 2023-09-13 13:01 | XR_ITS ---
Patient: MIKE NUNEZ Facility:?[facility] Patient ID:?[id number] Site Patient ID:?[id number]. Site :?[id number] Study:?XRay-Extremity Left 2V KNEE-09/13/2023 2:08:51 PM Ordering Physician:?DR. LAURENT Final Report: Indication: POST OP LEFT TOTAL KNEE ARTHOPLASTY Technique: Two views left knee Findings/Impression: Hardware from a left total knee arthroplasty is in satisfactory position. Bone alignment is normal. No sign of acute fracture. Postop changes are within normal limits. Dictated by Ramos Sears MD @ 09/14/2023 9:52:29 AM Signed by:?Ramos Sears MD @09/14/2023 9:52:29 AM (Electronic Signature)
--- NOTE | 2023-09-13 13:04 | PM.ORPRC ---
Procedure Note Date of procedure: 09/13/23 Procedure: PREOPERATIVE DIAGNOSIS: Left knee osteoarthritis POSTOPERATIVE DIAGNOSIS: Left knee osteoarthritis NAME OF OPERATION: Left total knee arthroplasty SURGEON: Teodoro Green MD PRODUCT S[employer]Y [employer] STANDARDS ENGINEER: Susy Hernandez PA-C ANESTHESIA: Spinal ESTIMATED BLOOD LOSS: 0 mL COMPLICATIONS: None SPECIMENS: None DRAINS: None PREOPERATIVE ANTIBIOTICS: Ancef 3 grams, antibiotic impregnated cement IMPLANTS: 1. J&J Attune # 5 posterior stabilized femur 2. # 5 fixed-bearing tibia, with a 14 mm x 50 mm cemented stem 3. # 5 posterior stabilized, 5 mm fixed-bearing polyethylene 4. 38 patella INDICATIONS: The patient is a 57-year-old with a longstanding history of severe, unrelenting left knee pain secondary to end-stage (grade IV) left knee osteoarthritis. Despite appropriate nonoperative management, including activity modification, anti-inflammatories, [id number] pain medication, bracing, physical therapy, and injections they continue to have pain and disability. Operative intervention was offered. The risks, benefits and expected outcomes were discussed in detail. These included but were not limited to: Infection, bleeding, injury to blood vessel or nerve, venous thromboembolism. All questions were answered to their satisfaction. Use of an assistant men's soccer coach was necessary throughout the case for patient positioning and safety, soft tissue retraction, and closure. A modifier 22 should be added to this case. The patient's weight of 132 kg with a BMI of 41.8 kg/meter squared made the dissection difficult and added time to the case. Additionally, because of these factors a stemmed tibial component was used to reduce the risk of aseptic loosening. This added extra cost to the case. PROCEDURE: Spinal anesthesia was administered. The patient was placed supine on the operating table. The assistant men's soccer coach made sure the patient was positioned appropriately. The lower extremity was prepped and draped in the usual sterile fashion. The limb was exsanguinated with the Luis bandage. The pneumatic tourniquet was inflated to 300 mmHg. A standard anterior incision was made with the knee in flexion. Subcutaneous dissection was sharply taken through fascial layer #1. Full-thickness medial and lateral flaps were elevated. The assistant men's soccer coach retracted the soft tissues and protected them throughout the case. A standard subvastus approach was made. The patella was everted. The infrapatellar fat pad was preserved. The menisci and cruciate ligaments were sharply d?brided. Marginal osteophytes were d?brided with the rongeur. The drill was used to penetrate the femoral canal. The canal was aspirated and irrigated with pulse lavage. The intramedullary femoral guide was placed for a 5-degree valgus cut, removing 10 mm off the distal femur. The saw was used to make the cut. Whitesides line and the trans epicondylar axis were marked. The femoral sizing guide was pinned onto the distal femur. Three degrees of external rotation nicely parallels the transepicondylar axis. Pins were placed for posterior referencing. The four-in-one cutting guide was pinned onto the distal femur. The anterior, posterior, and chamfer cuts were made. The assistant men's soccer coach protected the collateral ligaments. The box cutting guide was pinned. The box cuts were made. The boxed trial was placed and was an excellent fit. Drill holes for the lugs were made. Attention was then turned to the proximal tibia. The extramedullary tibial guide was placed for a neutral varus/valgus cut with 5 degrees of posterior slope, removing 2 mm based off the medial tibial surface. The assistant men's soccer coach protected the collateral ligaments and the neurovascular bundle. The saw was used to make the cut. Trial components were placed. The knee was nicely balanced in both flexion and extension. The trial components were removed. The tray was placed in appropriate rotation, parallel to our tibial cutting pins. It was pinned by the assistant men's soccer coach and the drill x2 was used. The stemmed tibial trial was placed. The punch was used. The tray was removed. The punch was used again. A bone plug was placed in the femoral canal. Attention was then turned to the patella. [place] patellar thickness was 21 mm. The lobster claw resection guide was used with the 7.5 mm сергей. The saw was used to make the cut. Drill holes were made by the assistant men's soccer coach. The trial was placed and was an excellent fit. Cancellous surfaces were irrigated with pulse lavage and thoroughly dried by the assistant men's soccer coach. We cemented the tibial component, then the femoral component. We impacted the 5 mm polyethylene onto the tibial tray. The knee was brought into full extension. We then cemented the patellar component. Excessive cement was removed. The cement was allowed to harden. The knee was taken through a range of motion and was found to be nicely balanced in both flexion and extension. The patella tracks centrally. The assistant men's soccer coach did a three minute dilute Betadine solution soak. The assistant men's soccer coach irrigated the wound with 3 liters of normal saline via pulse lavage. The assistant men's soccer coach reapproximated the extensor mechanism with #1 Vicryl in an interrupted [id number] fashion. The assistant men's soccer coach then ran the extensor mechanism with a #1 PDO Stratafix. The assistant men's soccer coach closed the subcutaneous tissues with a 3-0 Stratafix and the skin with a running 3-0 Stratafix in a subcuticular fashion. Glue was used to seal the skin. The assistant men's soccer coach placed a dry dressing, ROBBIE stocking, and Polar Care. Sponge and needle counts were correct x2. The patient tolerated the procedure well. There were no apparent complications. They were carefully transferred to the hospital bed and taken to the postanesthesia care unit in satisfactory condition. PLAN: The patient will be mobilized with physical therapy. Aspirin will be used for DVT prophylaxis. They will be discharged to home once medically appropriate.
--- NOTE | 2023-09-13 13:27 | W.ANESCHARGE ---
Anesthesia Charges Start Date/Time Anesthesia Start Date: 09/13/23 Anesthesia Start Time: 11:23 Stop Date/Time Anesthesia Stop Date: 09/13/23 Anesthesia Stop Time: 13:59
--- NOTE | 2023-09-13 13:28 | W.PM.NB ---
Nerve Block Nerve Block Time Seen by Provider: 10:38 Date Seen: 09/13/23 Type of block requested by surgeon for post-operative analgesia: adductor canal Side: left Time out performed: Yes Verification of patient name: Yes Verification of date of : Yes Site marking: site marked Name of person performing procedure: Naveen Continuous monitoring Was continuous monitoring of O2 sat, B/P, radiographer cardiac catheterization, recorded every 15 minutes?: Yes Procedure Checklist: sterile prep, needles and gloves Ultrasound guided. Images saved: Yes Medications given in 5ml increments after negative aspiration: Ropivicaine %: 0.5 mL: 20 Needle gauge: 20 Decadron (mg): 10 Precedex (mcg): 25 Patient tolerated procedure well: Yes Additional comments: Needle noted adjacent to nerve Block Charges Block Charge (with Pro Fee): Femoral Nerve Use of Ultrasound Machine for Block: Yes- US Guidance/pain block
--- NOTE | 2023-09-13 13:29 | W.PM.NB ---
Nerve Block Nerve Block Time Seen by Provider: 10:38 Date Seen: 09/13/23 Type of block requested by surgeon for post-operative analgesia: geniculars Side: left Time out performed: Yes Verification of patient name: Yes Verification of date of : Yes Site marking: site marked Name of person performing procedure: Naveen Continuous monitoring Was continuous monitoring of O2 sat, B/P, substation electrician supervisor, recorded every 15 minutes?: Yes Procedure Checklist: sterile prep, needles and gloves Medications given in 5ml increments after negative aspiration: Ropivicaine %: 0.5 mL: 9 Needle gauge: 25 Patient tolerated procedure well: Yes Block Charges Block Charge (with Pro Fee): Genicular Nerve Block Use of Ultrasound Machine for Block: No
[2023-09-13] MEDS: ONDANSETRON 2 MG/ML inj 4 MG IVP (14:08)
--- NOTE | 2023-09-13 14:23 | W.ANESCHARGE ---
Anesthesia Charges Start Date/Time Anesthesia Start Date: 09/13/23 Anesthesia Start Time: 11:23 Stop Date/Time Anesthesia Stop Date: 09/13/23 Anesthesia Stop Time: 13:59
[2023-09-13] MEDS: OXYCODONE 5 MG TABLET PO ×3 (17:02→23:42)
[2023-09-13] MEDS: CEFAZOLIN 3 GM in 0.9 % SODIUM CHLORIDE Mini-bag 100 ML IVPB (18:13)
--- NOTE | 2023-09-13 18:34 | PM.IMCN1 ---
Date of Consult Patient: [facility] Patient Consult date: 09/13/23 Requesting Physician: Orthopedics Primary Care Provider: Moon Lyon MD Consult Narrative Narrative: Latrice Thomas is a 57 year old female admitted to the hospital for left total knee arthroplasty. Procedure performed by Dr. Green. No complications. Immediately postoperatively she was chilled and nauseated but that has resolved. She is having some knee pain but it is well managed so far. Previous knee arthroplasty a year ago was associated with difficulty managing pain. Currently she reports doing much better than she did at that time. She reports she was feeling well earlier today. No recent illness or injury. She had a preop physical examination which did not identify any perioperative concerns. 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 MRI obtained about a week ago shows probable metastatic disease in the liver. Review of Systems Narrative: Negative except as noted above [facility] Medical History (Updated 09/13/23 @ 18:45 by Prakash Davis MD) Skin cancer (melanoma) ?C43.9 - Malignant melanoma of skin, unspecified (ICD-10) Anxiety ?F41.9 - Anxiety disorder, unspecified (ICD-10) Insomnia ?G47.00 - Insomnia, unspecified (ICD-10) Choroid melanoma of left eye ?C69.32 - Malignant neoplasm of left choroid (ICD-10) GERD (gastroesophageal reflux disease) ?K21.9 - Gastro-esophageal reflux disease without esophagitis (ICD-10) Depression ?F32.A - Depression, unspecified (ICD-10) Elevated cholesterol ?E78.00 - Pure hypercholesterolemia, unspecified (ICD-10) Hypothyroid ?E03.9 - Hypothyroidism, unspecified (ICD-10) Surgical History (Updated 09/13/23 @ 18:43 by Praksah Davis MD) S/P total knee arthroplasty ?Z96.659 - Presence of unspecified artificial knee joint (ICD-10) S/P trigger finger release (~2017) ?Z98.890 - Other specified postprocedural states (ICD-10) Status post total right knee replacement (09/14/22) ?Z96.651 - Presence of right artificial knee joint (ICD-10) History of knee replacement ?Z96.659 - Presence of unspecified artificial knee joint (ICD-10) History of eye removal (10/03/21) ?Z90.01 - Acquired absence of eye (ICD-10) History of hysterectomy (~2011) ?Z90.710 - Acquired absence of both cervix and uterus (ICD-10) History of cholecystectomy (~2007) ?Z90.49 - Acquired absence of other specified parts of digestive tract (ICD-10) Hx of appendectomy (1998) ?Z90.49 - Acquired absence of other specified parts of digestive tract (ICD-10) Family History Mother Myocardial infarction Father FH: kidney cancer Brother Hyperlipidemia FHx: total knee replacement Social History Narrative: Lives with Everett in [place]. Not currently working outside the home. Nonsmoker, no concerning alcohol use. What is your current living situation?: I presently have a place to live In the past 12 months, utilities in danger of being shut off: no In past 12 months, lack of transportation kept you from medical appts, meetings, work, or getting things needed for daily living: no In the past 12 mos, have been you worried that your food would run out before you had money to buy more?: never true In the past 12 mos, the food you bought just didn't last and you didn't have money to buy more?: never true Smoking Status: Never smoker Do you use any of these nicotine containing products: None Second hand tobacco smoke exposure: No How often do you have a drink containing alcohol: never AUDIT-C Alcohol total score: 0 Non-prescribed substance use: denies use Caffeine: No Are you now , , , , never or living with a partner: Social isolation score (0-1 are the most socially isolated patients): 1 How often does anyone, including family, friends and others, physically hurt you: never How often does anyone, including family, friends and others, insult or talk down to you: never How often does anyone, including family, friends and others, threaten you with harm: never How often does anyone, including family, friends and others, scream or curse at you: never service: No Meds Home Medications and Allergies Home Medications Medication Instructions Recorded Confirmed Type B-complex with vitamin C 1 cap PO DAILY 02/13/22 09/13/23 History multivitamin 1 tab PO DAILY 02/13/22 09/13/23 History zinc gluconate 100 mg tablet 100 mg PO DAILY 02/13/22 09/13/23 History citalopram 20 mg tablet 20 mg PO HS 03/22/22 09/13/23 History propranolol 60 mg capsule,24 60 mg PO DAILY 05/15/22 09/13/23 History hr,extended release cholecalciferol (vitamin D3) 10 10 mcg PO DAILY 07/28/22 09/13/23 History mcg (400 unit) capsule esomeprazole magnesium 40 mg 40 mg PO DAILY 07/28/22 09/13/23 History capsule,delayed release (Nexium) ezetimibe 10 mg tablet (Zetia) 10 mg PO DAILY 07/28/22 09/13/23 History zolpidem 6.25 mg tablet,extended 6.25 mg PO HS 07/28/22 09/13/23 History release,multiphase (Ambien CR) bupropion HCl 150 mg tablet,12 hr 150 - 300 mg PO Q12H 09/15/22 09/13/23 History sustained-release atorvastatin 40 mg tablet (Lipitor) 40 mg PO HS 08/13/23 09/13/23 History baclofen 5 mg tablet 5 mg PO BID PRN 08/13/23 09/13/23 History levothyroxine 150 mcg tablet 150 mcg PO DAILY 08/13/23 09/13/23 History (Synthroid) calcium carbonate-magnesium oxide 1 tab PO DAILY 09/12/23 09/13/23 History 250 mg-155 mg tablet Allergies Allergy/AdvReac Type Severity Reaction Status Date / Time pitavastatin Allergy Verified 09/13/23 08:36 propoxyphene Allergy Verified 09/13/23 08:36 [From Darvocet-N] rosuvastatin Allergy Verified 09/13/23 08:36 Sulfa (Sulfonamide Allergy Verified 09/13/23 08:36 Antibiotics) Exam Narrative: Exam Narrative: She is alert and appears in no distress. She gives her own history. Accompanied by her . Prosthetic left eye. Oropharynx normal. Neck is supple without mass or adenopathy. Respirations are clear to auscultation. Cardiovascular: S1, S2, regular rate and rhythm. Abdomen is soft without tenderness or mass. Lower extremities with intact pedal pulses. No significant edema. Intact strength and sensation in both feet and ankles. Const: Vital Signs, click to edit/add: Vital Signs - 24 hr 09/13/23 09:17 09/13/23 10:32 09/13/23 10:35 Temperature 98.2 F Pulse Rate 76 66 67 Respiratory Rate 16 16 16 Blood Pressure 133/89 122/79 126/76 Pulse Oximetry 97 99 99 Oxygen Delivery Me thod Room Air Nasal Cannula Nasal Cannula Oxygen Flow Rate 2 2 09/13/23 13:55 09/13/23 14:00 09/13/23 14:06 Temperature 97.0 F L Pulse Rate 64 64 65 Respiratory Rate 16 16 14 Blood Pressure 92/67 100/65 96/76 Pulse Oximetry 92 94 93 Oxygen Delivery Me thod Room Air Room Air Room Air Oxygen Flow Rate 09/13/23 14:10 09/13/23 14:15 09/13/23 14:22 Temperature Pulse Rate 65 68 66 Respiratory Rate 16 16 16 Blood Pressure 79/58 L 110/79 118/70 Pulse Oximetry 93 94 95 Oxygen Delivery Me thod Room Air Room Air Room Air Oxygen Flow Rate 09/13/23 14:24 09/13/23 14:31 09/13/23 14:45 Temperature 97.5 F L 97.8 F 97.8 F Pulse Rate 67 71 67 Respiratory Rate 16 16 14 Blood Pressure 117/64 136/81 133/85 Pulse Oximetry 96 94 97 Oxygen Delivery Me thod Room Air Room Air Room Air Oxygen Flow Rate 09/13/23 15:00 09/13/23 15:15 09/13/23 15:30 Temperature 97.8 F 98 F 98.2 F Pulse Rate 66 65 66 Respiratory Rate 14 16 16 Blood Pressure 132/83 154/80 H 144/86 H Pulse Oximetry 97 97 97 Oxygen Delivery Me thod Room Air Room Air Room Air Oxygen Flow Rate 09/13/23 15:53 09/13/23 16:00 09/13/23 16:30 Temperature 97.5 F L 97.2 F L Pulse Rate 69 69 Respiratory Rate 16 14 16 Blood Pressure 122/85 137/85 Pulse Oximetry 93 95 Oxygen Delivery Me thod Room Air Room Air Oxygen Flow Rate 09/13/23 17:30 Temperature 98 F Pulse Rate 74 Respiratory Rate 16 Blood Pressure 130/84 Pulse Oximetry 95 Oxygen Delivery Me thod Room Air Oxygen Flow Rate Documenting provider has reviewed patient's vital signs: yes Assessment and Plan Assessment and plan (1) S/P total knee arthroplasty: Problem comment: 09/13/2023. Dr. Green. Left side. No complications. Status: Acute (2) Choroid melanoma of left eye: Problem comment: Enucleation left eye 2021. Probable metastatic disease in liver August 2023 MRI Status: Acute (3) Depression: Problem comment: Resume home medications Status: Acute (4) GERD (gastroesophageal reflux disease): Problem comment: Resume home medications Status: Acute Plan Patient is admitted to the hospital for left total knee arthroplasty. At this point doing fairly well. Anticipate discharge to home tomorrow. Provide routine postoperative care including pain management and therapy. Total Time Spent Total Time Spent: Total time spent today is 35 minutes, 25 minutes in coordination care and discussing with patient other providers ongoing evaluation management of knee arthroplasty and rehab
--- NOTE | 2023-09-13 19:01 | PC.NURSE ---
End of Shift: Patient pleasant and cooperative. Patient vitally stable, lungs clear, BS WNL, LR running at 75. Patient rates pain at most 8/10, lowest 4/10, 10mg of oxy given x2. Patient 1 assist, walker, gb. Patient urinated 400ml in toilet. Patient tolerating regular diet. Left knee dressing C/D/I. Patient is up in chair.
[2023-09-13] MEDS: SENNOSIDES 1 TAB TABLET 2 TAB PO (21:20)
[2023-09-13] MEDS: ASPIRIN 81 MG TABLET EC PO (21:20)
[2023-09-13] MEDS: ZOLPIDEM 5 MG TABLET PO (21:20)
[2023-09-13] MEDS: ATORVASTATIN CALCIUM 40 MG TABLET PO (21:20)
[2023-09-14] MEDS: CEFAZOLIN 3 GM in 0.9 % SODIUM CHLORIDE Mini-bag 100 ML IVPB (02:18)
[2023-09-14 02:23] VITALS: BP 134/88; PULSE 80; RESP 16; TEMP 37; O2SAT 94
--- NOTE | 2023-09-14 05:04 | PC.NURSE ---
Shift note: Pt is doing well with A1, walker and GB. Alert and oriented. Pain level was rated between 3 and 6. Ice pack applied to the incision site. 1x PRN medication requested at 2330. Pt is pleasant and cooperate with treatment and care.Dressing appeared clean and dry. Pt was concern about the her Bupropion being cancelled. called to explain to patient at 2030.
[2023-09-14] MEDS: OMEPRAZOLE 20 MG CAPSULE DR 40 MG PO (06:36)
[2023-09-14] MEDS: ACETAMINOPHEN 500 MG TABLET 1000 MG PO (06:36)
[2023-09-14] MEDS: LEVOTHYROXINE 75 MCG TABLET 150 MCG PO (06:36)
[2023-09-14 06:49] LABS: Basophils Percent Auto 0.1 % (0.0-3.0); Hematocrit 37.4 % (33.0-51.0); Hemoglobin* 12.7 gm/dL (12.0-16.0); Immature Granulocytes Pct Auto 0.1 %; Lymphocytes Percent Auto 8.3 % (20-44); Mean Corpuscular HGB Conc 34 gm/dL (32-36); Mean Corpuscular Hemoglobin 31 pg (26-34); Mean Corpuscular Volume 91 fL (80-100); Monocytes Percent Auto 8.5 % (0.0-11.0); Platelet Count* 325 K/uL (140-440); RDW Coefficient of Variation % 13.6 % (11.5-15.5); Red Blood Count 4.11 m/uL (4.00-5.20); White Blood Count* 13.73 K/uL (4.50-11.00)
[2023-09-14 06:59] LABS: Slide Review Reflex No
[2023-09-14 07:00] VITALS: BP 155/99; PULSE 93; RESP 16; TEMP 36.7; O2SAT 99
[2023-09-14 07:00] LABS: Sodium* 138 mmol/L (135-149)
[2023-09-14 07:01] LABS: Potassium* 3.6 mmol/L (3.6-5.1)
[2023-09-14 07:03] LABS: Creatinine* 0.5 mg/dL (0.5-1.5); Est. Creatinine Clearance* 131.01; Estimated Glomerular Filt Rate 108 ml/min; INR 1.01 (0.91-1.10); Prothrombin Time 13.9 Seconds
[2023-09-14 07:04] LABS: Blood Urea Nitrogen* 16 mg/dL (7-30)
[2023-09-14] MEDS: ASPIRIN 81 MG TABLET EC PO (09:10)
[2023-09-14] MEDS: EZETIMIBE 10 MG TABLET PO (09:10)
[2023-09-14] MEDS: SENNOSIDES 1 TAB TABLET 2 TAB PO (09:10)
--- NOTE | 2023-09-14 09:21 | PM.ORPN ---
Subjective Subjective Time Seen by Provider: 07:45 Date Seen: 09/14/23 Principal diagnosis: Status post left knee replacement Interval history: Latrice is doing very well this morning. She is happy with her knee replacement thus far and is able to easily straight leg raise which she was not able to do after her left knee replacement a year ago. She is also ambulating much better this time around. She will discharge to home today. Ortho Exam Narrative Exam Narrative: Alert and oriented x3. Patient is in no acute distress. Converses without labored breathing. Hearing is grossly intact. Ambulates with a walker. Examination of the left lower extremity shows the dressing is intact. Minimal swelling. Minimal effusion. CMS intact left lower extremity. Strong quad. Bilateral calves are soft and nontender. Able to straight leg raise. Const Vital Signs, click to edit/add: Vital Signs - 24 hr 09/13/23 10:32 09/13/23 10:35 09/13/23 13:55 Temperature 97.0 F L Pulse Rate 66 67 64 Pulse Rate [Left Pulse Oximeter] Respiratory Rate 16 16 16 Blood Pressure 122/79 126/76 92/67 Blood Pressure [Right Arm] Pulse Oximetry 99 99 92 Oxygen Delivery Method Nasal Cannula Nasal Cannula Room Air Oxygen Flow Rate 2 2 09/13/23 14:00 09/13/23 14:06 09/13/23 14:10 Temperature Pulse Rate 64 65 65 Pulse Rate [Left Pulse Oximeter] Respiratory Rate 16 14 16 Blood Pressure 100/65 96/76 79/58 L Blood Pressure [Right Arm] Pulse Oximetry 94 93 93 Oxygen Delivery Method Room Air Room Air Room Air Oxygen Flow Rate 09/13/23 14:15 09/13/23 14:22 09/13/23 14:24 Temperature 97.5 F L Pulse Rate 68 66 67 Pulse Rate [Left Pulse Oximeter] Respiratory Rate 16 16 16 Blood Pressure 110/79 118/70 117/64 Blood Pressure [Right Arm] Pulse Oximetry 94 95 96 Oxygen Delivery Method Room Air Room Air Room Air Oxygen Flow Rate 09/13/23 14:31 09/13/23 14:45 09/13/23 15:00 Temperature 97.8 F 97.8 F 97.8 F Pulse Rate 71 67 66 Pulse Rate [Left Pulse Oximeter] Respiratory Rate 16 14 14 Blood Pressure 136/81 133/85 132/83 Blood Pressure [Right Arm] Pulse Oximetry 94 97 97 Oxygen Delivery Method Room Air Room Air Room Air Oxygen Flow Rate 09/13/23 15:15 09/13/23 15:30 09/13/23 15:53 Temperature 98 F 98.2 F Pulse Rate 65 66 Pulse Rate [Left Pulse Oximeter] Respiratory Rate 16 16 16 Blood Pressure 154/80 H 144/86 H Blood Pressure [Right Arm] Pulse Oximetry 97 97 Oxygen Delivery Method Room Air Room Air Oxygen Flow Rate 09/13/23 16:00 09/13/23 16:30 09/13/23 17:30 Temperature 97.5 F L 97.2 F L 98 F Pulse Rate 69 69 74 Pulse Rate [Left Pulse Oximeter] Respiratory Rate 14 16 16 Blood Pressure 122/85 137/85 130/84 Blood Pressure [Right Arm] Pulse Oximetry 93 95 95 Oxygen Delivery Method Room Air Room Air Room Air Oxygen Flow Rate 09/13/23 18:30 09/13/23 19:30 09/13/23 20:30 Temperature 98.1 F 97.8 F 97.8 F Pulse Rate 82 83 88 Pulse Rate [Left Pulse Oximeter] Respiratory Rate 16 16 16 Blood Pressure 126/79 112/81 127/69 Blood Pressure [Right Arm] Pulse Oximetry 93 97 97 Oxygen Delivery Method Room Air Room Air Room Air Oxygen Flow Rate 09/13/23 23:00 09/13/23 23:44 09/14/23 02:23 Temperature 98.6 F 98.6 F Pulse Rate Pulse Rate [Left Pulse Oximeter] 74 80 Respiratory Rate 16 16 16 Blood Pressure Blood Pressure [Right Arm] 121/75 134/88 Pulse Oximetry 97 94 Oxygen Delivery Method Room Air Room Air Oxygen Flow Rate 09/14/23 07:00 Temperature 98.0 F Pulse Rate Pulse Rate [Left Pulse Oximeter] 93 Respiratory Rate 16 Blood Pressure Blood Pressure [Right Arm] 155/99 H Pulse Oximetry 99 Oxygen Delivery Method Room Air Oxygen Flow Rate Assessment and Plan Assessment and plan (1) Status post left knee replacement: Problem details: 09/13/2023 Status: Acute Assessment and Plan: Plan for discharge is today to home if they meet discharge criteria. DVT prophylaxis includes aspirin 81 mg twice daily x1 month, Paco stockings x1 month may remove for 1 hr per day, frequent ambulation Remove dressing in 1 week. Observe wound and phone Orthopedics with any questions or concerns Return to clinic in 1 week for a wound check Return to clinic in 6 weeks with surgeon Minimize narcotic use. Wean off and discontinue soon as possible. Activities as tolerated. No strenuous activity. Outpatient physical therapy as scheduled. Ice and elevate the operative extremity. No restriction on ice. She was discharged last year after right knee replacement with ondansetron for nausea. This was prescribed once again per her request, however I do not want her to take it with citalopram as there is an interaction that could cause QT issues. She is made aware of this. She will likely not need the medication and does not need to pick it up at the pharmacy if it is not needed. She has Tylenol at home.
[2023-09-14] MEDS: OXYCODONE 5 MG TABLET PO (10:28)
--- NOTE | 2023-09-14 12:22 | PC.NURSE ---
Discharge Note: The patient discharged home with all of her belongings with her this morning. The patient reports moderate pain in her R knee. Ambulates well SBA w/GB and a walker. No nausea or vomiting. Dressing to knee is CDI no drainage noted. Iv removed. Zoila DONG BSN
== END 2023-09-14 11:25 | disposition home or self-care (01) ==
LOC: OR 08:15 → MEDSURG 08:18
PROVIDERS: PCP Family Medicine; Visit Provider Orthopaedic Surgery
PROC: (CPT 27447; principal; 2023-09-13 09:45)
DX: M17.12 Unilateral primary osteoarthritis, left knee (principal); G89.18 Other acute postprocedural pain; C69.32 Malignant neoplasm of left choroid; K21.9 Gastro-esophageal reflux disease without esophagitis; F32.A Depression, unspecified; F41.9 Anxiety disorder, unspecified
CPT/HCPCS: 27447; 01402; 36415; 64447; 64454; 73560; 76942; 82565; 84132; 84295; 84520; 85025; 85610; 97110; 97116; 97161; 97165; 97530; 97535; A9270; C1776; J0690; J1100; J2250; J2405; J2704; J2795; J3010; J7120

== ENCOUNTER 2023-11-16 09:48 | Outpatient (CLI) | payer BC, SELFPAY ==
--- OUTSIDE RECORDS SUMMARY | 2023-11-16 09:50 | XMS_ITS | Encounter Summary ---
Author Organization [place] Address [facility] [place] [address] Care Team Providers Care Food Service Attendant Name Role Phone Molina Warren MD Primary Care Provider [phone] Louise Mustafa RN Unavailable [phone] Radha Clark RN Unavailable [phone] Emely Bauman MD Unavailable Unava ilable Emely Bauman MD Unavailable Unava ilable Chio Wilson RN Unavailable Unavailable Encounter Details Date Type Department Care Team (Late st Contact Info) Description 08/08/2022 [facility] [place] Medical Advice [facility] [address] [place] [id number] Emely Bauman MD Social History Tobacco Use Types Packs/Day Years Used Date Smoking Tobacco: Never Smokeless Tobacco: Never Sex and Gender Information Value Date Recorded Sex Assigned at Female 08/22/2021 11:54 AM CITY CONSTABLE Gender Identity Female 08/22/2021 11:54 AM CITY CONSTABLE Sexual Orientation Straight 08/22/2021 11 :54 AM CITY CONSTABLE documented as of this encounter Plan of Treatment Not on file documented as of this encounter Visit Diagnoses Not on filedocumented in this encounter Care Teams Food Service Attendant Relationship Specialty Start Date End Date Molina Warren MD [facility] [address] [place] [address] PCP - General Hematology & Oncology 09/02/21 Louise Mustafa, RN Specialty Blueprint Maker Hematology & Oncology 09/02/21 Radha Clark RN Specialty Blueprint Maker Hematology & Oncology 11/30/21 02/19/23 Emely Buaman MD Hematology & Oncology 11/30/21 Emely Bauman MD Assigned Cancer Care Provider 12/31/21 Chio Wilson, LETITIA Specialty Blueprint Maker Hematology & Oncology 03/06/23 10/23/23 documented as of this encounter
--- OUTSIDE RECORDS SUMMARY | 2023-11-16 09:50 | XMS_ITS | Clinical Summary ---
Author Organization [place] Address [address] [place] [address] Care Team Providers Care Sewage Screen Operator Name Role Phone Molina Warren MD Primary Care Provider [phone] Louise Mustafa RN Unavailable [phone] Emely Bauman MD Unavailable Unava ilable Emely Bauman MD Unavailable Unava ilable Allergies Active Allergy Reactions Criticality Noted Date Comments Kdc:Red Dye+Acetaminophen+Propoxyphene Nausea 05/04/2006 Sulfa Antibiotics Nausea and Vomiting 6 Sulphasomidine Nausea and Vomiting 08/22/2021 Medications Medication Sig Dispensed Refills Start Date End Date Status baclofen (LIORESAL) 10 MG tablet Take 10 mg by mouth 07/22/2021 Active buPROPion (WELLBUTRIN SR) 150 MG 12 hr tablet 2 tabs in the morning, 1 tab in the evening 07/13/2021 Active cyclobenzaprine (FLEXERIL) 10 MG tablet Take 10 mg by mouth 07/22/2021 Active esomeprazole (NEXIUM) [address] capsule Take 80 mg by mouth 07/13/2021 Active meloxicam (MOBIC) 15 MG tablet Take 1 tablet daily as needed for pain 07/19/2021 Active nitroGLYcerin (NITRO-BID) 2 % OINT ointment Place 0.25 g rectally 07/13/2021 Active zolpidem ER (AMBIEN CR) 6.25 MG CR tablet Take 6.25 mg by mouth 07/13/2021 Active scopolamine (TRANSDERM) 1 MG/3DAYS [address] 1 patch onto the skin 07/13/2021 Active nystatin (MYCOSTATIN) 623511 UNIT/GM external powder Apply 1 strip topically 07/18/2021 Active citalopram (CELEXA) 20 MG tablet Take 1 tablet (20 mg) by mouth 02/17/2022 Active ccxsbldy-rcwepjqup-b examethasone (MAXITROL) 3.5-66508-1.1 SUSP ophthalmic susp INSTILL 1 DROP INTO THE AFFECTED EYE FOUR TIMES DAILY 02/06/2022 Active propranolol ER (INDERAL LA) 60 [...] Encounters Date Type Department Care Team Description 10/22/2023 [facility] Medical Advice [facility] Interventional Radiology [address] [place] [address] Kaylyn Kiran RN from Last 3 Months Immunizations Name Administration [...] Passive Smoke Exposure: Never Smokeless Tobacco: Never PHQ-2 Answer Date Recorded PHQ-2 Score 0 07/06/2023 Adolescent Education Answer Date Record ed Getting School Help Needed Not on file 03/17 Sex and Gender Information Value Date Recorded Sex Assigned at Female 08/22/2021 11:54 AM SPAGHETTI MACHINE OPERATOR Gender Identity Female 08/22/2021 11:54 AM SPAGHETTI MACHINE OPERATOR Sexual Orientation Straight 08/22/2021 11 :54 AM SPAGHETTI MACHINE OPERATOR Last Filed Vital Signs Vital Sign Reading Time Taken Comments Blood Pressure 159/97 12/22/2021 1:33 PM CDT Pulse 81 12/22/2021 1:33 PM CDT Temperature 36.7 ??C (98 ??F) 12/22/2021 1:33 PM CDT Respiratory Rate 16 12/22/2021 1:33 PM CDT Oxygen Saturation 99% 12/22/2021 1:33 PM CDT Inhaled Oxygen Concentration - - Weight 120.2 kg (265 lb) 07/06/2023 1:29 PM SPAGHETTI MACHINE OPERATOR Height 177.8 cm (5' 10) 07/06/2023 1:29 PM SPAGHETTI MACHINE OPERATOR Body Mass Index 38.02 07/06/2023 1:29 PM SPAGHETTI MACHINE OPERATOR Plan of Treatment Health Maintenance Due Date Last Done Comments ADVANCE CARE PLANNING 1965 ANNUAL REVIEW OF HM ORDERS 1963 CT COLONOGRAPHY 1963 DEPRESSION ACTION PLAN 1963 FIT 1963 FLEX SIG 1963 LIPID 1963 PHQ-9 1963 sDNA (Cologuard) 1963 HIV SCREENING 10/27/1978 HEPATITIS C SCREENING 10/27/1981 PAP 10/27/1984 COVID-19 Vaccine (2022-24 season) 2023 08/29/2023, 03/16/2023, 05/26/2022, Additional history exists RSV VACCINE ( & 60+) (1 - 1-dose 60+ series) 2023 YEARLY PREVENTIVE VISIT 07/20/2024 07/20/19 24, 07/17/2022, 07/13/2021, Additional history exists GLUCOSE 12/22/2024 12/22/2021 MAMMO SCREENING 07/20/2025 07/20/2023, 06/26, 07/17/2022, Additional history exists COLONOSCOPY 01/11/2032 01/10/2022 COLORECTAL CANCER SCREENING 01/11/2032 DTAP/TDAP/TD IMMUNIZATION (5 - Td or Tdap) 07/17/2032 07/17/2022, 06/03/2012, 03/26/2003, Additional history exists ZOSTER IMMUNIZATION Completed 07/05/2018, 8 Pneumococcal Vaccine: Pediatrics (0 to 5 Years) and At-Risk Patients (6 to 64 Years) Completed 03/10/2022 INFLUENZA VACCINE Completed 03/16/2023, , 03/09/2021, Additional [...] on patient's age to complete this topic Procedures Procedure Name Priority Date/Time Associated Diagnosis Comments MA SCREENING BILATERAL W/ DARIELA Routine 07/20/2023 10:54 AM SPAGHETTI MACHINE OPERATOR COMPREHENSIVE METABOLIC PANEL Routine 12/22/2021 1:41 PM CDT Choroidal malignant melanoma, left (H) from Last 3 Months or Most Recently Relevant to Health Maintenance Results * Comprehensive metabolic panel (12/22/2021 1:41 PM CDT) Sodium 139 133 - 144 mmol/L 12/22/2021 2:21 PM CDT [facility] Potassium 3.8 3.4 - 5.3 mmol/L 12/22/2021 2:21 PM CDT [facility] Chloride 104 94 - 109 mmol/L 12/22/2021 2:21 PM CDT [facility] Carbon Dioxide (CO2) 28 20 - 32 mmol/L 12/22/2021 2:21 PM CDT [facility] Anion Gap 7 3 - 14 mmol/L 12/22/2021 2:21 PM CDT [facility] Urea Nitrogen 17 7 - 30 mg/dL 12/22/2021 2:21 PM CDT [facility] Creatinine 0.84 0.52 - 1.04 mg/dL 12/22/2021 2:21 PM CDT [facility] Calcium 9.1 8.5 - 10.1 mg/dL 12/22/2021 2:21 PM CDT [facility] Glucose 94 70 - 99 mg/dL 12/22/2021 2:21 PM CDT [facility] Alkaline Phosphatase 82 40 - 150 U/L 12/22/2021 2:21 PM CDT [facility] AST 19 0 - 45 U/L 12/22/2021 2:21 PM CDT [facility] ALT 35 0 - 50 U/L 12/22/2021 2:21 PM CDT [facility] Protein Total 7.0 6.8 - 8.8 g/dL 12/22/2021 2:21 PM CDT [facility] Albumin 3.6 3.4 - 5.0 g/dL 12/22/2021 2:21 PM CDT [facility] Bilirubin Total 0.5 0.2 - 1.3 mg/dL 12/22/2021 2:21 PM CDT [facility] GFR Estimate 80 >60 mL/min/1.7 3m2 12/22/2021 2:21 PM CDT [facility] Comment:Effective May 262020 eGFRcr in adults is calculated using the 2020 CKD-EPI creatinine equation which includes age and gender (Eric et al., NEJ, DOI: 10.1056/HAXDqu0672071) Blood STRUCTURE OF RIGHT UPPER LIMB / Unknown Venipuncture / Unknown 12/22/2021 1:41 PM CDT 12/22/2021 1:51 PM CDT Emely Levi MD LAB - BLOOD OR DERABLES [facility] - [address] 1[address] [place] [address] from Last 3 Months or Most Recently Relevant to Health Maintenance Care Teams Sewage Screen Operator Relationship Specialty Start Date End Date Molina Warren MD [facility] [address] [place] [address] PCP - General Hematology & Oncology 09/02/21 Louise Mustafa, RN Specialty Marketing Campaign Analyst Hematology & Oncology 09/02/21 Emely Bauman MD Hematology & Oncology 11/30/21 Emely Bauman MD Assigned Cancer Care Provider 12/31/21
--- OUTSIDE RECORDS SUMMARY | 2023-11-16 09:50 | XMS_ITS | Encounter Summary ---
Author Organization [place] Address [facility] [place] [address] Care Team Providers Care Weed Cooking Operator Name Role Phone Molina Warren MD Primary Care Provider Louise Mustafa RN Unavailable [phone] Emely Bauman MD Unavailable Unava ilable Emely Bauman MD Unavailable Unava ilable Chio Wilson RN Unavailable Unavailable Encounter Details Date Type Department Care Team (Late st Contact Info) Description 03/30/2023 [facility] [place] [facility] [address] [place] [address] Chio Wilson, LETITIA Social History Tobacco Use Types Packs/Day Years Used Date Smoking Tobacco: Never Smokeless Tobacco: Never Adolescent Education Answer Date Record ed Getting School Help Needed Not on file 03/17 Sex and Gender Information Value Date Recorded Sex Assigned at Female 08/22/2021 11:54 AM PHOTOGRAPH INSPECTOR Gender Identity Female 08/22/2021 11:54 AM PHOTOGRAPH INSPECTOR Sexual Orientation Straight 08/22/2021 11 :54 AM PHOTOGRAPH INSPECTOR documented as of this encounter Plan of Treatment Not on file documented as of this encounter Visit Diagnoses Not on filedocumented in this encounter Care Teams Weed Cooking Operator Relationship Specialty Start Date End Date Molina Warren MD [facility] [address] [place] [address] PCP - General Hematology & Oncology 09/02/21 Louise Mustafa, RN Specialty Information Management Manager Hematology & Oncology 09/02/21 Emely Bauman MD Hematology & Oncology 11/30/21 Emely Bauman MD Assigned Cancer Care Provider 12/31/21 Chio Wilson RN Specialty Information Management Manager Hematology & Oncology 03/06/23 10/23/23 documented as of this encounter
--- OUTSIDE RECORDS SUMMARY | 2023-11-16 09:50 | XMS_ITS | Encounter Summary ---
Author Organization [place] [address] Address [facility] [place] [address] Care Team Providers Care Dragline Engineer Name Role Phone Molina Warren MD Primary Care Provider [phone] Louise Mustafa RN Unavailable [phone] Radha Clark RN Unavailable [phone] Emely Bauman MD Unavailable Unava ilable Emely Bauman MD Unavailable Unava ilable Chio Wilson RN Unavailable Unavailable Encounter Details Date Type Department Care Team (Late st Contact Info) Description 09/05/2022 [facility] [place] Medical Advice [facility] [address] [place] [phone] Emely Bauman MD Social History Tobacco Use Types Packs/Day Years Used Date Smoking Tobacco: Never Smokeless Tobacco: Never Sex and Gender Information Value Date Recorded Sex Assigned at Female 08/22/2021 11:54 AM MACHINE BRUSH MAKER Gender Identity Female 08/22/2021 11:54 AM MACHINE BRUSH MAKER Sexual Orientation Straight 08/22/2021 11 :54 AM MACHINE BRUSH MAKER documented as of this encounter Plan of Treatment Not on file documented as of this encounter Visit Diagnoses Not on filedocumented in this encounter Care Teams Dragline Engineer Relationship Specialty Start Date End Date Molina Warren MD [facility] [address] [place] [address] PCP - General Hematology & Oncology 09/02/21 Louise Mustafa, RN Specialty Wireless Team Member Hematology & Oncology 09/02/21 Radha Clark RN Specialty Wireless Team Member Hematology & Oncology 11/30/21 02/19/23 Emely Bauman MD Hematology & Oncology 11/30/21 Emely Bauman MD Assigned Cancer Care Provider 12/31/21 Chio Wilson, LETITIA Specialty Wireless Team Member Hematology & Oncology 03/06/23 10/23/23 documented as of this encounter
--- OUTSIDE RECORDS SUMMARY | 2023-11-16 09:50 | XMS_ITS | Encounter Summary ---
Author Organization [place] Address [facility] [place] [address] Care Team Providers Care Remote Operations Producer Name Role Phone Molina Warren MD Primary Care Provider [phone] Louise uMstafa RN Unavailable [phone] Radha Clark RN Unavailable [phone] Emely Bauman MD Unavailable Unava ilable Emely Bauman MD Unavailable Unava ilable Chio Wilson RN Unavailable Unavailable Encounter Details Date Type Department Care Team (Late st Contact Info) Description 02/06/2023 [facility] [facility] [address] [place] [phone] Emely Bauman MD Social History Tobacco Use Types Packs/Day Years Used Date Smoking Tobacco: Never Smokeless Tobacco: Never Sex and Gender Information Value Date Recorded Sex Assigned at Female 08/22/2021 11:54 AM STACK CLERK Gender Identity Female 08/22/2021 11:54 AM STACK CLERK Sexual Orientation Straight 08/22/2021 11 :54 AM STACK CLERK documented as of this encounter Plan of Treatment Not on file documented as of this encounter Visit Diagnoses Not on filedocumented in this encounter Care Teams Remote Operations Producer Relationship Specialty Start Date End Date Molina Warren MD [facility] [address] [place] [address] PCP - General Hematology & Oncology 09/02/21 Louise Mustafa, RN Specialty Ux Ui Designer Hematology & Oncology 09/02/21 Radha Clark RN Specialty Ux Ui Designer Hematology & Oncology 11/30/21 02/19/23 Emely Bauman MD Hematology & Oncology 11/30/21 Emely Bauman MD Assigned Cancer Care Provider 12/31/21 Chio Wilson, LETITIA Specialty Ux Ui Designer Hematology & Oncology 03/06/23 10/23/23 documented as of this encounter
--- OUTSIDE RECORDS SUMMARY | 2023-11-16 09:50 | XMS_ITS | Encounter Summary ---
Author Organization [place] Address [facility] [place] [address] Care Team Providers Care Software Requirements Engineer Name Role Phone Molina Warren MD Primary Care Provider Louise Mustafa RN Unavailable [phone] Emely Bauman MD Unavailable Unava ilable Emely Bauman MD Unavailable Unava ilable Chio Wilson RN Unavailable Unavailable Encounter Details Date Type Department Care Team (Late st Contact Info) Description 10/22/2023 [facility] [place] [facility] Interventional Radiology [address] [place] [address] Kaylyn Kiran, LETITIA Social History Tobacco Use Types Packs/Day Years Used Date Smoking Tobacco: Never Passive Smoke Exposure: Never Smokeless Tobacco: Never PHQ-2 Answer Date Recorded PHQ-2 Score 0 07/06/2023 Adolescent Education Answer Date Record ed Getting School Help Needed Not on file 03/17 Sex and Gender Information Value Date Recorded Sex Assigned at Female 08/22/2021 11:54 AM FUEL RETROFITTING TECHNICIAN Gender Identity Female 08/22/2021 11:54 AM FUEL RETROFITTING TECHNICIAN Sexual Orientation Straight 08/22/2021 11 :54 AM FUEL RETROFITTING TECHNICIAN documented as of this encounter Plan of Treatment Not on file documented as of this encounter Visit Diagnoses Not on filedocumented in this encounter Care Teams Software Requirements Engineer Relationship Specialty Start Date End Date Molina Warren MD [facility] [address] [place] [address] PCP - General Hematology & Oncology 09/02/21 Louise Mustafa, RN Specialty Plaster Tender Hematology & Oncology 09/02/21 Emely Bauman MD Hematology & Oncology 11/30/21 Emely Bauman MD Assigned Cancer Care Provider 12/31/21 Chio Wilson, LETITIA Specialty Plaster Tender Hematology & Oncology 03/06/23 10/23/23 documented as of this encounter
--- OUTSIDE RECORDS SUMMARY | 2023-11-16 09:50 | XMS_ITS | Encounter Summary ---
Author Organization [place] Address [facility] [place] [address] Care Team Providers Care Roof Shingler Name Role Phone Molina Warren MD Primary Care Provider [phone] Louise Mustafa RN Unavailable [phone] Radha Clark RN Unavailable [phone] Emely Bauman MD Unavailable Unava ilable Emely Bauman MD Unavailable Unava ilable Chio Wilson RN Unavailable Unavailable Encounter Details Date Type Department Care Team (Late st Contact Info) Description 05/07/2022 [facility] [place] [facility] [address] [place] [address] Emely Bauman MD Social History Tobacco Use Types Packs/Day Years Used Date Smoking Tobacco: Never Smokeless Tobacco: Never Sex and Gender Information Value Date Recorded Sex Assigned at Female 08/22/2021 11:54 AM TICKET SCHEDULER Gender Identity Female 08/22/2021 11:54 AM TICKET SCHEDULER Sexual Orientation Straight 08/22/2021 11 :54 AM TICKET SCHEDULER documented as of this encounter Plan of Treatment Not on file documented as of this encounter Visit Diagnoses Not on filedocumented in this encounter Care Teams Roof Shingler Relationship Specialty Start Date End Date Molina Warren MD [facility] [address] [place] [address] PCP - General Hematology & Oncology 09/02/21 Louise Mustafa, RN Specialty Expedition Supervisor Hematology & Oncology 09/02/21 Radha Clark RN Specialty Expedition Supervisor Hematology & Oncology 11/30/21 02/19/23 Emely Bauman MD Hematology & Oncology 11/30/21 Emely Bauman MD Assigned Cancer Care Provider 12/31/21 Chio Wilson, LETITIA Specialty Expedition Supervisor Hematology & Oncology 03/06/23 10/23/23 documented as of this encounter
--- OUTSIDE RECORDS SUMMARY | 2023-11-16 09:50 | XMS_ITS | Encounter Summary ---
Author Organization [place] Address [facility] [place] [address] Care Team Providers Care Packing Machine Operator Name Role Phone Molina Warren MD Primary Care Provider [phone] Louise Mustafa RN Unavailable [phone] Radha Clark RN Unavailable [phone] Emely Bauman MD Unavailable Unava ilable Emely Bauman MD Unavailable Unava ilable Chio Wilson RN Unavailable Unavailable Encounter Details Date Type Department Care Team (Late st Contact Info) Description 12/06/2022 [facility] Medical Advice [facility] [address] [place] [phone] Emely Bauman MD Social History Tobacco Use Types Packs/Day Years Used Date Smoking Tobacco: Never Smokeless Tobacco: Never Sex and Gender Information Value Date Recorded Sex Assigned at Female 08/22/2021 11:54 AM TOMOGRAPHIC TECH Gender Identity Female 08/22/2021 11:54 AM TOMOGRAPHIC TECH Sexual Orientation Straight 08/22/2021 11 :54 AM TOMOGRAPHIC TECH documented as of this encounter Plan of Treatment Not on file documented as of this encounter Visit Diagnoses Not on filedocumented in this encounter Care Teams Packing Machine Operator Relationship Specialty Start Date End Date Molina Warren MD [facility] [address] [place] [address] PCP - General Hematology & Oncology 09/02/21 Louise Mustafa, RN Specialty World Travel Counselor Hematology & Oncology 09/02/21 Radha Clark RN Specialty World Travel Counselor Hematology & Oncology 11/30/21 02/19/23 Emely Bauman MD Hematology & Oncology 11/30/21 Emely Bauman MD Assigned Cancer Care Provider 12/31/21 Chio Wilson, LETITIA Specialty World Travel Counselor Hematology & Oncology 03/06/23 10/23/23 documented as of this encounter
--- OUTSIDE RECORDS SUMMARY | 2023-11-16 09:50 | XMS_ITS | Encounter Summary ---
Author Organization [place] Address [facility] [place] [address] Care Team Providers Care Facility Environmental Technician Name Role Phone Molina Warren MD Primary Care Provider [phone] Louise Mustafa RN Unavailable [phone] Radha Clark RN Unavailable [phone] Emely Bauman MD Unavailable Unava ilable Emely Bauman MD Unavailable Unava ilable Chio Wilson RN Unavailable Unavailable Encounter Details Date Type Department Care Team (Late st Contact Info) Description 12/28/2022 [facility] Medical Advice [facility] [address] [place] [phone] Marie Gale Social History Tobacco Use Types Packs/Day Years Used Date Smoking Tobacco: Never Smokeless Tobacco: Never Sex and Gender Information Value Date Recorded Sex Assigned at Female 08/22/2021 11:54 AM STEWARD/STEWARDESS SECOND CLASS Gender Identity Female 08/22/2021 11:54 AM STEWARD/STEWARDESS SECOND CLASS Sexual Orientation Straight 08/22/2021 11 :54 AM STEWARD/STEWARDESS SECOND CLASS documented as of this encounter Plan of Treatment Not on file documented as of this encounter Visit Diagnoses Not on filedocumented in this encounter Care Teams Facility Environmental Technician Relationship Specialty Start Date End Date Molina Warren MD [facility] [address] [place], [place] [id number] PCP - General Hematology & Oncology 09/02/21 Louise Mustafa, RN Specialty Mold Carrier Hematology & Oncology 09/02/21 Radha Clark RN Specialty Mold Carrier Hematology & Oncology 11/30/21 02/19/23 Emely Bauman MD Hematology & Oncology 11/30/21 Emely Bauman MD Assigned Cancer Care Provider 12/31/21 Chio Wilson RN Specialty Mold Carrier Hematology & Oncology 03/06/23 10/23/23 documented as of this encounter
--- OUTSIDE RECORDS SUMMARY | 2023-11-16 09:50 | XMS_ITS | Referral Summary ---
Author Organization [place] Address [address] [place] [address] Care Team Providers Care Microsoft Application Developer Name Role Phone Molina Warren MD Primary Care Provider [phone] Louise Mustafa RN Unavailable [phone] Emely Bauman MD Unavailable Unava ilable Emely Bauman MD Unavailable Unava ilable Encounters Date Type Department Care Team Description 10/22/[address] [facility] Medical Advice [facility] Interventional Radiology [address] [place] [id number] Kaylyn Kiran, RN from Last 3 Months Allergies Active Allergy Reactions Criticality Noted Date Comments [facility]:Red Dye+Acetaminophen+Propoxyphene Nausea 05/04/2006 Sulfa Antibiotics Nausea and [...] onto the skin 07/13/2021 Active nystatin (MYCOSTATIN) 606774 UNIT/GM external powder Apply 1 strip topically 07/18/2021 Active citalopram (CELEXA) 20 MG tablet Take 1 tablet (20 mg) by mouth 02/17/2022 Active cjfteqeg-dvwdbhytq-k examethasone (MAXITROL) 3.5-98842-9.1 SUSP ophthalmic susp INSTILL 1 DROP INTO [...] Sex Assigned at Female 08/22/2021 11:54 AM ATHLETIC AGENT Gender Identity Female 08/22/2021 11:54 AM ATHLETIC AGENT Sexual Orientation Straight 08/22/2021 11 :54 AM ATHLETIC AGENT Last Filed Vital Signs Vital Sign Reading Time Taken Comments Blood Pressure 159/97 12/22/2021 1:33 PM CDT Pulse 81 12/22/2021 1:33 PM CDT Temperature 36.7 ??C (98 ??F) 12/22/2021 1:33 PM CDT Respiratory Rate 16 12/22/2021 1:33 PM CDT Oxygen Saturation 99% 12/22/2021 1:33 PM CDT Inhaled Oxygen Concentration - - Weight 120.2 kg (265 lb) 07/06/2023 1:29 PM ATHLETIC AGENT Height 177.8 cm (5' 10) 07/06/2023 1:29 PM ATHLETIC AGENT Body Mass Index 38.02 07/06/2023 1:29 PM ATHLETIC AGENT Plan of Treatment Not on file Procedures Procedure Name Priority Date/Time Associated Diagnosis Comments MA SCREENING BILATERAL W/ DARIELA Routine 07/20/2023 10:54 AM ATHLETIC AGENT COMPREHENSIVE METABOLIC PANEL Routine 12/22/2021 1:41 PM CDT Choroidal malignant melanoma, left (H) from Last 3 Months or Most Recently Relevant to Health Maintenance Results * Comprehensive metabolic panel (12/22/2021 1:41 PM CDT) Sodium 139 133 - 144 mmol/L 12/22/2021 2:21 PM CDT [facility] Potassium 3.8 3.4 - 5.3 mmol/L 12/22/2021 2:21 PM CDT [facility] Chloride 104 94 - 109 mmol/L 12/22/2021 2:21 PM CDT [facility] Carbon Dioxide (CO2) 28 20 - 32 mmol/L 12/22/2021 2:21 PM CDT [facility] Anion Gap 7 3 - 14 mmol/L 12/22/2021 2:21 PM CDT [facility] Urea Nitrogen 17 7 - 30 mg/dL 12/22/2021 2:21 PM CDT [facility] Creatinine 0.84 0.52 - 1.04 mg/dL 12/22/2021 2:21 PM CDT [facility] Calcium 9.1 8.5 - 10.1 mg/dL 12/22/2021 2:21 PM CDT [facility] Glucose 94 70 - 99 mg/dL 12/22/2021 2:21 PM CDT [facility] Alkaline Phosphatase 82 40 - 150 U/L 12/22/2021 2:21 PM CDT [facility] AST 19 0 - 45 U/L 12/22/2021 2:21 PM CDT [facility] ALT 35 0 - 50 U/L 12/22/2021 2:21 PM CDT [facility] Protein Total 7.0 6.8 - 8.8 g/dL 12/22/2021 2:21 PM CDT [facility] Albumin 3.6 3.4 - 5.0 g/dL 12/22/2021 2:21 PM CDT [facility] Bilirubin Total 0.5 0.2 - 1.3 mg/dL 12/22/2021 2:21 PM CDT [facility] GFR Estimate 80 >60 mL/min/1.7 3m2 12/22/2021 2:21 PM CDT [facility] Comment:Effective May 262020 eGFRcr in adults is calculated using the 2020 CKD-EPI creatinine equation which includes age and gender ([employer] Agent Protective Service et al., NEJM, DOI: 10.1056/BBMPnc6686121) Blood STRUCTURE OF RIGHT UPPER LIMB / Unknown Venipuncture / Unknown 12/22/2021 1:41 PM CDT 12/22/2021 1:51 PM CDT Emely Levi MD LAB - BLOOD OR DERABLES [facility] [address] [place] [address] from Last 3 Months or Most Recently Relevant to Health Maintenance Care Teams Microsoft Application Developer Relationship Specialty Start Date End Date Molina [facility] [address] [place] [address] PCP - General Hematology & Oncology 09/02/21 Louise Mustafa, LETITIA Specialty Coal Grader Hematology & Oncology 09/02/21 Emely Bauman MD Hematology & Oncology 11/30/21 Emely Bauman MD Assigned Cancer Care Provider 12/31/21
--- OUTSIDE RECORDS SUMMARY | 2023-11-16 09:50 | XMS_ITS | Encounter Summary ---
Author Organization [place] Address [facility] [place] [address] Care Team Providers Care Train Announcer Name Role Phone Molina Warren MD Primary Care Provider [phone] Louise Mustafa RN Unavailable Radha Clark RN Unavailable [phone] Emely Bauman MD Unavailable Unava ilable Emely Bauman MD Unavailable Unava ilable Chio Wilson RN Unavailable Unavailable Encounter Details Date Type Department Care Team (Late st Contact Info) Description 11/24/2022 [facility] Medical Advice [facility] [address] [place] [phone] Emely Bauman MD Social History Tobacco Use Types Packs/Day Years Used Date Smoking Tobacco: Never Smokeless Tobacco: Never Sex and Gender Information Value Date Recorded Sex Assigned at Female 08/22/2021 11:54 AM RESERVATIONS AND TICKETING AGENT Gender Identity Female 08/22/2021 11:54 AM RESERVATIONS AND TICKETING AGENT Sexual Orientation Straight 08/22/2021 11 :54 AM RESERVATIONS AND TICKETING AGENT documented as of this encounter Plan of Treatment Not on file documented as of this encounter Visit Diagnoses Not on filedocumented in this encounter Care Teams Train Announcer Relationship Specialty Start Date End Date Molina Warren MD [facility] [address] [place] [address] PCP - General Hematology & Oncology 09/02/21 Louise Mustafa, RN Specialty Wire Threader Hematology & Oncology 09/02/21 Radha Clark RN Specialty Wire Threader Hematology & Oncology 11/30/21 02/19/23 Emely Bauman MD Hematology & Oncology 11/30/21 Emely Bauman MD Assigned Cancer Care Provider 12/31/21 Chio Wilson, LETITIA Specialty Wire Threader Hematology & Oncology 03/06/23 10/23/23 documented as of this encounter
--- OUTSIDE RECORDS SUMMARY | 2023-11-16 09:51 | XMS_ITS | Encounter Summary ---
Author Organization [place] Address [facility] [place] [address] Care Team Providers Care Law Enforcement Officer Name Role Phone Molina Warren MD Primary Care Provider [phone] Louise Mustafa RN Unavailable [phone] Molina Warren MD Unavailable [phone] Radha Clark RN Unavailable [phone] Emely Bauman MD Unavailable Unava ilable Emely Bauman MD Unavailable Unava ilable Chio Wilson RN Unavailable Unavailable Encounter Details Date Type Department Care Team (Late st Contact Info) Description 12/09/2021 [facility] Medical Advice [facility] [address] [place] [phone] Emely Bauman MD Social History Tobacco Use Types Packs/Day Years Used Date Smoking Tobacco: Never Smokeless Tobacco: Never Sex and Gender Information Value Date Recorded Sex Assigned at Female 08/22/2021 11:54 AM FURNACE OPERATOR AND TENDER Gender Identity Female 08/22/2021 11:54 AM FURNACE OPERATOR AND TENDER Sexual Orientation Straight 08/22/2021 11 :54 AM FURNACE OPERATOR AND TENDER documented as of this encounter Plan of Treatment Not on file documented as of this encounter Visit Diagnoses Not on filedocumented in this encounter Care Teams Law Enforcement Officer Relationship Specialty Start Date End Date Molina Warren MD [facility] [address] [place] [address] PCP - General Hematology & Oncology 09/02/21 Louise Mustafa, RN Specialty Volunteer Services Manager Hematology & Oncology 09/02/21 Molina Warren MD [facility] [address] [place] [address] Assigned Cancer Care Provider 09/18/21 12/30/21 Radha Clark RN Specialty Volunteer Services Manager Hematology & Oncology 11/30/21 02/19/23 Emely Bauman MD Hematology & Oncology 11/30/21 Emely Bauman MD Assigned Cancer Care Provider 12/31/21 Chio Wilson RN Specialty Volunteer Services Manager Hematology & Oncology 03/06/23 10/23/23 documented as of this encounter
--- OUTSIDE RECORDS SUMMARY | 2023-11-16 09:51 | XMS_ITS | Encounter Summary ---
Author Organization [place] Address [address] [place] [address]. [place] [address] Care Team Providers Care Lead Data Entry Operator Name Role Phone Molina Warren MD Primary Care Provider [phone] Louise Mustafa RN Unavailable [phone] Molina Warren MD Unavailable [phone] Radha Clark RN Unavailable [phone] Emely Bauman MD Unavailable Unava ilable Emely Bauman MD Unavailable Unava ilable Chio Wilson RN Unavailable Unavailable Encounter Details Date Type Department Care Team (Late st Contact Info) Description 11/30/2021 [facility] Medical Advice [address] [phone] Molina Warren MD [facility] [address] [place] [address] Social History Tobacco Use Types Packs/Day Years Used Date Smoking Tobacco: Never Smokeless Tobacco: Never Sex and Gender Information Value Date Recorded Sex Assigned at Female 08/22/2021 11:54 AM STAGE ELECTRICIAN HELPER Gender Identity Female 08/22/2021 11:54 AM STAGE ELECTRICIAN HELPER Sexual Orientation Straight 08/22/2021 11 :54 AM STAGE ELECTRICIAN HELPER documented as of this encounter Plan of Treatment Not on file documented as of this encounter Visit Diagnoses Not on filedocumented in this encounter Care Teams Lead Data Entry Operator Relationship Specialty Start Date End Date Molina Warren MD [facility] [address] [facility] [place] [address] PCP - General Hematology & Oncology 09/02/21 Louise Mustafa, RN Specialty Occupational Therapy Professor Hematology & Oncology 09/02/21 Molina Warren MD [facility] [address] [place] [id number] Assigned Cancer Care Provider 09/18/21 12/30/21 Radha Clark RN Specialty Occupational Therapy Professor Hematology & Oncology 11/30/21 02/19/23 Emely Bauman MD Hematology & Oncology 11/30/21 Emely Bauman MD Assigned Cancer Care Provider 12/31/21 Chio Wilson, LETITIA Specialty Occupational Therapy Professor Hematology & Oncology 03/06/23 10/23/23 documented as of this encounter
--- OUTSIDE RECORDS SUMMARY | 2023-11-16 09:51 | XMS_ITS | Clinical Summary ---
Author Organization [employer] [facility] Address [place], [place] [address] Care Team Providers Care Timber Trimmer Name Role Phone Moon Lyon MD Primary [...] daily. 90 Tablet 3 07/17/19 23 Active NITROGLYCERIN 0.2 % IN PETROLATUM OINTMENT, [facility] MIXTURE,Indications:Darshan fissure Insert 0.25 g rectally 3 [...] 12/07/19 23 Active esomeprazole (NEXIUM) 40 mg capsuleIndications:[place] Caser thanh GERD Take 2 Capsules (80 mg) by mouth once daily before a meal. 180 Capsule 3 12/07/19 23 Active propranolol ER (INDERAL LA) 60 mg Cs24 Sustained-Release capsule Take 1 Capsule by mouth once daily. 03/05/20 23 Active atorvastatin (LIPITOR) 40 mg tabletIndications:Pure hypercholesterolemia Take 1 Tablet (40 mg) by mouth once daily. 90 Tablet 3 07/06/19 24 Active ezetimibe (ZETIA) 10 mg tabletIndications:CAD in [place] artery Take 1 Tablet (10 mg) by mouth once daily. 90 Tablet 3 07/06/19 24 Active citalopram (CELEXA) 20 mg tabletIndications:Anxie ty TAKE 1 TABLET BY MOUTH ONCE DAILY 90 Tablet 3 07/11/19 24 Active buPROPion (WELLBUTRIN SR) 150 mg Sustained-Release tabletIndications:Depre ssion, unspecified depression type TAKE 2 TABLETS IN THE MORNING AND 1 TABLET IN THE EVENING 270 Tablet 2 08/22/19 24 Active levothyroxine (SYNTHROID) 125 mcg tabletIndications:Hypot hyroidism (acquired) Take 1 Tablet (125 mcg) by mouth once daily. 90 Tablet 2 10/25/19 24 Active zolpidem CR (AMBIEN CR) 6.25 mg Extended-Release tabletIndications:Insom garcia, idiopathic Take 1 Tablet (6.25 mg) by mouth at bedtime if needed for Sleep. 3 Tablet 10/30/19 24 Active zolpidem CR (AMBIEN CR) 6.25 mg Extended-Release tabletIndications:Insom garcia, idiopathic Take 1 Tablet (6.25 mg) by mouth at bedtime if needed for Sleep. 90 Tablet 07/23/19 24 024 Discontinued levothyroxine (SYNTHROID) 125 mcg tabletIndications:Hypot hyroidism (acquired) Take 1 Tablet (125 mcg) by mouth once daily. 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 Cancer Staging:Pathologic stage from 10/03/2021: pT3b, cN0, cM0 - Signed by Emely Bauman MD on 09/04/2023 Acquired hypothyroidism 04/01/2018 Insomnia, idiopathic 12/11/2016 Pain [...] Encounters Date Type Department Care Team Description 11/14/2023 Orders Only [facility] Medical Imaging [address] [place] [address] Juan Carlos Scanlno RN <No scans attached> 10/31/2023 Medical Messaging [facility] [address] [place] [address] Bereket Noyola MD Back Issues 10/26/2023 Telephone [facility] [place] [employer] [address] [facility] [address] Surround App [place], [place] [address] [facility] Cancer Care Coordination (questions) 10/24/2023 Orders Only [facility] [address] [place] [address] Emely Bauman MD <No scans attached> 10/24/[address] [address] Moon Lyon MD Refill Request 10/23/2023 Refill [facility] 100 [place] [address] Moon Lyon MD Refill Request (Zolpidem Cr) 10/22/2023 Travel 10/18/2023 Telephone [facility] [address] [address] [facility] 300 [place] [address] [facility] Cancer Appointment 10/16/2023 Telephone [facility] [address] [address] [facility] [address] [place] [address] [facility] Cancer Referral 10/12/2023 11:00 AM CDT Telemedicine [facility] [address] [address] [facility] 300 [facility] [place] [address] Emely Bauman MD uveal melanoma 10/12/2023 Travel 09/28/2023 10:20 AM CDT Office Visit [facility] [address] [place] [address] Bereket Noyola MD Musculoskeletal Problem (Follow up back pain, facet injections on 08/07/23) 09/28/2023 Travel 09/26/2023 8:49 AM CDT - 09/26/2023 11:59 PM CDT Hospital Encounter [facility] Medical Imaging [address] [place], [place] [id number] Emely Bauman MD 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); Choroidal malignant melanoma, left (HC) 09/26/2023 Travel 09/18/2023 Orders Only [facility] [phone] Imaging, [place] <No scans attached> 09/13/2023 Orders Only [facility] Scanner 1 scan: (1-Ord) [facility], POST-OP LT TKA, 2 VIEWS LT KNEE., 09/13/2023 09/13/2023 Orders Only [facility] Scanner 1 scan: (1-Ord) [facility], LT TKA., 09/13/2023 09/10/2023 Orders Only [facility] [address] [facility] [place] [address] Emely Bauman MD <No scans attached> 09/07/2023 Telephone [facility] [address] [facility] [place] [address] [place], [facility] Cancer Questions 09/06/2023 Medical Messaging [facility] [address] [place] [address] Emely Bauman MD 09/04/2023 8:41 AM CDT - 09/04/2023 11:59 PM CDT Hospital Encounter [facility] [address] [facility] [place] [address] Choroidal malignant melanoma, left (HC); Pre-op exam 09/04/2023 Orders Only [facility] 200 [place] [address] Emely Bauman MD Lab 09/04/2023 Travel 08/29/2023 1:00 PM DEPUTY COUNTY CLERK Preop Visit [facility] 100 [place] [address] Moon Lyon MD Preoperative Exam (Surgery on 09/13/23); Immunization/Injectio n (COVID-19 vaccine) 08/29/2023 Travel 08/24/2023 Telephone [place] [address] [place] [address] [place] [address] Ramos Rossi MD Results (Lipid labs) 08/24/2023 Travel 08/22/2023 Refill [facility] [address] [facility] [place] [address] Moon Lyon MD Refill Request (Bupropion) from Last 3 Months Immunizations Name Administration Dates Next Due AMB Influenza, IIV3 (Age >=3 years)(Flu Clinic Only) 05/09/2012,05/09/2012 COVID-19 Vaccine Spikevax (M oderna 50mcg/0.5mL) 12YO+ [id number] Formula PF 08/29/2023 COVID-19 vaccine (Pfizer-Bio NTech 30mcg/0.3mL) 12YO+ JUAN-SUCROSE PF, MDV 2021 COVID-19 vaccine (Pfizer-Bio NTech 30mcg/0.3mL) PF, MDV 05/09/2021,10/06/2020,09/15/2020 COVID-19 vaccine Comirnaty (Pfizer-BioNTech 30mcg/0.3mL) 12YO+ [id number] Formula PF, SDV, PFS 03/16/2023 Influenza, IIV3 (Age 6-35 mos) 6,04/22/2015,03/31/2011,2008 Influenza, IIV3 (Age >=3 years) 03/09/20 21,03/17/2016,04/02/2014,2012,05/09/2012,03/31/2011,03/19/2010,1 ,05/07/2008,05/02/2006 Influenza, IIV4 03/10/2022, 1,03/24/2020,2018,04/01/2018,03/12/2017,04/23/2015 Influenza, IIV4 (=>6mos) MDV 03/15/2019 Influenza,CCIIV4 PRESERV [...] Sign Reading Time Taken Comments Blood Pressure 144/87 09/28/2023 10:25 AM CDT Pulse 82 09/28/2023 10:25 AM CDT Temperature 36.7 ??C (98.1 ??F) 09/28/2023 10:25 AM C DT Respiratory Rate 12 09/26/2023 12:15 PM CDT Oxygen Saturation 100% 09/28/2023 10:25 AM CDT Inhaled Oxygen Concentration - - Weight 132 kg (291 lb) 08/29/2023 1:04 PM DEPUTY COUNTY CLERK Height 177.8 cm (5' 10) 08/29/2023 1:04 PM DEPUTY COUNTY CLERK Body Mass Index 41.75 08/29/2023 1:04 PM [employer]PUTY [place] CLERK Plan of Treatment Upcoming Encounters Date Type Department Care Team (Late st Contact Info) Description 11/16/2023 10:20 AM CDT Office Visit [facility] [address] [place] [address] Bereket Noyola MD [address] [place] [address] Arrived 11/21/2023 11:15 AM CDT Preop Visit [facility] 100 [place] [address] Sdae Gonzalez MD 100 [place] [address] 11/23/2023 1:00 PM CDT Telemedicine [facility] [place] [address] [facility] [address] [place] [address] Emely Bauman MD [address] [facility] [address] [place] [address] 11/28/2023 9:00 AM CDT Appointment [facility] Medical Imaging [address] [place] [address] 12/07/2023 6:00 AM CDT Appointment [facility] Medical Imaging [address] [place] [address] Health Maintenance Due Date Last Done Comments COVID-19 vaccine series ( season) 2023 08/29/2023, 03/16/2023, 05/26/2022, Additional history exists Influenza for age 50-64 02/24/2024 03/16/20 23, 03/10/2022, 03/09/2021, Additional history exists Depression screening for age 12+ 07/20/2024 07/20/2023, 07/17/2022, 07/13/2021, Additional history exists Mammogram for age 45-75 07/20/2024 07/20/19 24, 07/17/2022, 07/13/2021, Additional history exists BMI (ht and wt on same day) for age 18+ 08/28/2024 08/29/2023, 07/20/2023, 09/01/2022, Additional history exists Colonoscopy through age 75 01/10/202701/10, 01/02/2012 [facility] Lipids for age 45-75 08/23/2028 08/24/2023, 08/24/2023, 06/29/2023, Additional history exists Tetanus booster 07/17/2032 07/17/2022, 05/25, 03/26/2003, Additional history exists Zoster (shingles) series for age 50+ Completed 07/05/2018, 04/01/2018 Hepatitis C screening for ag e 18-79 Completed 06/28/2019 Pneumococcal series for age 6-64 Completed 03/10/20 Tdap Completed 07/17/2022, 05/25, 03/26/2003 HIV for age 15-65 Completed 09/05/2022 Procedures Procedure Name Priority Date/Time Associated Diagnosis Comments [facility] MISCELLANEOUS SENDOUT Routine 10/22/2023 10:40 AM CDT 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, left (HC) TSH Routine 10/22/2023 10:40 AM CDT Acquired hypothyroidism BASIC METABOLIC PANEL Routine 10/22/2023 10:40 AM CDT History of hyperkalemia MISCELLANEOUS SEND OUT Routine 10/22/2023 10:40 AM CDT 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, left (HC) US BIOPSY LIVER Routine 09/26/2023 11:19 AM CDT 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, left (HC) PATH FNA CYTOLOGY ASP CYTOLOGY Today 09/26/2023 10:41 AM CDT FOCUS Routine 09/26/2023 10:41 AM CDT PLATELET COUNT STAT 09/26/2023 9:02 AM CDT PROTIME-INR STAT 09/26/2023 9:02 AM CDT US ABDOMEN COMPLETE Routine 09/18/2023 9 :55 AM CDT 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) SCAN-RADIOLOGY REPORT 09/13/2023 12:00 AM CDT SCAN-OPERATIVE/PROC EDURE REPORT 09/13/2023 12:00 AM CDT MR ABDOMEN WWO Routine 09/04/2023 10:07 AM CDT Choroidal malignant melanoma, left (HC) CT CHEST WO Routine 09/04/2023 9:15 AM CDT Choroidal malignant melanoma, left (HC) CBC W PLT NO DIFF Routine 09/04/2023 9:0 1 AM CDT Pre-op exam COMP METABOLIC PANEL Today 09/04/2023 8:57 AM CDT Choroidal malignant melanoma, left (HC) TSH Routine 08/24/2023 10:34 AM [employer]PUTY [place] CLERK Acquired hypothyroidism LIPID PANEL Routine 08/24/2023 10:34 AM [place]PUTY [place] CLERK Pure hypercholesterolemia LIPID PANEL W REFLEX MEASURED LDL Routine 08/24/2023 10:34 AM [place]PUTY [place] CLERK Pure hypercholesterolemia XR MAMMO DARIELA BILAT SCREEN Routine 07/20/2023 10:54 AM DEPUTY COUNTY CLERK Visit for screening mammogram LC HIV-1/O/2, 4TH GENERATION Today 09/05/2022 10:42 AM CDT Screening for HIV (human immunodeficiency virus) COLONOSCOPY 01/10/2022 7:20 AM CDT ANTI HCV Routine 06/28/2019 9:41 AM [employer]PUTY COUNTY CLERK Encounter for hepatitis C screening test for low risk patient from Last 3 Months or Most Recently Relevant to Health Maintenance Results * [facility] (10/22/2023 10:40 AM CDT) [facility] SEND OUT COMMENT 10/30/2023 3:10 PM CDT [facility] Comment: Test Ordered: [id number] HLA-A*02:01 HLA-A ?Comment ? 01 ? A*01:01:01G HLA-A ?Comment ? 01 ? A*32:01:01G HLA-A*02:01 is NEGATIVE. The following alleles could not be ruled out: A* ? :::06/25::01:02/:01::03:01:01:04 ? /01:01:01:05:01:01:06:01:01:07:01:01:08 ? /01:01::09:::10:::11::01:12 ? /01:01::13::01:14::01:15::01:16 ? /01:::17::01:18::01:13/07::01:20 ? /01:01::15/07:01:01:16/07:01::17/07::01:24 ? /01:::19/07:01::20/07:::21/07:01:01:28 ? /:::23/07:::24/07:::25/07:01:01:32 ? /:::::01::::35::01:36 ? /:::::::::::01:40 ? /::::::42:::43::01:44 ? /:::45:01:01:46:01::47::01:48 ? /:::49::01:50:01::51::01:52 ? /:::53:::54:01:01:55:01:01:56 ? /:::57:01:01:58:01:01:59:01:01:60 ? /:::61:01:01:62:01::63:01:01:64 ? /01::01:65:01:01:66:01:01:67:01:01:68 ? /:::69:01:01:70::01:71:01:01:72 ? /01:01:01:73/01:01:01:74/01:01:01:75/01:01:01:76 ? /01:01:01:77:01:01:78:01:01:79:01:01:80 ? /01:::81:01:01:82::01:83:01:01:84 ? /01:01::85:01:01:86:01::87::01:88 ? /:::::01::01:::01:01:92 ? /:::::01:::::01:01:96 ? /01:01:01:97:01:01:98:01:01:99:01:01:100 ? /:::101:01:01:102:01:01:103/:01:01:104 ? /:::105:01:01:106/:01:01:107/:01:01:108 ? /::01:109/:01:01:110/01:01:01:111/:01:01:112 ? /::01:113/:01:38L/01:01:51/01:01:83/01:01:84 ? /01:::01:93/:01:94:01:95/01:01:100 ? /01::103/:01:104/01:01:105/:01:106/01:01:108 ? /01:01:115/01:01:116/01:01:118/01:01:121/01:01:127 ? /01:01:134/01:01:136/01:01:138/01:01:139/01:01:140 ? /01:01:143/01:04:01:01N/01:04:01:02N/01:22N/01:32 ? /01:37:01:01/01:37:01:02/01:45/01:56N/01:81/01:87N ? /01:103/01:107/01:109/01:132/01:141/01:142/01:155 ? /01:177/:212/01:217/:234/:237/:246/:248Q ? /01:249/:251/01:252/:253/:261/01:274/01:276 ? /01:277/:280/01:281Q/01:288/01:291/01:295/01:296 ? /01:297/:300/01:305/01:306/01:309/01:316/01:317 ? /01:319/01:323/01:324/01:325/01:328N/:331/01:332 ? /01:346/01:347/01:349/01:351/01:353/01:356/01:357 ? /01:358/01:367/01:368/01:370/01:371/01:372/01:377 ? /01:378/01:379N/01:383/01:385/01:386/01:387/01:388 ? /01:389/01:392/01:404/01:406/01:407/01:409/01:410 ? /01:411N/01:415/01:419/01:421N/01:422/01:426/01:433N A* ? 32:01:01::01:01::01:01::01:01:04 ? /32:01:01::01:01::01:01::01:01:08 ? /32:01:::01:01::01:01::01:01:12 ? :01:01::01:01::01:::01:01:16 ? /:01:::01:01::01:01::01:01:20 ? /32:01:::01:01::01:01::01:01:24 ? /32:01:01::01:01::01:01::01:01:28 ? /32:01:01::01:01::01:01::01:01:32 ? /32:01:01:3332:01:01:32:01:01:3532:01:01:36 ? /32:01:01:3732:01:01:32:01:01:3932:01:01:40 ? /32:01::01::01::01::01:34 ? /32:01:3532:01:3632:01:4232:01:4432:01:46 ? /32:01:5132:01:5332:01:54/32:53/32:54/32:61/32:68 ? /32:74/32:103/32:106:01:01/32:106:01:02/32:110 ? /32:111/32:114/32:116/32:117N/32:121/32:122/32:124 ? /32:134/32:139/32:147/32:148/32:149/32:154/32:155 ? /32:161/32:162/32:168N/32:172 HLA allele interpretation for all loci based on IMGT/HLA database version 3.53.0 This test was developed and its performance characteristics determined by [employer]. ??It has not been cleared or approved by the Food and Drug Administration. HLA Lab CLIA ID Number [id number] HLA Methodology ?Comment ? 01 ?? HLA results were obtained using Next Generation Sequencing (NGS). Supplemental procedures based on sequence based typing (SBT) and/or sequence specific oligonucleotide probes (SSOP) may be used as needed to obtain the required resolution. If you have questions, please call HLA customer service at or email at [email or web address]. Blood BLOOD SPECIMEN / Unknown Venipuncture / Unknown 10/22/2023 10:40 AM CDT 10/22/2023 10:40 AM CDT Narrative [facility] ([facility]) - 10/30/2023 3:10 PM CDT Performed At: 01 [facility] DNA [address] [place], [place] [id number] Bossman Morales PhD Ph:[phone] Performed At: 02 [facility] [address] [place], [place] [id number] Marcia Chavez MD Ph:[phone] Bethanieio Burton Levi MD LABORATORY [facility] ([facility]) [address] [place] [address], [place] * TSH (10/22/2023 10:40 AM CDT) Only the most recent of2 resultswithin the time period is included. TSH 0.41 0.27 - 4.20 uIU/mL 10/23/2023 4:02 AM CDT [facility] LABORATORY Blood BLOOD SPECIMEN / Unknown Venipuncture / Unknown 10/22/2023 10:40 AM CDT 10/22/2023 10:40 AM CDT [facility] LABORATORY - 10/23/2023 4:02 AM CDT In Adults, TSH values between 5.00 and 10.00 uIU/ml do not necessarily indicate the presence of Hypothyroidism. Correlation with clinical findings such as presence of goiter and/or Thyroperoxidase (TPO) Antibody may be helpful. For more information please refer to TAM 2004; 291: 228-238. Moon Lyon MD CHEMISTRY [facility] LABORATORY [address] [place] [address], * MISCELLANEOUS SEND OUT (10/22/2023 10:40 AM CDT) TEST NAME HLA A A*02:01-Specific 10/23/2023 10:04 AM CDT [facility] SOURCE Blood 10/23/2023 10:04 AM CDT [facility] PERFORMING LAB [facility] 10/23/2023 10:04 AM CDT [facility] REFERRAL LAB TEST # [id number] 10/23/2023 10:04 AM CDT [facility] IS THIS A [facility] TEST? Yes, See [facility] Miscellaneous Sendout result 10/23/2023 10:04 AM CDT [facility] Blood BLOOD SPECIMEN / Unknown Venipuncture / Unknown 10/22/2023 10:40 AM CDT 10/22/2023 10:40 AM CDT Emely Levi MD SEND OUTS [facility] [address] [place] [address], * (ABNORMAL) BASIC METABOLIC PANEL (10/22/2023 10:40 AM CDT) SODIUM 141 136 - 145 mmol/L 10/23/2023 4:01 AM T [facility] TRAL LABORATORY POTASSIUM 4.3 3.5 - 5.1 mmol/L 10/23/2023 4:01 AM [facility] TRAL LABORATORY CHLORIDE 105 98 - 107 mmol/L 10/23/2023 4:01 AM [facility] TRAL LABORATORY CO2,TOTAL 25 22 - 29 mmol/L 10/23/2023 4:01 AM [facility] TRAL LABORATORY ANION GAP 11 5 - 18 10/23/2023 4:01 AM [facility] TRAL LABORATORY GLUCOSE 102(H) 70 - 99 mg/dL 10/23/2023 4:01 AM [facility] TRAL LABORATORY CALCIUM 9.6 8.6 - 10.0 mg/dL 10/23/2023 4:01 AM [facility] TRAL LABORATORY BUN 22(H) 6 - 20 mg/dL 10/23/2023 4:01 AM [facility] TRAL LABORATORY CREATININE 0.75 0.50 - 0.90 mg/dL 10/23/2023 4:01 AM [facility] TRAL LABORATORY BUN/CREAT RATIO 29(H) 10 - 20 4:01 AM [facility] TRAL LABORATORY eGFR >90 >90 mL/min/1.7 3m2 10/23/2023 4:01 AM [facility] TRAL LABORATORY Comment:As of 2021, eG FR is calculated by the CKD-EPI creatinine equation without race adjustment. ??eGFR can be influenced by muscle mass, exercise, and diet. ??The reported eGFR is an estimation only and is only applicable if the renal function is stable. Blood BLOOD SPECIMEN / Unknown Venipuncture / Unknown 10/22/2023 10:40 AM CDT 10/22/2023 10:40 AM CDT Moon Lyon MD CHEMISTRY [facility] LAB[facility]ORY [address] [place] [address], [place] * US BIOPSY LIVER (09/26/2023 11:19 AM CDT) Anatomical Region Laterality Modality Abdomen Ultrasound, Othe r, Other, Other Narrative 09/26/2023 4:32 PM CDT RADIOLOGY POST PROCEDURE NOTE ?? 09/26/2023 Latrice Thomas [id number] INFORMEDCONSENT: In my discussion, prior to the signing of the consent, I reviewed the procedure, benefits, risks, long-term effects, treatment options, possible use of pain or sedation medications, and how the procedure will meet the treatment goal with the patient and/or family. The patient was given ample time to ask questions. All questions were answered. ?? MODERATESEDATION: Under physician supervision, midazolam and fentanyl were administered intravenously for moderate sedation. Pulse oximetry, heart rate, and blood pressure were continuously monitored by a trained, dedicated nurse. The physician who performed the procedure provided 27 minutes of intra-service time with the patient. INDICATIONS: Liver lesions. PROCEDURE PERFORMED: Ultrasound-guided biopsy of the lesion in the right lobe of the liver. PROCEDURE NARRATIVE: Ultrasound was used to localize a lesion in the right lobe of the liver. ??The overlying skin was prepped and draped in the usual sterile fashion. ??1% lidocaine was used for local anesthesia. ??An 18-gauge core biopsy device was advanced into the lesion x 6 and the samples were handed to pathology. POST-PROCEDURE DIAGNOSIS: ??Status post ultrasound-guided biopsy of a lesion in the right lobe of the liver. PATIENT POSITION: Supine ANTISEPTIC PREPARATION and BARRIER TECHNIQUES USED: ??skin was prepped and draped in the usual sterile fashion IMAGING GUIDANCE FOR ACCESS / PROCEDURE: Ultrasound permanently recorded images are archived in PACS. ACCESS LOCATION / SITE / TECHNIQUE: Right abdomen. EQUIPMENT UTILIZED: 18-gauge core biopsy device. CLOSURE: None RADIATION DOSE: None MEDICATIONS GIVEN: ??versed 4 mg IV and fentanyl 200 mcg IV. ??1% Lidocaine was used for local anesthesia. SPECIMEN(S): 18-gauge core biopsy x 6. COMPLICATIONS: no complications noted DRAINS: ??None ?? ESTIMATED BLOOD LOSS: ??Less than 10 cc. PHYSICIAN(S) AND ASSISTANTS (if any): ??Jarret Cooney MD Additional Comments: Please call with questions. Jarret Cooney MD [place] Protocol A. Pre-procedure verification complete yes 1-relevant information / documentation available, reviewed and properly matched to the patient; 2-consent accurate and complete, 3-equipment and supplies available B. Site marking complete Yes Site marked if not in continuous attendance with patient C. TIME OUT completed yes Time Out was conducted just prior to starting procedure to verify the eight required elements: 1-patient identity, 2-consent accurate and complete, 3-position, 4-correct side/site marked (if applicable), 5-procedure, 6-relevant images / results properly labeled and displayed (if applicable), 7-antibiotics / irrigation fluids (if applicable), 8-safety precautions. Emely Levi MD [place] * FOCUS (09/26/2023 10:41 AM CDT) Aspirate SPECIMEN FROM LIVER / Unknown 09/26/2023 10:41 AM CDT 09/27/2023 9:57 AM CDT Emely Levi MD LABORATORY [facility] LAB[facility] 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 Case: [id number] ? Authorizing Provider: ??Emely Bauman, ?? Collected: ? 09/26/2023 1041 ? MD ? Ordering Location: ? [facility] ?Received: ?09/26/2023 1120 ? [facility] ? Pathologist: ? Lefty Anne MD ? Specimen: ?Liver, lesion ? 10/04/2023 5:34 PM CDT [facility] LABORAT[facility]-C ENTRAL LABORATORY Amendment 10/04/2023 - Amendment to report [facility] Melanoma Targeted Next Generation Sequencing results. Please see diagnosis and attached scanned report. 10/04/2023 5:34 PM CDT [facility] LABORAT[facility] ENTRAL LABORATORY Final Diagnosis A) LIVER, LESION, NEEDLE BIOPSY: 1. Metastatic melanoma 2. Background nonneoplastic liver shows no evidence of primary or chronic liver disease 3. Ancillary testing: ?? a. NGS (melanoma panel): Positive for GNA11 mutation; see attached report 10/04/2023 5:34 PM CDT [facility] Amendment electronically signed by Vivian Bermeo MD on 10/04/2023 at 5:34 PM Comment This case was seen in consultation with Dr. Junior. 10/04/2023 5:[address] 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 MRI shows probable metastatic disease in the liver. 10/04/2023 5:[address] [facility] Gross Description A) Received identified as liver lesion is a radiologic guided biopsy specimen. The core biopsy sampling measures 1.0 cm x 0.4 cm in aggregate. The specimen consists of: ? -6 Air dried slides ? -1 Formalin vial ? -0 RPMI vials The following were prepared from the specimen submitted: ? -6 Diff-Quik stained slides ? -2 H&E stained cell block slides The biopsy material is entirely submitted in 2 cassettes. A2 Cell block material was removed from the patient and placed directly in formalin at 1046 on 09/26/23 and fixed in formalin at least 6 hours and no more than 72 hours. A3 Cell block material was removed from the patient and placed directly in formalin at 1046 on 09/26/23 and fixed in formalin at least 6 hours and no more than 72 hours. 10/04/2023 5:[address] [facility] Adequacy Assessment A) A.S. assessed adequacy from the air-dried smears at the time of the procedure with an impression of Adequate. 10/04/2023 5:34 PM CDT [facility] Microscopic Description Specimen adequacy: Adequate for interpretation. All slides were reviewed. The microscopic appearance substantiates the diagnosis. 10/04/2023 5:34 PM CDT [facility] ENTRAL LABORATORY Molecular Diagnostics Summary Preanalytical microdissection of tissue/cytology slides for Next Generation Sequencing was performed according to laboratory protocol as follows: Microscopic examination was performed by a pathologist, Dr. Garcia, to determine specimen adequacy and identify areas of tumor for isolation. Areas of tumor selected and marked by the pathologist were manually harvested by a laboratory tech for nucleic acid extraction. 10/04/2023 5:34 PM CDT [facility] Additional Information Cytology is screened at [facility] - [address], [place] [address] [address] [facility] - [address], [place] [address] and [facility] - [address] [place] [address] Interpreted at [facility] - [address], [place] [address] 10/04/2023 5:34 PM CDT [facility] Aspirate SPECIMEN FROM LIVER / Unknown 09/26/2023 10:41 AM CDT 09/26/2023 11:20 AM CDT Emely Levi MD PATHOLOGY/CYTO LOGY [facility] [address] [place] [address], * Platelet Count (09/26/2023 9:02 AM CDT) PLATELET COUNT 432 140 - 440 thou/cu mm 09/26/2023 9:12 AM CDT [facility] MPV 7.9 6.5 - 11.0 fL 09/26/2023 9:12 AM CDT [facility] Blood BLOOD SPECIMEN / Unknown Venipuncture / Unknown 09/26/2023 9:02 AM CDT 09/26/2023 9:07 AM CDT Jarret Cooney MD HEMATOLOGY [facility] [address] [place] [address], [place] * Protime-INR (09/26/2023 9:02 AM CDT) INR 1.0 <1.3 09/26/2023 9:17 AM CDT [facility] PROTIME 11.6 10.3 - 12.3 sec 09/26/2023 9:17 AM CDT [facility] Blood BLOOD SPECIMEN / Unknown Venipuncture / Unknown 09/26/2023 9:02 AM CDT 09/26/2023 9:07 AM CDT Narrative [facility] - 09/26/2023 9:17 AM CDT ?Therapeutic Range 2.0-3.0 for most anticoagulated patients 2.5-3.5 or 4.0 for high risk patients The INR is only used for patients on stable oral anticoagulant therapy. It makes no significant contribution to the diagnosis or treatment of patients whose Protime is prolonged for other reasons. INR results are increased when heparin levels exceed 1.0 U/mL, which corresponds to an aPTT >125 seconds if the patient is on UFH. Jarret Cooney MD HEMATOLOGY [facility] [address] [address], [place] * US ABDOMEN COMPLETE (09/18/2023 9:55 AM CDT) Anatomical Region Laterality Modality Abdomen, LIVER, KIDNEYS, PANCREAS, GALLBLADDER, SPLEEN Ultrasound 09/18/2023 9:55 AM CDT Impressions 09/18/2023 10:27 AM CDT IMPRESSION: 1. ??Right hepatic lobe hypoechoic observations corresponding to the known liver metastases. Many of the known hepatic metastases are not discretely visualized on this study. 2. ??Hepatic steatosis. Narrative 09/18/2023 10:27 AM CDT EXAM: US ABDOMEN COMPLETE LOCATION: [facility] DATE: 09/18/2023 INDICATION: Secondary malignant neoplasm of liver and intrahepatic bile duct. COMPARISON: MR abdomen 09/04/2023. TECHNIQUE: Complete abdominal ultrasound. FINDINGS: GALLBLADDER: Surgically removed. BILE DUCTS: No biliary dilatation. The common duct measures 5 mm. LIVER: Diffusely echogenic. Hypoechoic observations in the right hepatic lobe, the largest measuring 1.7 x 1.4 cm. RIGHT KIDNEY: Normal size. Normal echogenicity with no hydronephrosis or mass. LEFT KIDNEY: Normal size. Normal echogenicity with no hydronephrosis or mass. SPLEEN: Normal. PANCREAS: The visualized portions are normal. AORTA: Normal in caliber. IVC: Normal where visualized. No ascites. Procedure Note Fish Saxena MD - 09/18/2023 EXAM: US ABDOMEN COMPLETE LOCATION: [facility] DATE: 09/18/2023 INDICATION: Secondary malignant neoplasm of liver and intrahepatic bile duct. COMPARISON: MR abdomen 09/04/2023. TECHNIQUE: Complete abdominal ultrasound. FINDINGS: GALLBLADDER: Surgically removed. BILE DUCTS: No biliary dilatation. The common duct measures 5 mm. LIVER: Diffusely echogenic. Hypoechoic observations in the right hepatic lobe, the largest measuring 1.7 x 1.4 cm. RIGHT KIDNEY: Normal size. Normal echogenicity with no hydronephrosis or mass. LEFT KIDNEY: Normal size. Normal echogenicity with no hydronephrosis or mass. SPLEEN: Normal. PANCREAS: The visualized portions are normal. AORTA: Normal in caliber. IVC: Normal where visualized. No ascites. IMPRESSION: IMPRESSION: 1. Right hepatic lobe hypoechoic observations corresponding to the known liver metastases. Many of the known hepatic metastases are not discretely visualized on this study. 2. Hepatic steatosis. Emely Levi MD [place] * SCAN-RADIOLOGY REPORT (09/13/2023 12:00 AM CDT) Anatomical Region Laterality Modality Other Scanner OTHER * SCAN-OPERATIVE/PROCEDURE REPORT (09/13/2023 12:00 AM CDT) Scanner OTHER * MR ABDOMEN WWO (09/04/2023 10:07 AM CDT) Anatomical Region Laterality Modality Abdomen, LIVER, PANCREAS, KIDNEYS, AORTA Magnetic Resonance 09/05/2023 2:04 PM CDT Narrative 09/05/2023 2:04 PM CDT For Patients: ??As a result of the Cures Act, medical imaging exams and procedure reports are released immediately into your electronic medical record. ??You may view this report before your referring provider. ??If you have questions, please contact your health care provider. INDICATION: Choroidal malignant melanoma. Liver lesion. COMPARISON: Abdominal MRIs dated 12 June 2023 and 13 March 2023. TECHNIQUE: Abdominal MRI with T1 in- and out of phase, T2, diffusion weighted, and progressively delayed post-contrast images. Intravenous gadolinium administered. FINDINGS: No fatty infiltration of the liver. Capsular/subcapsular enhancing lesion in the anterior aspect of segment 2 of the liver measures 1.5 x 0.8 cm is unchanged. Scattered other small lesions in the liver, most of which are only visible on the diffusion-weighted images, are increased in size and number and were only barely visible on the previous studies, with the largest located in the posterior aspect of segment 6 measuring 1.2 cm. No focal abnormalities identified in the visualized portions of the spleen, pancreas, adrenal glands, and kidneys. No hydronephrosis. No adenopathy. 6 mm subcutaneous lesion in the midline anterior lower chest shows restricted diffusion and is slightly increased in size. Impression : 1. Scattered liver metastases are worsened. 2. Small subcutaneous possible metastasis in the midline anterior lower chest is slightly increased in size. Dictated by Jarret Cooney MD @ 09/05/2023 2:04:47 PM (Electronically Signed) Procedure Note Jarret Cooney MD - 09/05/2023 For Patients: As a result of the Cures Act, medical imagingexams and procedure reports are released immediately into your electronicmedical record. You may view this report before your referring provider.If you have questions, please contact your health care provider. INDICATION: Choroidal malignant melanoma. Liver lesion. COMPARISON: Abdominal MRIs dated 12 June 2023 and 13 March 2023. TECHNIQUE: Abdominal MRI with T1 in- and out of phase, T2, diffusion weighted, andprogressively delayed post-contrast images. Intravenous gadoliniumadministered. FINDINGS: No fatty infiltration of the liver. Capsular/subcapsular enhancing lesion in the anterior aspect of segment 2of the liver measures 1.5 x 0.8 cm is unchanged. Scattered other small lesions in the liver, most of which are only visibleon the diffusion-weighted images, are increased in size and number andwere only barely visible on the previous studies, with the largest locatedin the posterior aspect of segment 6 measuring 1.2 cm. No focal abnormalities identified in the visualized portions of thespleen, pancreas, adrenal glands, and kidneys. No hydronephrosis. Noadenopathy. 6 mm subcutaneous lesion in the midline anterior lower chest showsrestricted diffusion and is slightly increased in size. Impression : 1. Scattered liver metastases are worsened. 2. Small subcutaneous possible metastasis in the midline anterior lowerchest is slightly increased in size. Dictated by Jarret Cooney MD @ 09/05/2023 2:04:47 PM (Electronically Signed) Emely Levi MD MR * CT CHEST WO (09/04/2023 9:15 AM CDT) Anatomical Region Laterality Modality CHEST, THORAX, HEART Computed To mography 09/04/2023 9:54 AM CDT Impressions 09/04/2023 9:54 AM CDT 1. Enlarging subcuticular density in the anterior chest. Given the current history, a subcuticular metastasis is not excluded. Consider correlation with biopsy. 2. No other interval change from the previous. Please note that all CT scans at this facility use dose modulation, iterative reconstruction, and/or weight-based dosing when appropriate to reduce radiation dose to as low as reasonably achievable. Dictated by Vinod Peralta MD @ 09/04/2023 9:54:33 AM (Electronically Signed) Narrative 09/04/2023 9:54 AM CDT For Patients: ??As a result of the 21st Century Cures Act, medical imaging exams and procedure reports are released immediately into your electronic medical record. ??You may view this report before your referring provider. ??If you have questions, please contact your health care provider. INDICATION: Choroidal malignant melanoma TECHNIQUE: CT chest without contrast. COMPARISON: CT chest without contrast 06/12/2023 FINDINGS: Cardiovascular structures: Heart size is normal. Thoracic aorta and main pulmonary artery are normal in caliber. Redemonstrated atherosclerotic calcification of the coronary arteries. Mediastinum and lis: No sign of mass or adenopathy. Lungs: Clear. No pulmonary nodules, mass or consolidation. Pleura and pericardium: No effusions. Chest wall and axilla: Enlarging subcuticular density in the anterior chest measures 9 x 9 x 10 mm, best noted on series 2, image 57 and series 5, image 62. This may represent a lymph node. Given the history, a biopsy may be appropriate. No other subcuticular lesions. No axillary lymphadenopathy. Bones: Degenerative spine. Small focal sclerosis in the body of T10 and T12 unchanged from multiple previous studies. No suspicious lytic or osteoblastic lesions. Upper abdomen: Cholecystectomy. Otherwise unremarkable. Procedure Note Ernst Peralta MD - 09/04/2023 For Patients: As a result of the Cures Act, medical imagingexams and procedure reports are released immediately into your electronicmedical record. You may view this report before your referring provider.If you have questions, please contact your health care provider. INDICATION: Choroidal malignant melanoma TECHNIQUE: CT chest without contrast. COMPARISON: CT chest without contrast 06/12/2023 FINDINGS: Cardiovascular structures: Heart size is normal. Thoracic aorta and mainpulmonary artery are normal in caliber. Redemonstrated atheroscleroticcalcification of the coronary arteries. Mediastinum and lis: No sign of mass or adenopathy. Lungs: Clear. No pulmonary nodules, mass or consolidation. Pleura and pericardium: No effusions. Chest wall and axilla: Enlarging subcuticular density in the anteriorchest measures 9 x 9 x 10 mm, best noted on series 2, image 57 and series5, image 62. This may represent a lymph node. Given the history, a biopsymay be appropriate. No other subcuticular lesions. No axillarylymphadenopathy. Bones: Degenerative spine. Small focal sclerosis in the body of T10 andT12 unchanged from multiple previous studies. No suspicious lytic orosteoblastic lesions. Upper abdomen: Cholecystectomy. Otherwise unremarkable. IMPRESSION: 1. Enlarging subcuticular density in the anterior chest. Given the currenthistory, a subcuticular metastasis is not excluded. Consider correlationwith biopsy. 2. No other interval change from the previous. Please note that all CT scans at this facility use dose modulation,iterative reconstruction, and/or weight-based dosing when appropriate toreduce radiation dose to as low as reasonably achievable. Dictated by Vinod Peralta MD @ 09/04/2023 9:54:33 AM (Electronically Signed) Emely Levi MD CT * CBC W PLT NO DIFF (09/04/2023 9:01 AM CDT) WHITE BLOOD COUNT 6.2 4.5 - 11.0 thou/cu mm 09/04/2023 9:09 AM [facility] RED BLOOD COUNT 4.88 4.00 - 5.20 mil/cu mm 09/04/2023 9:09 AM [facility] HEMOGLOBIN 15.1 12.0 - 16.0 g/dL 09/04/2023 9:09 AM [facility] HEMATOCRIT 45.4 33.0 - 51.0 % 09/04/2023 9:09 AM [facility] MCV 93 80 - 100 fL 09/04/2023 9:09 AM [facility] MCH 30.9 26.0 - 34.0 pg 09/04/2023 9:09 AM [facility] MCHC 33.3 32.0 - 36.0 g/dL 09/04/2023 9:09 AM [facility] RDW 14.2 11.5 - 15.5 % 09/04/2023 9:09 AM [facility] PLATELET COUNT 323 140 - 440 thou/cu mm 09/04/2023 9:09 AM [facility] MPV 8.5 6.5 - 11.0 fL 09/04/2023 9:09 AM [facility] Blood BLOOD SPECIMEN / Unknown Venipuncture / Unknown 09/04/2023 9:01 AM CDT 09/04/2023 9:01 AM [facility] - 09/04/2023 9:09 AM T This procedure was originally ordered at [facility]. Moon Lyon MD HEMATOLOGY [facility] [address] [place] [address] * (ABNORMAL) COMP METABOLIC PANEL (09/04/2023 8:57 AM T) SODIUM 143 136 - 145 mmol/L 09/04/2023 9:23 AM [facility] POTASSIUM 5.2(H) 3.5 - 5.1 mmol/L 09/04/2023 9:23 AM [facility] CHLORIDE 107 98 - 107 mmol/L 09/04/2023 9:23 AM [facility] CO2,TOTAL 28 22 - 29 mmol/L 09/04/2023 9:23 AM [facility] ANION GAP 8 5 - 18 09/04/2023 9:23 AM [facility] GLUCOSE 109(H) 70 - 99 mg/dL 09/04/2023 9:23 AM [facility] CALCIUM 9.8 8.6 - 10.0 mg/dL 09/04/2023 9:23 AM [facility] BUN 21(H) 6 - 20 mg/dL 09/04/2023 9:23 AM [facility] CREATININE 0.73 0.50 - 0.90 mg/dL 09/04/2023 9:23 AM [facility] BUN/CREAT RATIO 29(H) 10 - 20 9:23 AM [facility] eGFR >90 >90 mL/min/1.7 3m2 09/04/2023 9:23 AM [facility] Comment:As of 2021, eG FR is calculated by the CKD-EPI creatinine equation without race adjustment. ??eGFR can be influenced by muscle mass, exercise, and diet. ??The reported eGFR is an estimation only and is only applicable if the renal function is stable. ALBUMIN 4.3 4.0 - 4.9 g/dL 09/04/2023 9:23 AM [facility] PROTEIN,TOTAL 6.9 6.0 - 8.0 g/dL 09/04/2023 9:23 AM T [facility] BILIRUBIN,TOTAL 0.5 0.0 - 1.2 mg/dL 09/04/2023 9:23 AM T [facility] ALK PHOSPHATASE 86 35 - 104 IU/L 09/04/2023 9:23 AM [facility] ALT (SGPT) 25 10 - 35 IU/L 09/04/2023 9:23 AM [facility] AST (SGOT) 26 10 - 35 IU/L 09/04/2023 9:23 AM [facility] Blood BLOOD SPECIMEN / Unknown Venipuncture / Unknown 09/04/2023 8:57 AM CDT 09/04/2023 9:01 AM CDT Evidjonny Levi MD CHEMISTRY [facility] [address] [place] [address] * (ABNORMAL) LIPID PANEL W REFLEX MEASURED LDL ([id number]) (08/24/2023 10:34 AM [facility] CLERK) CHOLESTEROL,TOTAL 183 100 - 199 mg/dL 08/24/2023 11:09 AM [facility] Comment: Cholesterol, Total Reference Ranges Desirable <200 mg/dL Borderline 200-239 mg/dL High >=240 mg/dL TRIGLYCERIDES 189(H) <150 mg/dL 08/24/2023 11:09 AM [facility] HDL CHOLESTEROL 67 >40 mg/dL 11:09 AM [facility] NON-HDL CHOLESTEROL 116 <145 mg/dl 08/24/2023 11:09 AM [facility] CHOL/HDL RATIO 2.73 <4.50 08/24/2023 11:09 AM [facility] LDL CHOLESTEROL 78 <=130 mg/dL 08/24/2023 11:09 AM [facility] VLDL CHOLESTEROL 38(H) <=30 mg/dL 08/24/2023 11:09 AM [facility] PROVIDER ORDERED STATUS RANDOM 08/24/2023 11:09 AM [facility] Blood BLOOD SPECIMEN / Unknown Venipuncture / Unknown 08/24/2023 10:34 AM [facility] [place] [employer] 08/24/2023 10:35 AM [facility] Ramos Rossi MD CHEMISTRY Performing Organization Address City/[facility]/ZIP Co de Phone Number [facility] [address] [place] [address] * (ABNORMAL) LIPID PANEL (08/24/2023 10:34 AM [place] [place] CLERK) CHOLESTEROL,TOTAL 183 100 - 199 mg/dL 08/24/2023 11:09 AM [facility] Comment: Cholesterol, Total Reference Ranges Desirable <200 mg/dL Borderline 200-239 mg/dL High >=240 mg/dL Cholesterol, Total Reference Ranges Desirable <200 mg/dL Borderline 200-239 mg/dL High >=240 mg/dL TRIGLYCERIDES 189(H) <150 mg/dL 08/24/2023 11:09 AM [facility] HDL CHOLESTEROL 67 >40 mg/dL 11:09 AM [facility] NON-HDL CHOLESTEROL 116 <145 mg/dl 08/24/2023 11:09 AM [facility] CHOL/HDL RATIO 2.73 <4.50 08/24/2023 11:09 AM [facility] LDL CHOLESTEROL 78 <=130 mg/dL 08/24/2023 11:09 AM [facility] VLDL CHOLESTEROL 38(H) <=30 mg/dL 08/24/2023 11:09 AM [facility] PROVIDER ORDERED STATUS RANDOM 08/24/2023 11:09 AM [facility] Blood BLOOD SPECIMEN / Unknown Venipuncture / Unknown 08/24/2023 10:34 AM [facility] [place] [employer] 08/24/2023 10:35 AM [facility] [place] [employer] Ramos Rossi MD CHEMISTRY Performing Organization Address City/[facility]/ZIP Co de Phone Number [facility] [address] [place] [id number] * XR MAMMO DARIELA BILAT SCREEN (07/20/2023 10:54 AM [facility] [place] CLERK) Anatomical Region Laterality Modality BREASTS, Breast Left, Breast Right Bilateral Mammography Impressions 07/20/2023 11:30 AM [employer]PUTY [place] CLERK ??There is no radiographic evidence for malignancy. ??Recommend annual mammograms. MAMMOGRAM ASSESSMENT: ??ACR 1 Negative PATIENTS: You will also receive a letter with your examination results in an easy to read format. ??If you have questions about your results, please contact your referring provider. Narrative 07/20/2023 11:30 AM DEPUTY [place] CLERK For Patients: As a result of the Century Cures Act, medical imaging exams and procedure reports are released immediately into your electronic medical record. You may view this report before your referring provider. If you have questions, please contact your health care provider. XR MAMMO DARIELA BILAT SCREEN [[id number]] CLINICAL HISTORY: ??This is an asymptomatic 57 [...] architectural distortion. Moon Lyon MD MAMMO * LC HIV-1/O/2, 4TH GENERATION (09/05/2022 10:42 AM CDT) HIV Scr 4th Gen Non Reactive Non Reactive 09/07/2022 2:[address] [facility] Comment: HIV Negative HIV-1/HIV-2 antibodies and HIV-1 p24 antigen were NOT detected. There is no laboratory evidence of HIV infection. Blood BLOOD SPECIMEN / Unknown Venipuncture / Unknown 09/05/2022 10:42 AM CDT 09/05/2022 10:43 AM CDT Narrative [facility] ([facility]) - 09/07/2022 2:08 PM CDT Performed at: ??01 - [facility] [place] [facility], [place], [place] ??[id number] [employer] Business Analyst: Edgardo Kennedy MD, Phone: ??[phone] Moon Lyon MD LABORATORY [facility] ([facility]) [address] [place] [address], * COLONOSCOPY (01/10/2022 7:20 AM CDT) 01/10/2022 7:20 AM CDT Narrative Transcriptions Lydia Soria DO - 01/10/2022 8:24 AM CDT Patient Name: Latrice Thomas Procedure Date: 01/10/2022 Gender: Female Date of : 1965 Admit Type: Ambulatory Procedure: Colonoscopy Proceduralist: Lydia Soria MD [facility] Referring MD: Moon Lyon Indications/Pre-Op Diagnosis: Screening for colorectal malignant neoplasm, Last colonoscopy 10 years ago Medications: Propofol per Anesthesia Procedure Description: The patient had risks, benefits and alternatives explained to andgave informed consent. The patient had a stable cardiopulmonary status and judged an adequate candidate for conscious sedation. The endoscope [facility]-[id number] was passed through the anus and advanced to the cecum, identified by appendiceal orifice andileocecal valve. The colonoscopy was performed without difficulty. The patient tolerated the procedure well. The quality of the bowel preparationwas good. The ileocecal valve, appendiceal orifice, and rectum were photographed. Complications: No immediate complications. Estimated Blood Loss & Specimen: Estimated blood loss: none. Specimen collected - Yes and sent to Laboratory Findings: A 4 mm polyp was found in the cecum. The polyp was sessile. The polyp was removed with a hot snare. Resection and retrieval were complete. Verification of patient identification for the specimen was done. Estimated blood loss was minimal. A 6 mm polyp was found in the sigmoid colon. The polyp was semi-pedunculated. The polyp was removed with a hot snare. Resectionand retrieval were complete. Verification of patient identification forthe specimen was done. Estimated blood loss was minimal. A few small-mouthed diverticula were found in the sigmoid colon.There was evidence of an impacted diverticulum. Non-bleeding internal hemorrhoids were found during retroflexion. The hemorrhoids were Grade II (internal hemorrhoids that prolapse butreduce spontaneously). Impressions/Post-Op Diagnosis: - One 4 mm polyp in the cecum, removed with a hot snare. Resected and retrieved. - One 6 mm polyp in the sigmoid colon, removed with a hot snare. Resected and retrieved. - Diverticulosis in the sigmoid colon. There was evidence of animpacted diverticulum. - Non-bleeding internal hemorrhoids. Recommendation: - Discharge patient to home. - Patient has a contact number available for emergencies. The signsand symptoms of potential delayed complications were discussed with the patient. Return to normal activities tomorrow. Written discharge instructions were provided to the patient. - High fiber diet. - Continue present medications. - Await pathology results. - Repeat colonoscopy in 5-10 years for surveillance based onpathology results. Moderate Sedation: Moderate (conscious) sedation was personally administered by an anesthesia professional. The following parameters were monitored:oxygen saturation, heart rate, blood pressure, and response to care. Lydia Soria MD 01/10/2022 8:24:22 AM This report has been signed electronically. Note Initiated On: 01/10/2022 7:20 AM Lydia Soria DO PROCEDURE ORD * ANTI HCV (06/28/2019 9:41 AM [facility] [place] CLERK) HEPATITIS C ANTIBODY Non-React celio Non-React celio 06/28/2019 1:29 PM [facility]PUTY [place] CLERK [facility] Comment:Antibodies to HCV no t detected; does not exclude the possibility of exposure to HCV. Blood BLOOD SPECIMEN / Unknown Butterfly / Unknown 06/28/2019 9:41 AM [facility] [place] CLERK 06/28/2019 9:41 AM [facility] [place] CLERK Moon Lyon MD SEND OUTS [facility] [address] [place] [address], [place] from Last 3 Months or Most Recently Relevant to Health Maintenance Advance Directives * Full Code (Latest Code Status on File) Date Activated Date Inactivated Comments 01/10/2022 7:00 AM 01/10/2022 11:07 AM Question Answer Comments Code Status Discussion: Discussed * Full Code Date Activated Date Inactivated Comments 02/15/2017 6:53 AM 02/15/2017 11:38 AM Care Teams Timber Trimmer Relationship Specialty Start Date End Date Moon Lyon MD [address] [facility] [place] [address] PCP - General Family Practice 08/04/15
--- OUTSIDE RECORDS SUMMARY | 2023-11-16 09:51 | XMS_ITS | Encounter Summary ---
Author Organization [place] Address [facility] [place] [address] Care Team Providers Care Correction Officer Head Name Role Phone Molina Warren MD Primary Care Provider [phone] Louise Mustafa RN Unavailable [phone] Radha Clark RN Unavailable [phone] Emely Bauman MD Unavailable Unava ilable Emely Bauman MD Unavailable Unava ilable Chio Wilson RN Unavailable Unavailable Encounter Details Date Type Department Care Team (Late st Contact Info) Description 04/07/2022 [facility] [address] [place] [address] Emely Bauman MD Social History Tobacco Use Types Packs/Day Years Used Date Smoking Tobacco: Never Smokeless Tobacco: Never Sex and Gender Information Value Date Recorded Sex Assigned at Female 08/22/2021 11:54 AM FIELD SALES SPECIALIST Gender Identity Female 08/22/2021 11:54 AM FIELD SALES SPECIALIST Sexual Orientation Straight 08/22/2021 11 :54 AM FIELD SALES SPECIALIST documented as of this encounter Plan of Treatment Not on file documented as of this encounter Visit Diagnoses Not on filedocumented in this encounter Care Teams Correction Officer Head Relationship Specialty Start Date End Date Molina Warren MD [facility] [address] [place] [address] PCP - General Hematology & Oncology 09/02/21 Louise Mustafa, RN Specialty University Teacher Hematology & Oncology 09/02/21 Radha Clark RN Specialty University Teacher Hematology & Oncology 11/30/21 02/19/23 Emely Bauman MD Hematology & Oncology 11/30/21 Emely Bauman MD Assigned Cancer Care Provider 12/31/21 Chio Wilson, LETITIA Specialty University Teacher Hematology & Oncology 03/06/23 10/23/23 documented as of this encounter
== END 2023-11-16 09:49 | disposition home or self-care (01) ==
LOC: INJ CL 09:49
PROVIDERS: PCP Family Medicine; Visit Provider Family Medicine
DX: M47.816 Spondylosis without myelopathy or radiculopathy, lumbar region (principal)
CPT/HCPCS: 64493; 64494; 64495; J0702; Q9966

== ENCOUNTER 2024-02-26 09:42 | Outpatient (CLI) | payer BC, SELFPAY ==
--- OUTSIDE RECORDS SUMMARY | 2024-02-26 09:48 | XMS_ITS | Encounter Summary ---
Author Organization [place] Address [address] [place] [address]. [place] [address] Care Team Providers Care President Educational Institution Name Role Phone Molina Warren MD Primary Care Provider [phone] Louise Mustafa RN Unavailable [phone] Radha Clark RN Unavailable [phone] Emely Bauman MD Unavailable + [phone] Emely Bauman MD Unavailable + [phone] Chio Wilson RN Unavailable Unavailable Encounter Details Date Type Department Care Team (Late st Contact Info) Description 12/06/2022 MyC Medical Advice [facility] [address] [place] [address] Emely Bauman MD [address] [place], [place] [id number] Social History Tobacco Use Types Packs/Day Years Used Date Smoking Tobacco: Never Smokeless Tobacco: Never Sex and Gender Information Value Date Recorded Sex Assigned at Female 08/22/2021 11:54 AM PIPELINE DISPATCH OPERATOR Gender Identity Female 08/22/2021 11:54 AM PIPELINE DISPATCH OPERATOR Sexual Orientation Straight 08/22/2021 11 :54 AM PIPELINE DISPATCH OPERATOR documented as of this encounter Plan of Treatment Not on file documented as of this encounter Visit Diagnoses Not on filedocumented in this encounter Care Teams President Educational Institution Relationship Specialty Start Date End Date Molina Warren MD [facility] [address] [place] [address], [place] [address] PCP - General Hematology & Oncology 09/02/21 Louise Mustafa, LETITIA Specialty Dough Molder Hematology & Oncology 09/02/21 Radha Clark RN Specialty Dough Molder Hematology & Oncology 11/30/21 02/19/23 Emely Bauman MD Hematology & Oncology 11/30/21 Emely Bauman MD Assigned Cancer Care Provider 12/31/21 Chio Wilson, LETITIA Specialty Dough Molder Hematology & Oncology 03/06/23 10/23/23 documented as of this encounter
--- OUTSIDE RECORDS SUMMARY | 2024-02-26 09:48 | XMS_ITS | Encounter Summary ---
Author Organization [place] Address [address] [place] [address]. [place] [address] Care Team Providers Care Pockets And Pieces Necktie Operator Name Role Phone Molina Warren MD Primary Care Provider [phone] Louise Mustafa RN Unavailable Radha Clark RN Unavailable [phone] Emely Bauman MD Unavailable + [phone] Emely Bauman MD Unavailable + [phone] Chio Wilson RN Unavailable Unavailable Encounter Details Date Type Department Care Team (Late st Contact Info) Description 09/05/2022 MyC Medical Advice [facility] [address] [place] [address] Emely Bauman MD [address] [place], [place] [id number] Social History Tobacco Use Types Packs/Day Years Used Date Smoking Tobacco: Never Smokeless Tobacco: Never Sex and Gender Information Value Date Recorded Sex Assigned at Female 08/22/2021 11:54 AM NEWS COMMENTATOR Gender Identity Female 08/22/2021 11:54 AM NEWS COMMENTATOR Sexual Orientation Straight 08/22/2021 11 :54 AM NEWS COMMENTATOR documented as of this encounter Plan of Treatment Not on file documented as of this encounter Visit Diagnoses Not on filedocumented in this encounter Care Teams Pockets And Pieces Necktie Operator Relationship Specialty Start Date End Date Molina Warren MD [facility] [address] [place] [address], [place] [address] PCP - General Hematology & Oncology 09/02/21 Louise Mustafa, LETITIA Specialty Networking Specialist Hematology & Oncology 09/02/21 Radha Clark RN Specialty Networking Specialist Hematology & Oncology 11/30/21 02/19/23 Emely Bauman MD Hematology & Oncology 11/30/21 Emely Bauman MD Assigned Cancer Care Provider 12/31/21 Chio Wilson, LETITIA Specialty Networking Specialist Hematology & Oncology 03/06/23 10/23/23 documented as of this encounter
--- OUTSIDE RECORDS SUMMARY | 2024-02-26 09:48 | XMS_ITS | Encounter Summary ---
Author Organization [place] Address [address] [place] [address]. [place] [address] Care Team Providers Care Svp Digital Sales Food & Cooking Name Role Phone Molina Warren MD Primary Care Provider [phone] Louise Mustafa RN Unavailable [phone] Radha Clark RN Unavailable [phone] Emely Bauman MD Unavailable + [phone] Emely Bauman MD Unavailable + [phone] Chio Wilson RN Unavailable Unavailable Encounter Details Date Type Department Care Team (Late st Contact Info) Description 02/06/2023 MyC Medical Advice [facility] [address] [place] [address] Emely Bauman MD [address] [place], [place] [id number] Social History Tobacco Use Types Packs/Day Years Used Date Smoking Tobacco: Never Smokeless Tobacco: Never Sex and Gender Information Value Date Recorded Sex Assigned at Female 08/22/2021 11:54 AM GEOTHERMAL OPERATIONS MANAGER Gender Identity Female 08/22/2021 11:54 AM GEOTHERMAL OPERATIONS MANAGER Sexual Orientation Straight 08/22/2021 11 :54 AM GEOTHERMAL OPERATIONS MANAGER documented as of this encounter Plan of Treatment Not on file documented as of this encounter Visit Diagnoses Not on filedocumented in this encounter Care Teams Svp Digital Sales Food & Cooking Relationship Specialty Start Date End Date Molina Warren MD [facility] [address] [place] [address], [place] [address] PCP - General Hematology & Oncology 09/02/21 Louise Mustafa, LETITIA Specialty Fruit Raiser Hematology & Oncology 09/02/21 Radha Clark RN Specialty Fruit Raiser Hematology & Oncology 11/30/21 02/19/23 Emely Bauman MD Hematology & Oncology 11/30/21 Emely Bauman MD Assigned Cancer Care Provider 12/31/21 Chio Wilsno, LETITIA Specialty Fruit Raiser Hematology & Oncology 03/06/23 10/23/23 documented as of this encounter
--- OUTSIDE RECORDS SUMMARY | 2024-02-26 09:48 | XMS_ITS | Encounter Summary ---
Author Organization [place] Address [facility] [place] [address] Care Team Providers Care Costume Rental Clerk Name Role Phone Molina Warren MD Primary Care Provider Louise Mustafa RN Unavailable [phone] Radha Clark RN Unavailable [phone] Emely Bauman MD Unavailable + [phone] Emely Bauman MD Unavailable + [phone] Chio Wilson RN Unavailable Unavailable Encounter Details Date Type Department Care Team (Late st Contact Info) Description 12/28/2022 MyC Medical Advice [facility] [address] [place] [address] Marie Gale Social History Tobacco Use Types Packs/Day Years Used Date Smoking Tobacco: Never Smokeless Tobacco: Never Sex and Gender Information Value Date Recorded Sex Assigned at Female 08/22/2021 11:54 AM HAT BINDER Gender Identity Female 08/22/2021 11:54 AM HAT BINDER Sexual Orientation Straight 08/22/2021 11 :54 AM HAT BINDER documented as of this encounter Plan of Treatment Not on file documented as of this encounter Visit Diagnoses Not on filedocumented in this encounter Care Teams Costume Rental Clerk Relationship Specialty Start Date End Date Molina Warren MD [facility] [address] [place] [address] PCP - General Hematology & Oncology 09/02/21 Louise Mustafa, RN Specialty Circuit Board Drafter Hematology & Oncology 09/02/21 Radha Clark RN Specialty Circuit Board Drafter Hematology & Oncology 11/30/21 02/19/23 Emely Bauman MD Hematology & Oncology 11/30/21 Emely Bauman MD Assigned Cancer Care Provider 12/31/21 Chio Wilson, LETITIA Specialty Circuit Board Drafter Hematology & Oncology 03/06/23 10/23/23 documented as of this encounter
--- OUTSIDE RECORDS SUMMARY | 2024-02-26 09:48 | XMS_ITS | Clinical Summary ---
Author Organization [place] Address [address] [place] [address] Care Team Providers Care Electric Arc Welder Name Role Phone Molina Warren MD Primary Care Provider [phone] Louise Mustafa RN Unavailable [phone] Emely Bauman MD Unavailable Emely Bauman MD Unavailable Allergies Active Allergy Reactions Criticality Noted [...] onto the skin 07/13/2021 Active nystatin (MYCOSTATIN) 531244 UNIT/GM external powder Apply 1 strip topically 07/18/2021 Active citalopram (CELEXA) 20 MG tablet Take 1 tablet (20 mg) by mouth 02/17/2022 Active jnwxtmpn-vfpsmkyug-g examethasone (MAXITROL) 3.5-18126-4.1 SUSP ophthalmic susp INSTILL 1 DROP INTO [...] (QUADRIVALENT W/PRESERVATIVES) 03/15/2019 Influenza, seasonal, injectable, PF /2 07/2015,04/22/2015,03/31/2011,2008 Measles 11/01/1976 Pneumococcal 20 valent Conju gate [...] Sex Assigned at Female 08/22/2021 11:54 AM CONTROL SPECIALIST Gender Identity Female 08/22/2021 11:54 AM CONTROL SPECIALIST Sexual Orientation Straight 08/22/2021 11 :54 AM CONTROL SPECIALIST Last Filed Vital Signs Vital Sign Reading Time Taken Comments Blood Pressure 159/97 12/22/2021 1:33 PM CDT Pulse 81 12/22/2021 1:33 PM CDT Temperature 36.7 ??C (98 ??F) 12/22/2021 1:33 PM CDT Respiratory Rate 16 12/22/2021 1:33 PM CDT Oxygen Saturation 99% 12/22/2021 1:33 PM CDT Inhaled Oxygen Concentration - - Weight 120.2 kg (265 lb) 07/06/2023 1:29 PM CONTROL SPECIALIST Height 177.8 cm (5' 10) 07/06/2023 1:29 PM CONTROL SPECIALIST Body Mass Index 38.02 07/06/2023 1:29 PM CONTROL SPECIALIST Plan of Treatment Health Maintenance Due Date Last Done Comments ADVANCE CARE PLANNING 1965 ANNUAL REVIEW OF HM ORDERS 1963 CT COLONOGRAPHY 1963 DEPRESSION ACTION PLAN 1963 FIT 1963 FLEX SIG 1963 LIPID 1963 PHQ-9 1963 sDNA (Cologuard) 1963 HIV SCREENING 10/27/1978 HEPATITIS C SCREENING 10/27/1981 PAP 10/27/1984 RSV VACCINE (1 - 1-dose 60+ series) 2023 COVID-19 Vaccine ( season) 2024 08/29/2023, 03/16/2023, 05/26/2022, Additional history exists INFLUENZA VACCINE (#1) 2024 3, 03/10/2022, 03/09/2021, Additional history exists YEARLY PREVENTIVE VISIT 07/20/2024 07/20/19 24, 07/17/2022, [...] Patients (6 to 64 Years) Completed 03/10/2022 HPV IMMUNIZATION Aged Out No longer e ligible based on patient's age to complete this topic MENINGITIS IMMUNIZATION Aged Out No l onger eligible based on patient's age to complete this topic RSV MONOCLONAL ANTIBODY Aged Out No l onger eligible based on patient's age to complete this topic Procedures Procedure Name Priority Date/Time Associated Diagnosis Comments COMPREHENSIVE METABOLIC PANEL Routine 12/22/2021 1:41 PM CDT Choroidal malignant melanoma, left (H) MA EXTERNAL IMAGING 2D SCREENING Routine 07/13/2021 12:00 AM CONTROL SPECIALIST from Last 3 Months or Most Recently Relevant to Health Maintenance Results * Comprehensive metabolic panel (12/22/2021 1:41 PM CDT) Sodium 139 133 - 144 mmol/L 12/22/2021 2:[address] [facility] Potassium 3.8 3.4 - 5.3 mmol/L 12/22/2021 2:[address] [facility] Chloride 104 94 - 109 mmol/L 12/22/2021 2:[address] [facility] Carbon Dioxide (CO2) 28 20 - 32 mmol/L 12/22/2021 2:[address] [facility] Anion Gap 7 3 - 14 mmol/L 12/22/2021 2:[address] [facility] Urea Nitrogen 17 7 - 30 mg/dL 12/22/2021 2:[address] [facility] Creatinine 0.84 0.52 - 1.04 mg/dL 12/22/2021 2:[address] [facility] Calcium 9.1 8.5 - 10.1 mg/dL 12/22/2021 2:[address] [facility] Glucose 94 70 - 99 mg/dL 12/22/2021 2:[address] [facility] Alkaline Phosphatase 82 40 - 150 U/L 12/22/2021 2:[address] [facility] AST 19 0 - 45 U/L 12/22/2021 2:[address] [facility] ALT 35 0 - 50 U/L 12/22/2021 2:[address] [facility] Protein Total 7.0 6.8 - 8.8 g/dL 12/22/2021 2:[address] [facility] Albumin 3.6 3.4 - 5.0 g/dL 12/22/2021 2:[address] [facility] Bilirubin Total 0.5 0.2 - 1.3 mg/dL 12/22/2021 2:[address] [facility] GFR Estimate 80 >60 mL/min/1.7 3m2 12/22/2021 2:[address] [facility] Comment:Effective May 262020 eGFRcr in adults is calculated using the 2020 CKD-EPI creatinine equation which includes age and gender (Eric et al., NEJM, DOI: 10.1056/CIPIfn9411067) Blood STRUCTURE OF RIGHT UPPER LIMB / Unknown Venipuncture / Unknown 12/22/2021 1:41 PM CDT 12/22/2021 1:51 PM CDT Emely Levi MD LAB - BLOOD OR DERABLES [facility] [place] [address] 1[address] [place] [address] * MA Digital Archive [place] (07/13/2021 12:00 AM CONTROL SPECIALIST) Narrative Service Account, Ob [place] - 08/05/2021 8:20 AM CONTROL SPECIALIST Images were obtained from an external facility. ??Click PACS Images hyperlink to view images. ??Textual results have been scanned into the media tab. Radiology Non-Fv Credentialed Provider I MG EXTERNAL IMAGING ORDERABLES from Last 3 Months or Most Recently Relevant to Health Maintenance Care Teams Electric Arc Welder Relationship Specialty Start Date End Date Molina Warren MD [facility] [address] [place] [address] PCP - General Hematology & Oncology 09/02/21 Louise Mustafa, RN Specialty Bicycle Subassembler Hematology & Oncology 09/02/21 Emely Bauman MD Hematology & Oncology 11/30/21 Emely Bauman MD Assigned Cancer Care Provider 12/31/21
--- OUTSIDE RECORDS SUMMARY | 2024-02-26 09:48 | XMS_ITS | Encounter Summary ---
Author Organization [place] Address [facility] [place] [address] Care Team Providers Care Drug And Alcohol Treatment Specialist Name Role Phone Molina Warren MD Primary Care Provider [phone] Louise Mustafa RN Unavailable [phone] Emely Bauman MD Unavailable + [phone] Emely Bauman MD Unavailable [phone] Chio Wilson RN Unavailable Unavailable Encounter Details Date Type Department Care Team (Late st Contact Info) Description 10/22/2023 MyC Medical Advice [facility] Interventional Radiology [address] [place] [address] Kaylyn Kiran, RN Social History Tobacco Use Types Packs/Day Years Used Date Smoking Tobacco: Never Passive Smoke Exposure: Never Smokeless Tobacco: Never PHQ-2 Answer Date Recorded PHQ-2 Score 0 07/06/2023 Adolescent Education Answer Date Record ed Getting School Help Needed Not on file 03/17 Sex and Gender Information Value Date Recorded Sex Assigned at Female 08/22/2021 11:54 AM LEATHER STRETCHER Gender Identity Female 08/22/2021 11:54 AM LEATHER STRETCHER Sexual Orientation Straight 08/22/2021 11 :54 AM LEATHER STRETCHER documented as of this encounter Plan of Treatment Not on file documented as of this encounter Visit Diagnoses Not on filedocumented in this encounter Care Teams Drug And Alcohol Treatment Specialist Relationship Specialty Start Date End Date Molina Warren MD [facility] [address] [place] [address] PCP - General Hematology & Oncology 09/02/21 Louise Mustafa, LETITIA Specialty Snag Grinder Hematology & Oncology 09/02/21 Emely Bauman MD Hematology & Oncology 11/30/21 Emely Bauman MD Assigned Cancer Care Provider 12/31/21 Chio Wilson, LETITIA Specialty Snag Grinder Hematology & Oncology 03/06/23 10/23/23 documented as of this encounter
--- OUTSIDE RECORDS SUMMARY | 2024-02-26 09:48 | XMS_ITS | Encounter Summary ---
Author Organization [place] Address [facility] [place] [address] Care Team Providers Care Gas Meter Repairer Name Role Phone Molina Warren MD Primary Care Provider [phone] Louise Mustafa RN Unavailable [phone] Emely Bauman MD Unavailable + [phone] Emely Bauman MD Unavailable [phone] Chio Wilson RN Unavailable Unavailable Encounter Details Date Type Department Care Team (Late st Contact Info) Description 03/30/2023 MyC Medical Advice [facility] [address] [place] [address] Chio Wilson, RN Social History Tobacco Use Types Packs/Day Years Used Date Smoking Tobacco: Never Smokeless Tobacco: Never Adolescent Education Answer Date Record ed Getting School Help Needed Not on file 03/17 Sex and Gender Information Value Date Recorded Sex Assigned at Female 08/22/2021 11:54 AM CONDUIT HELPER Gender Identity Female 08/22/2021 11:54 AM CONDUIT HELPER Sexual Orientation Straight 08/22/2021 11 :54 AM CONDUIT HELPER documented as of this encounter Plan of Treatment Not on file documented as of this encounter Visit Diagnoses Not on filedocumented in this encounter Care Teams Gas Meter Repairer Relationship Specialty Start Date End Date Molina Warren MD [facility] [address] [place] [address] PCP - General Hematology & Oncology 09/02/21 Louise Mustafa, LETITIA Specialty Medical Claims Manager Hematology & Oncology 09/02/21 Emely Bauman MD Hematology & Oncology 11/30/21 Emeyl Bauman MD Assigned Cancer Care Provider 12/31/21 Chio Wilson, LETITIA Specialty Medical Claims Manager Hematology & Oncology 03/06/23 10/23/23 documented as of this encounter
--- OUTSIDE RECORDS SUMMARY | 2024-02-26 09:48 | XMS_ITS | Encounter Summary ---
Author Organization [place] Address [address] [place] [address]. [place] [address] Care Team Providers Care Final Inspector Name Role Phone Molina Warren MD Primary Care Provider [phone] Louise Mustafa RN Unavailable [phone] Radha Clark RN Unavailable [phone] Emely Bauman MD Unavailable + [phone] Emely Bauman MD Unavailable + [phone] Chio Wilson RN Unavailable Unavailable Encounter Details Date Type Department Care Team (Late st Contact Info) Description 08/08/2022 MyC Medical Advice [facility] [address] [place] [address] Emely Bauman MD [address] [place], [place] [id number] Social History Tobacco Use Types Packs/Day Years Used Date Smoking Tobacco: Never Smokeless Tobacco: Never Sex and Gender Information Value Date Recorded Sex Assigned at Female 08/22/2021 11:54 AM MEDICAL LABORATORY TECHNICIANS Gender Identity Female 08/22/2021 11:54 AM MEDICAL LABORATORY TECHNICIANS Sexual Orientation Straight 08/22/2021 11 :54 AM MEDICAL LABORATORY TECHNICIANS documented as of this encounter Plan of Treatment Not on file documented as of this encounter Visit Diagnoses Not on filedocumented in this encounter Care Teams Final Inspector Relationship Specialty Start Date End Date Molina Warren [place] [facility] [address] [place] [address], [place] [address] PCP - General Hematology & Oncology 09/02/21 Louise Mustafa, LETITIA Specialty Software Qa Manager Hematology & Oncology 09/02/21 Radha Clark RN Specialty Software Qa Manager Hematology & Oncology 11/30/21 02/19/23 Emely Bauman MD Hematology & Oncology 11/30/21 Emely Bauman MD Assigned Cancer Care Provider 12/31/21 Chio Wilson, LETITIA Specialty Software Qa Manager Hematology & Oncology 03/06/23 10/23/23 documented as of this encounter
--- OUTSIDE RECORDS SUMMARY | 2024-02-26 09:48 | XMS_ITS | Referral Summary ---
Author Organization [facility] Address [address] [place] [id number] Care Team Providers Care Lead Oracle Developer Name Role Phone Molina Warren MD Primary Care Provider [phone] Louise Mustafa RN Unavailable [phone] Emely Bauman MD Unavailable Emely Bauman [...] onto the skin 07/13/2021 Active nystatin (MYCOSTATIN) 177899 UNIT/GM external powder Apply 1 strip topically 07/18/2021 Active citalopram (CELEXA) 20 MG tablet Take 1 tablet (20 mg) by mouth 02/17/2022 Active ajitzxgu-tcllokkaj-v examethasone (MAXITROL) 3.5-69341-6.1 SUSP ophthalmic susp INSTILL 1 DROP INTO [...] Sex Assigned at Female 08/22/2021 11:54 AM VISUAL INSPECTOR Gender Identity Female 08/22/2021 11:54 AM VISUAL INSPECTOR Sexual Orientation Straight 08/22/2021 11 :54 AM VISUAL INSPECTOR Last Filed Vital Signs Vital Sign Reading Time Taken Comments Blood Pressure 159/97 12/22/2021 1:33 PM CDT Pulse 81 12/22/2021 1:33 PM CDT Temperature 36.7 ??C (98 ??F) 12/22/2021 1:33 PM CDT Respiratory Rate 16 12/22/2021 1:33 PM CDT Oxygen Saturation 99% 12/22/2021 1:33 PM CDT Inhaled Oxygen Concentration - - Weight 120.2 kg (265 lb) 07/06/2023 1:29 PM VISUAL INSPECTOR Height 177.8 cm (5' 10) 07/06/2023 1:29 PM VISUAL INSPECTOR Body Mass Index 38.02 07/06/2023 1:29 PM VISUAL INSPECTOR Plan of Treatment Not on file Procedures Procedure Name Priority Date/Time Associated Diagnosis Comments COMPREHENSIVE METABOLIC PANEL Routine 12/22/2021 1:41 PM CDT Choroidal malignant melanoma, left (H) MA EXTERNAL IMAGING 2D SCREENING Routine 07/13/2021 12:00 AM VISUAL INSPECTOR from Last 3 Months or Most Recently Relevant to Health Maintenance Results * Comprehensive metabolic panel (12/22/2021 1:41 PM CDT) Sodium 139 133 - 144 mmol/L 12/22/2021 2:21 PM CDT [facility] Potassium 3.8 3.4 - 5.3 mmol/L 12/22/2021 2:21 PM CDT [facility] Chloride 104 94 - 109 mmol/L 12/22/2021 2:21 PM CDT [facility] Carbon Dioxide (CO2) 28 20 - 32 mmol/L 12/22/2021 2:21 PM CDT [facility] Anion Gap 7 3 - 14 mmol/L 12/22/2021 2:21 PM CDT [facility] Urea Nitrogen 17 7 - 30 mg/dL 12/22/2021 2:21 PM CDT [facility] Creatinine 0.84 0.52 - 1.04 mg/dL 12/22/2021 2:21 PM CDT [facility] Calcium 9.1 8.5 - 10.1 mg/dL 12/22/2021 2:21 PM CDT [facility] Glucose 94 70 - 99 mg/dL 12/22/2021 2:21 PM CDT [facility] Alkaline Phosphatase 82 40 - 150 U/L 12/22/2021 2:21 PM CDT [facility] AST 19 0 - 45 U/L 12/22/2021 2:21 PM CDT [facility] ALT 35 0 - 50 U/L 12/22/2021 2:21 PM CDT [facility] Protein Total 7.0 6.8 - 8.8 g/dL 12/22/2021 2:21 PM CDT [facility] Albumin 3.6 3.4 - 5.0 g/dL 12/22/2021 2:21 PM CDT [facility] Bilirubin Total 0.5 0.2 - 1.3 mg/dL 12/22/2021 2:21 PM CDT [facility] GFR Estimate 80 >60 mL/min/1.7 3m2 12/22/2021 2:21 PM CDT [facility] Comment:Effective May 262020 eGFRcr in adults is calculated using the 2020 CKD-EPI creatinine equation which includes age and gender (Eric et al., NEJ, DOI: 10.1056/LFBWgt2747770) Blood STRUCTURE OF RIGHT UPPER LIMB / Unknown Venipuncture / Unknown 12/22/2021 1:41 PM CDT 12/22/2021 1:51 PM CDT Emely Levi MD LAB - BLOOD OR DERABLES [facility] - [address] [place] [address] * MA Digital Archive [facility] (07/13/2021 12:00 AM VISUAL INSPECTOR) Narrative Service Account, [facility] - 08/05/2021 8:20 AM VISUAL INSPECTOR Images were obtained from an external facility. ??Click PACS Images hyperlink to view images. ??Textual results have been scanned into the media tab. Radiology Non-Fv Credentialed Provider I [facility] EXTERNAL IMAGING ORDERABLES from Last 3 Months or Most Recently Relevant to Health Maintenance Care Teams Lead Oracle Developer Relationship Specialty Start Date End Date Molina Warren MD [facility] [address] [place] [address] PCP - General Hematology & Oncology 09/02/21 Louise Mustafa, LETITIA Specialty News Reel Cameraman Hematology & Oncology 09/02/21 Emely Bauman MD Hematology & Oncology 11/30/21 Emely Bauman MD Assigned Cancer Care Provider 12/31/21
--- OUTSIDE RECORDS SUMMARY | 2024-02-26 09:48 | XMS_ITS | Encounter Summary ---
Author Organization [facility] Address [address] [place] [address]. [place] [address] Care Team Providers Care Program Manager Environmental Planning Name Role Phone Molina Warren MD Primary Care Provider [phone] Louise Mustafa RN Unavailable [phone] Radha Clark RN Unavailable [phone] Emely Bauman MD Unavailable [phone] Emely Bauman MD Unavailable [phone] Chio Wilson RN Unavailable Unavailable Encounter Details Date Type Department Care Team (Late st Contact Info) Description 11/24/2022 MyC Medical Advice [facility] [address] [place] [address] Emely Bauman MD [address] [place], [place] [id number] Social History Tobacco Use Types Packs/Day Years Used Date Smoking Tobacco: Never Smokeless Tobacco: Never Sex and Gender Information Value Date Recorded Sex Assigned at Female 08/22/2021 11:54 AM TELEPHONE RECORDER Gender Identity Female 08/22/2021 11:54 AM TELEPHONE RECORDER Sexual Orientation Straight 08/22/2021 11 :54 AM TELEPHONE RECORDER documented as of this encounter Plan of Treatment Not on file documented as of this encounter Visit Diagnoses Not on filedocumented in this encounter Care Teams Program Manager Environmental Planning Relationship Specialty Start Date End Date Molina [facility] [id number] [place] [address], [place] [address] PCP - General Hematology & Oncology 09/02/21 Louise Mustafa, LETITIA Specialty Blow Torch Operator Hematology & Oncology 09/02/21 Radha Clark RN Specialty Blow Torch Operator Hematology & Oncology 11/30/21 02/19/23 Emely Bauman MD Hematology & Oncology 11/30/21 Emely Bauman MD Assigned Cancer Care Provider 12/31/21 Chio Wilson, LETITIA Specialty Blow Torch Operator Hematology & Oncology 03/06/23 10/23/23 documented as of this encounter
--- OUTSIDE RECORDS SUMMARY | 2024-02-26 09:49 | XMS_ITS | Clinical Summary ---
Author Organization [facility] Address [place], [place] [address] Care Team Providers Care Cardiograph Operator Name Role Phone Moon Lyon MD Primary Care Provider [phone] Radha Cisneros RN Unavailable [phone] Emely Bauman MD Unavailable [phone] Allergies Active Allergy Reactions Criticality Noted Date Comments Propoxyphene-Acetaminophen Nausea Only 05/04/20 06 Pitavastatin Myalgia 07/06/2023 Rosuvastatin Myalgia 07/06/2023 Sulfa (Sulfonamide Antibiotics) Nausea And Vomiting 05/04/2006 Medications Medication Sig Dispensed Refills Start Date End Date Status MULTIVITAMIN ORAL None Entered 0 Activ e vitamin B complex (VITAMINS B COMPLEX) tablet Take 1 tablet by mouth once daily. 0 2 Active Calcium-Magnesium tablet Take 1 tablet by mouth. 0 2 Active omega-3 fatty acids-vitamin E (FISH OIL) 1,000 mg cap Take by mouth. 0 2 Active soy-blk cohosh-green tea-yerba 56-40-130 mg tab Take by mouth once daily. 0 7 Active scopolamine 1mg over 3 days (Transderm-Scop) patchIndications:Motion sickness, subsequent encounter Apply 1 Patch on dry, clean, hairless skin every 72 hours. 4 Patch 2 Active zinc 50 mg tablet Take 1 Tablet (50 mg) by mouth once daily. 0 3 Active cholecalciferol, Vitamin D3, (Vitamin D-3) 5,000 unit tab tabletIndications:Vitami n D deficiency Take 1 Tablet (5,000 units) by mouth once daily. 90 Tablet 3 3 Active Nyamyc powderIndications:Candid al dermatitis APPLY TO AFFECTED AREA(S) TOPICALLY TWICE DAILY 180 g 3 3 Active propranolol ER (INDERAL LA) 60 mg Cs24 Sustained-Release capsule Take 1 Capsule by mouth once daily. 3 Active atorvastatin (LIPITOR) 40 mg tabletIndications:Pure hypercholesterolemia Take 1 Tablet (40 mg) by mouth once daily. 90 Tablet 3 4 Active ezetimibe (ZETIA) 10 mg tabletIndications:CAD in [place] artery Take 1 Tablet (10 mg) by mouth once daily. 90 Tablet 3 4 Active citalopram (CELEXA) 20 mg tabletIndications:Anxiet y TAKE 1 TABLET BY MOUTH ONCE DAILY 90 Tablet 3 4 Active buPROPion (WELLBUTRIN SR) 150 mg Sustained-Release tabletIndications:Depres carmen, unspecified depression type TAKE 2 TABLETS IN THE MORNING AND 1 TABLET IN THE EVENING 270 Tablet 2 4 Active levothyroxine (SYNTHROID) 125 mcg tabletIndications:Hypoth yroidism (acquired) Take 1 Tablet (125 mcg) by mouth once daily. 90 Tablet 2 4 Active baclofen (LIORESAL) 10 mg tabletIndications:Muscle spasm of back Take 1 Tablet (10 mg) by mouth 2 times daily if needed (muscle pain). Do NOT take with flexeril 90 Tablet 3 4 Active nitroglycerin 0.2% in white petrolatum rectal ointment ([facility] AMB MIX)Indications:Anal fissure Insert rectally two times daily. Apply small amount to perianal area topically. 30 g 4 Active zolpidem CR (AMBIEN CR) 6.25 mg Extended-Release tabletIndications:Insomn ia, idiopathic Take 1 Tablet (6.25 mg) by mouth at bedtime if needed for Sleep. 90 Tablet 4 Active esomeprazole (NEXIUM) 40 mg capsuleIndications:Chron ic GERD Take 2 Capsules (80 mg) by mouth once daily before a meal. 180 Capsule 2 4 Active pantoprazole (PROTONIX) 20 mg tabletIndications:Metast ases to the liver (HC) Take 2 Tablets (40 mg) by mouth once daily. 30 Tablet 4 Active ondansetron (Zofran) 4 mg tabletIndications:Spleni c artery aneurysm (HC) Take 1 Tablet (4 mg) by mouth every 8 hours if needed for Nausea/Vomiti ng. 9 Tablet 4 Active oxyCODONE (ROXICODONE) 5 mg immediate release tabletIndications:Metast ases to the liver (HC) Take 1-2 tablets (5-10 mg) by mouth every 4-6 hours as needed for pain 15 Tablet 4 Active esomeprazole (NEXIUM) 40 mg capsuleIndications:Chron ic GERD Take 2 Capsules (80 mg) by mouth once daily before a meal. 180 Capsule 3 3 02/05/20 24 Discontinu ed(Reorder (E-cancel not sent)) zolpidem CR (AMBIEN CR) 6.25 mg Extended-Release tabletIndications:Insomn ia, idiopathic Take 1 Tablet (6.25 mg) by mouth at bedtime if needed for Sleep. 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 [id number] Juan Carlos Scanlon RN <No scans attached> 02/06/2024 8:22 AM CDT - 02/06/2024 3:54 PM CDT Hospital Encounter [facility] [address] [place] [id number] Jacinto Fish MD Splenic artery aneurysm (HC) (Primary Dx); Metastases to the liver (HC) Discharge Disposition: Home Self Care 02/06/2024 Travel 02/05/2024 Refill [facility] [address] [place] [address] Moon Lyon MD Refill Request (esomeprazole) 01/31/2024 Medical Messaging [facility] [address] [place] [address] Bereket Noyola MD Shot 01/18/2024 12:30 PM CDT Preop Visit [facility] [address] [place] [address] Moon Lyon MD Pre-Op Exam (Radiation 02-06-24) 01/18/2024 Travel 01/04/2024 11:00 AM CDT Telemedicine [facility] [place] [address] [facility] [address] [place] [address] Emely Bauman MD 01/04/2024 Travel 01/01/2024 9:40 AM CDT - 01/01/2024 11:59 PM CDT Hospital Encounter [facility] [address] [place] [address] 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); Choroidal malignant melanoma, left (HC) 01/01/2024 Travel 12/17/2023 Orders Only [facility] Medical Imaging [address] [place] [id number] Juan Carlos Scanlon RN <No scans attached> 12/16/2023 Refill [facility] [address] [place] [address] Moon Lyon MD Refill Request (baclofen (LIORESAL) 10 mg tablet) 12/07/2023 5:46 AM CDT - 12/07/2023 2:00 PM CDT Hospital Encounter [address] [address] Jacinto Fish MD Metastases to the liver (HC); Anterior uveal melanoma, unspecified laterality (HC) Discharge Disposition: Home Self Care 12/07/2023 Travel 11/28/2023 8:45 AM CDT - 11/28/2023 6:10 PM CDT Hospital Encounter [address] [address] Jacinto Fish MD Metastases to the liver (HC); Anterior uveal melanoma, unspecified laterality (HC) Discharge Disposition: Home Self Care 11/28/2023 Travel 11/27/2023 Telephone [facility] Cancer [facility] [address] [facility] [address] [place] [address] [facility] Cancer from Last 3 Months Immunizations Name Administration Dates Next Due AMB Influenza, IIV3 (Age >=3 years)(Flu Clinic Only) 05/09/2012,05/09/2012 COVID-19 Vaccine Spikevax (M oderna 50mcg/0.5mL) 12YO+ 7915-2845 Formula PF 08/29/2023 COVID-19 vaccine (Inkive-Bio NTech 30mcg/0.3mL) 12YO+ JUAN-SUCROSE PF, MDV 2021 COVID-19 vaccine (Inkive-Bio NTech 30mcg/0.3mL) PF, MDV 05/09/2021,10/06/2020,09/15/2020 COVID-19 vaccine Comirnaty (Inkive-Meridian-IQNTASSURED INFORMATION SECURITY 30mcg/0.3mL) 12YO+ [id number] Formula PF, SDV, PFS 03/16/2023 Influenza, IIV3 [...] Passive Smoke Exposure: Never Smokeless Tobacco: Never Tobacco Cessation:Counseling Given: Not Answered Alcohol Use Standard Drinks/Week Comments No 0 [...] Sign Reading Time Taken Comments Blood Pressure 151/90 02/06/2024 3:20 PM CDT Pulse 73 02/06/2024 3:25 PM CDT Temperature 36.7 ??C (98 ??F) 02/06/2024 9:00 AM CDT Respiratory Rate 16 02/06/2024 11:50 AM CDT Oxygen Saturation 97% 02/06/2024 3:25 PM CDT Inhaled Oxygen Concentration - - Weight 131.1 kg (289 lb) 02/06/2024 9:00 AM CDT Height 177.8 cm (5' 10) 02/06/2024 9:00 AM CDT Body Mass Index 41.47 02/06/2024 9:00 AM CDT Plan of Treatment Upcoming Encounters Date Type Department Care Team (Late st Contact Info) Description 02/26/2024 10:00 AM CDT Office Visit [facility] [address] [place] [address] Bereket Noyola MD [address] [place] [address] Arrived 03/04/2024 9:15 AM CDT Appointment [facility] [address] [place] [address] 03/04/2024 9:30 AM CDT Appointment [address] [address] 03/07/2024 10:30 AM CDT Telemedicine [facility] [place] [address] [facility] [address] [place] [address] Emely Bauman MD [address] [address] [place] [address] Health Maintenance Due Date Last Done Comments COVID-19 vaccine series ( season) 2024 08/29/2023, 03/16/2023, 05/26/2022, Additional history exists Influenza [...] age 73 01/10/202701/10, 01/02/2012 (Completed outside of [facility]) Lipids for age 45-75 08/23/2028 08/24/2023, 08/24/2023, 06/29/2023, Additional history exists Tetanus booster 07/17/2032 07/17/2022, 05/25, 03/26/2003, Additional history exists Zoster (shingles) series for age 50+ Completed 07/05/2018, 04/01/2018 Hepatitis C screening for ag e 18-79 Completed 06/28/2019 Pneumococcal series for age 6-64 Completed 03/10/20 22 Tdap Completed 07/17/2022, 05/25, 03/26/2003 HIV for age 15-65 Completed 09/05/2022 Procedures Procedure Name Priority Date/Time Associated Diagnosis Comments NM LIVER SPECT Routine 02/06/2024 12:00 PM CDT Metastases to the liver (HC) IR EMBOLIZATION Routine 02/06/2024 11:10 AM CDT Metastases to the liver (HC) HEPATIC FUNCTION PANEL Preop 02/06/2024 8:33 AM CDT CREATININE STAT 02/06/2024 8:33 AM CDT PLATELET COUNT STAT 02/06/2024 8:33 AM CDT HEMOGLOBIN STAT 02/06/2024 8:33 AM CDT PROTIME-INR STAT 02/06/2024 8:33 AM CDT HEMOGLOBIN Routine 01/18/2024 1:21 PM CDT Pre-op exam CT CHEST ABDOMEN PELVIS W Routine 01/01/2024 10:01 AM CDT 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, left (HC) CBC WITH AUTO DIFFERENTIAL Timed 01/01/2024 9:47 AM CDT 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, left (HC) CORTISOL TOTAL Today 01/01/2024 9:47 AM CDT 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, left (HC) LD,TOTAL Today 01/01/2024 9:47 AM CDT 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, left (HC) COMP METABOLIC PANEL Today 01/01/2024 9:47 AM CDT 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, left (HC) CBC WITH AUTO DIFFERENTIAL Today 01/01/2024 9:47 AM CDT 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, left (HC) NM LIVER SPECT Routine 12/07/2023 10:07 AM CDT Metastases to the liver (HC) Anterior uveal melanoma, unspecified laterality (HC) IR EMBOLIZATION Routine 12/07/2023 9:09 AM CDT Metastases to the liver (HC) Anterior uveal melanoma, unspecified laterality (HC) CREATININE STAT 12/07/2023 6:09 AM CDT NM LIVER SPECT Routine 11/28/2023 1:43 PM CDT Metastases to the liver (HC) Anterior uveal melanoma, unspecified laterality (HC) IR ANGIO HEPATIC Routine 11/28/2023 12:23 PM CDT Metastases to the liver (HC) Anterior uveal melanoma, unspecified laterality (HC) HEPATIC FUNCTION PANEL STAT 11/28/2023 8:57 AM CDT CREATININE STAT 11/28/2023 8:57 AM CDT PLATELET COUNT STAT 11/28/2023 8:57 AM CDT HEMOGLOBIN STAT 11/28/2023 8:57 AM CDT PROTIME-INR STAT 11/28/2023 8:57 AM CDT LIPID PANEL Routine 08/24/2023 10:34 AM CHIEF OPERATOR SYNTHESIS Pure hypercholesterolemia XR MAMMO DARIELA BILAT SCREEN Routine 07/20/2023 10:54 AM CHIEF OPERATOR SYNTHESIS Visit for screening mammogram LC HIV-1/O/2, 4TH GENERATION Today 09/05/2022 10:42 AM CDT Screening for HIV (human immunodeficiency virus) COLONOSCOPY 01/10/2022 7:20 AM CDT ANTI HCV Routine 06/28/2019 9:41 AM CHIEF OPERATOR SYNTHESIS Encounter for hepatitis C screening test for low risk patient from Last 3 Months or Most Recently Relevant to Health Maintenance Results * NM LIVER SPECT (02/06/2024 12:00 PM CDT) Only the most recent of3 resultswithin the time period is included. Anatomical Region Laterality Modality Abdomen, LIVER Nuclear Medicine 02/06/2024 12:0 0 PM CDT Impressions 02/06/2024 2:50 PM CDT CONCLUSION: Intense, expected radiotracer uptake within the right hepatic lobe . No extrahepatic uptake. Narrative 02/06/2024 2:50 PM CDT For Patients: As a result of the Cures Act, medical imaging exams and procedure reports are released immediately into your electronic medical record. You may view this report before your referring provider. If you have questions, please contact your health care provider. POST RADIOEMBOLIZATION BREMSSTRAHLUNG SPECT-CT OF THE ABDOMEN. 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 Patient underwent mapping procedure on 11/28/2023.Patient underwent hepatic radioembolization of the left medial and lateral hepatic lobe segments using TheraSpheres on 12/07/2023. Patient presents today for radioactive embolization of portions of the right hepatic lobe. TECHNIQUE: SPECT-CT acquisition of the abdomen was performed following administration of yttrium-90. 3.82 gigabecquerel of yttrium-90 Theraspheres ??was delivered into the right hepatic artery Welsh. FINDINGS: Intense radiotracer uptake within right hepatic lobe. No extrahepatic uptake. LUNG BASES: Mild dependent atelectatic changes. ABDOMEN: Noncirrhotic morphology of the liver. Stable spleen size. No adrenal masses.Normal caliber visualized loops of small bowel and colon. No significant atherosclerotic changes of normal caliber abdominal aorta. MUSCULOSKELETAL: Hypertrophic changes, visualized thoracic and lumbar spine. Procedure Note Jacinto Fish MD - 02/06/2024 For Patients: As a result of the Cures Act, medical imagingexams and procedure reports are released immediately into your electronicmedical record. You may view this report before your referring provider.If you have questions, please contact your health care provider. POST RADIOEMBOLIZATION BREMSSTRAHLUNG SPECT-CT OF THE ABDOMEN. [facility] 02/06/2024 INDICATION: 58-year-old female with a history of metastatic uveal melanomawith bilobar hepatic metastasis. Patient underwent mapping procedure on11/28/2023.Patient underwent hepatic radioembolization of the left medialand lateral hepatic lobe segments using TheraSpheres on 12/07/2023. Patientpresents today for radioactive embolization of portions of the righthepatic lobe. TECHNIQUE: SPECT-CT acquisition of the abdomen was performed followingadministration of yttrium-90. 3.82 gigabecquerel of yttrium-90Theraspheres was delivered into the right hepatic artery Welsh. FINDINGS: Intense radiotracer uptake within right hepatic lobe. No extrahepaticuptake. LUNG BASES: Mild dependent atelectatic changes. ABDOMEN: Noncirrhotic morphology of the liver. Stable spleen size. Noadrenal masses.Normal caliber visualized loops of small bowel and colon.No significant atherosclerotic changes of normal caliber abdominalaorta. MUSCULOSKELETAL: Hypertrophic changes, visualized thoracic and lumbarspine. IMPRESSION: CONCLUSION: Intense, expected radiotracer uptake within the right hepatic lobe . Noextrahepatic uptake. Jacinto Fish MD NM * IR EMBOLIZATION (02/06/2024 11:10 AM CDT) Only the most recent of2 resultswithin the time period is included. Anatomical Region Laterality Modality X-Ray Angiograph y, X-Ray Angiography, X-Ray Angiography, Other, Other 02/06/2024 11:1 0 AM CDT Impressions 02/06/2024 2:24 PM CDT Radioembolization of the right hepatic lobe using Theraspheres. Narrative 02/06/2024 2:24 PM CDT For Patients: As a result of the Century Cures Act, medical imaging exams and procedure reports are released immediately into your electronic medical record. You may view this report before your referring provider. If you have questions, please contact your health care provider. 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 Patient underwent mapping procedure on 11/28/2023.Patient underwent radioembolization of the left medial and lateral hepatic lobe segments using TheraSpheres on 12/07/2023. Patient returns for radioembolization embolization of segments of the right hepatic lobe. CONSENT: The procedure, risks and benefits of hepatic radioembolization were discussed with the patient in detail. All questions were answered. Informed consent was given to proceed with the procedure. MODERATE SEDATION: Prior to the procedure, the patient was alert and oriented. Versed 4 mg and fentanyl 200 mcg were administered intravenously with continuous vital signs monitoring by the radiology nurse under my direct supervision. Patient was alert and oriented post procedure. Total face to face moderate sedation time: 45 minutes. OTHER MEDICATIONS: 4 mg IV Zofran. CONTRAST: Visipaque 320 : 30 ml FLUOROSCOPIC TIME: 2.7 minutes. RADIATION DOSE: Air Kerma: 322 mGy COMPLICATIONS: No immediate complications. STERILE BARRIER TECHNIQUE: Maximum sterile barrier technique was used. Cutaneous antisepsis was performed at the operative site with application of 2% chlorhexidine and large sterile drape. Prior to the procedure, the large sheetfed press operator and bilingual executive assistant performed hand hygiene and wore hat, mask, sterile gown, and sterile gloves during the entire procedure. PROCEDURE/TECHNIQUE: Basic dosimetry calculation: Yttrium-90 is being considered in this patient with uveal melanoma. A 0.83 Gigabecquerels calculated yttrium-90 for the left medial segment was calculated using the patient's liver volumes, and 0.83 gigabecquerels was calculated yttrium-90 for the left lateral segment was calculated using the patient's liver volumes, as demonstrated by MRI. The MRI from 09/04/2023 was reviewed by myself. The right hepatic lobe measures 1750 mL. The left hepatic lobe measures 509 mL. The perfused volume of the targeted treatment zone measures 864 mL. The desired administered dose was 213 Gy. The pulmonary shunt is 2.8%. After informed consent was obtained, the bilateral groins were prepped and draped in sterile fashion. Using local anesthesia and a micropuncture set, access obtained into the right common femoral artery. Through the micropuncture sheath, a 0.035 inch angled Glidewire was advanced to the abdominal aorta. Over the guidewire, a 5 Welsh vascular sheath was placed within the common femoral artery. Selective arteriography of the celiac artery was performed using a 5 Welsh Cobra catheter. With the aid of a 0.035 inch angled Glidewire the Cobra catheter was used to select the left gastric artery. A 2.4 Welsh Progreat microcatheter was advanced to the right hepatic artery third order branch. Adequate position confirmed with contrast injection. The calculated yttrium-90 dose was brought to the angiography suite. As the interventional radiologist and authorized user for yttrium-90 the Easiaid delivery system was prepared according to the on air personality's guidance. The outlet delivery tubing was connected to the microcatheter. The calculated dose was delivered through the Progreat microcatheter. Following this the microcatheter was removed from the patient and secured according to the radiation safety protocols. Post procedure bremsstrahlung scan demonstrated intense uptake within the right hepatic lobe. No extrahepatic uptake. FINDINGS: 1. Separate right and left hepatic arteries. 2. Proper position confirmed within the right hepatic artery branch. 3. 99.3 % of the anticipated Theraspheres dose was administered to the right hepatic artery branch. Procedure Note Jacinto Fish MD - 02/06/2024 For Patients: As a result of the Century Cures Act, medical imagingexams and procedure reports are released immediately into your electronicmedical record. You may view this report before your referring provider.If you have questions, please contact your health care provider. [facility] LOCATION: [facility] MEDICAL IMAGING DATE: 02/06/2024 PROCEDURE: LIVER RADIOEMBOLIZATION INTERVENTIONAL RADIOLOGIST: Jacinto Fish MD INDICATION: 58-year-old female with a history of metastatic uveal melanomawith bilobar hepatic metastasis. Patient underwent mapping procedure on11/28/2023.Patient underwent radioembolization of the left medial andlateral hepatic lobe segments using TheraSpheres on 12/07/2023. Patientreturns for radioembolization embolization of segments of the righthepatic lobe. CONSENT: The procedure, risks and benefits of hepatic radioembolizationwere discussed with the patient in detail. All questions were answered.Informed consent was given to proceed with the procedure. MODERATE SEDATION: Prior to the procedure, the patient was alert andoriented. Versed 4 mg and fentanyl 200 mcg were administered intravenouslywith continuous vital signs monitoring by the radiology nurse under mydirect supervision. Patient was alert and oriented post procedure. Totalface to face moderate sedation time: 45 minutes. OTHER MEDICATIONS: 4 mg IV Zofran. CONTRAST: Visipaque 320 : 30 ml FLUOROSCOPIC TIME: 2.7 minutes. RADIATION DOSE: Air Kerma: 322 mGy COMPLICATIONS: No immediate complications. STERILE BARRIER TECHNIQUE: Maximum sterile barrier technique was used.Cutaneous antisepsis was performed at the operative site with applicationof 2% chlorhexidine and large sterile drape. Prior to the procedure, theoperator and bilingual executive assistant performed hand hygiene and wore hat, mask, sterilegown, and sterile gloves during the entire procedure. PROCEDURE/TECHNIQUE: Basic dosimetry calculation: Yttrium-90 is being considered in thispatient with uveal melanoma. A 0.83 Gigabecquerels calculated yttrium-90for the left medial segment was calculated using the patient's livervolumes, and 0.83 gigabecquerels was calculated yttrium-90 for the leftlateral segment was calculated using the patient's liver volumes, asdemonstrated by MRI. The MRI from 09/04/2023 was reviewed by myself. Theright hepatic lobe measures 1750 mL. The left hepatic lobe measures 509mL. The perfused volume of the targeted treatment zone measures 864 mL.The desired administered dose was 213 Gy. The pulmonary shunt is 2.8%. After informed consent was obtained, the bilateral groins were prepped anddraped in sterile fashion. Using local anesthesia and a micropuncture set,access obtained into the right common femoral artery. Through themicropuncture sheath, a 0.035 inch angled Glidewire was advanced to theabdominal aorta. Over the guidewire, a 5 Welsh vascular sheath was placedwithin the common femoral artery. Selective arteriography of the celiacartery was performed using a 5 Welsh Cobra catheter. With the aid of a0.035 inch angled Glidewire the Cobra catheter was used to select the leftgastric artery. A 2.4 Welsh Progreat microcatheter was advanced to theright hepatic artery third order branch. Adequate position confirmed withcontrast injection. The calculated yttrium-90 dose was brought to the angiography suite. [facility] interventional radiologist and authorized user for yttrium-90 theTheraSpheres delivery system was prepared according to the on air personality'sguidance. The outlet delivery tubing was connected to the microcatheter.The calculated dose was delivered through the Progreat microcatheter. Following this the microcatheter was removed from the patient and securedaccording to the radiation safety protocols. Post procedure bremsstrahlung scan demonstrated intense uptake within theright hepatic lobe. No extrahepatic uptake. FINDINGS: 1. Separate right and left hepatic arteries. 2. Proper position confirmed within the right hepatic artery branch. 3. 99.3 % of the anticipated Theraspheres dose was administered to theright hepatic artery branch. IMPRESSION: Radioembolization of the right hepatic lobe using Theraspheres. Jacnito Fish MD IR * Platelet Count (02/06/2024 8:33 AM CDT) Only the most recent of2 resultswithin the time period is included. PLATELET COUNT 288 140 - 440 thou/cu mm 02/06/2024 8:45 AM CDT [facility] MPV 8.7 6.5 - 11.0 fL 02/06/2024 8:45 AM CDT [facility] Blood BLOOD SPECIMEN / Unknown Venipuncture / Unknown 02/06/2024 8:33 AM CDT 02/06/2024 8:33 AM CDT Narrative [facility] [facility] - 02/06/2024 8:45 AM CDT If not done within past 14 days. ??Nurse to release order. If not done within past 14 days. ??Nurse to release order. Makeda Poon NP HEMATOLOGY [facility] SENDOUT INTERNAL [address]IP [id number] [place] [address] * Hemoglobin (02/06/2024 8:33 AM CDT) Only the most recent of3 resultswithin the time period is included. HEMOGLOBIN 14.3 12.0 - 16.0 g/dL 02/06/2024 8:45 AM CDT [facility] MCV 91 80 - 100 fL 02/06/2024 8:45 AM CDT [facility] Blood BLOOD SPECIMEN / Unknown Venipuncture / Unknown 02/06/2024 8:33 AM CDT 02/06/2024 8:33 AM CDT Narrative [facility] - 02/06/2024 8:45 AM CDT If not done within past 14 days. ??Nurse to release order. If not done within past 14 days. ??Nurse to release order. Makeda Poon NP HEMATOLOGY [facility] [address]OUT [place] [phone] [place] [address] * Creatinine (02/06/2024 8:33 AM CDT) Only the most recent of3 resultswithin the time period is included. eGFR >90 >90 mL/min/1.7 3m2 02/06/2024 9:03 AM CDT [facility] Comment:As of 2021, eG FR is calculated by the CKD-EPI creatinine equation without race adjustment. ??eGFR can be influenced by muscle mass, exercise, and diet. ??The reported eGFR is an estimation only and is only applicable if the renal function is stable. CREATININE 0.71 0.50 - 0.90 mg/dL 02/06/2024 9:03 AM CDT [facility] Blood BLOOD SPECIMEN / Unknown Venipuncture / Unknown 02/06/2024 8:33 AM CDT 02/06/2024 8:33 AM CDT Makeda Poon SILK SCREEN LAYOUT DRAFTER CHEMISTRY [facility] SENDOUT INTERNAL [address] [phone] [place] [address] * Protime - INR (02/06/2024 8:33 AM CDT) Only the most recent of2 resultswithin the time period is included. INR 1.0 <1.3 02/06/2024 8:53 AM CDT [facility] PROTIME 11.3 10.3 - 12.3 sec 02/06/2024 8:53 AM CDT [facility] Blood BLOOD SPECIMEN / Unknown Venipuncture / Unknown 02/06/2024 8:33 AM CDT 02/06/2024 8:33 AM CDT Narrative [facility] - 02/06/2024 8:53 AM CDT ?Therapeutic Range 2.0-3.0 for most [...] seconds if the patient is on UFH. Makeda Poon NP HEMATOLOGY Performing Organization Address [facility]/ZIP Co de Phone Number [facility] SENDOUT INTERNAL [address]IP [phone] [place] [address] * (ABNORMAL) Hepatic Function Panel (LFT) (02/06/2024 8:33 AM CDT) Only the most recent of2 resultswithin the time period is included. ALBUMIN 4.2 4.0 - 4.9 g/dL 02/06/2024 9:03 AM CDT [facility] PROTEIN,TOTAL 6.7 6.0 - 8.0 g/dL 02/06/2024 9:03 AM CDT [facility] BILIRUBIN,TOTAL 0.6 0.0 - 1.2 mg/dL 02/06/2024 9:03 AM CDT [facility] BILIRUBIN,DIRECT 0.3(H) 0.0 - 0.2 mg/dL 02/06/2024 9:03 AM CDT [facility] BILIRUBIN,INDIRE CT 0.3 0.2 - 0.8 mg/dL 02/06/2024 9:03 AM CDT [facility] ALK PHOSPHATASE 150(H) 35 - 104 IU/L 02/06/2024 9:03 AM CDT [facility] ALT (SGPT) 36(H) 10 - 35 IU/L 02/06/2024 9:03 AM CDT [facility] AST (SGOT) 40(H) 10 - 35 IU/L 02/06/2024 9:03 AM CDT [facility] Blood BLOOD SPECIMEN / Unknown Venipuncture / Unknown 02/06/2024 8:33 AM CDT 02/06/2024 8:33 AM CDT Makeda Poon NP CHEMISTRY Performing Organization Address [facility]/ZIP Co de Phone Number [facility] SENDOUT INTERNAL ZIP [phone] [place] [address] * CT CHEST ABDOMEN PELVIS W (01/01/2024 10:01 AM CDT) Anatomical Region Laterality Modality Abdomen, Pelvis, AORTA, LIVER, SPLEEN, CHEST Computed Tomography 01/01/2024 10:5 4 AM CDT Impressions 01/01/2024 10:54 AM CDT 1. Multiple hepatic low-density masses, increased in size and number compared to the previous MRI scan of the liver performed on 09/04/2023 consistent with progressive metastatic disease. These lesions could be better defined with hepatic MRI. 2. No metastatic disease identified within the chest. Please note that all CT scans at this facility use dose modulation, iterative reconstruction, and/or weight-based dosing when appropriate to reduce radiation dose to as low as reasonably achievable. Dictated by Caden Sow MD @ 01/01/2024 10:54:38 AM (Electronically Signed) Narrative 01/01/2024 10:54 AM CDT For Patients: ??As a result of the Cures Act, medical imaging exams and procedure reports are released immediately into your electronic medical record. ??You may view this report before your referring provider. ??If you have questions, please contact your health care provider. 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 TECHNIQUE: CT chest, abdomen and pelvis acquired with 100 cc Visipaque 320 IV contrast. COMPARISON: MRI scan of the abdomen 09/04/2023 CT scan of the chest 09/04/2023 and SPECT scan of the liver 11/28/2023 and 12/07/2023 FINDINGS: CHEST: Lower neck and chest wall: Unremarkable thyroid. No chest wall mass or axillary lymphadenopathy. Mediastinum and lis: No mediastinal or hilar lymphadenopathy. Heart and vasculature: Moderate/severe coronary artery calcification. No cardiomegaly. Unremarkable thoracic aorta. Lungs: Punctate calcified granuloma within the left lower lobe (image 125, series 3), unchanged compared to the prior chest CT performed on 09/04/2023. Otherwise clear lungs. Pleura: Normal. No pleural mass, pleural effusion or pneumothorax. Bones: Mild degenerative spondylosis of the thoracic spine. ABDOMEN AND PELVIS: Liver: Heterogeneous liver with multiple hepatic low-density masses measuring up to 3.7 cm in the right hepatic lobe. These appear to have increased in number and size compared to the previous abdominal MRI performed on 09/04/2023. No intrahepatic duct dilatation. Gallbladder and bile ducts: Status post cholecystectomy. Normal caliber common bile duct. Pancreas: Unremarkable. No mass or inflammation. Spleen: Normal in size. No masses. Adrenal glands: Normal in size. No nodules. Kidneys, ureters and urinary bladder: Too small to accurately characterize left renal low-density lesion (image 111, series 4), statistically likely tiny cysts. Otherwise unremarkable kidneys and ureters. Unremarkable urinary bladder. GI tract: Colonic diverticulosis. Unremarkable stomach and small bowel. No appendicitis. Vasculature: Unremarkable. Lymph nodes: No lymphadenopathy. Peritoneum: Unremarkable. No sign of mass or infiltration. No free air or significant free fluid. Pelvis: Unremarkable. No pelvic mass. Abdominal wall: Unremarkable. No mass or bowel containing hernia. Bones: Degenerative spondylosis of the lumbar spine. No acute fracture or suspicious bone lesion. Procedure Note Caden Sow MD - 01/01/2024 For Patients: As a result of the Cures Act, medical imagingexams and procedure reports are released immediately into your electronicmedical record. You may view this report before your referring provider.If you have questions, please contact your health care provider. 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 TECHNIQUE: CT chest, abdomen and pelvis acquired with 100 cc Visipaque 320 IVcontrast. COMPARISON: MRI scan of the abdomen 09/04/2023 CT scan of the chest 09/04/2023 andSPECT scan of the liver 11/28/2023 and 12/07/2023 FINDINGS: CHEST: Lower neck and chest wall: Unremarkable thyroid. No chest wall mass oraxillary lymphadenopathy. Mediastinum and lis: No mediastinal or hilar lymphadenopathy. Heart and vasculature: Moderate/severe coronary artery calcification. Nocardiomegaly. Unremarkable thoracic aorta. Lungs: Punctate calcified granuloma within the left lower lobe (image 125,series 3), unchanged compared to the prior chest CT performed on09/04/2023. Otherwise clear lungs. Pleura: Normal. No pleural mass, pleural effusion or pneumothorax. Bones: Mild degenerative spondylosis of the thoracic spine. ABDOMEN AND PELVIS: Liver: Heterogeneous liver with multiple hepatic low-density massesmeasuring up to 3.7 cm in the right hepatic lobe. These appear to haveincreased in number and size compared to the previous abdominal MRIperformed on 09/04/2023. No intrahepatic duct dilatation. Gallbladder and bile ducts: Status post cholecystectomy. Normal calibercommon bile duct. Pancreas: Unremarkable. No mass or inflammation. Spleen: Normal in size. No masses. Adrenal glands: Normal in size. No nodules. Kidneys, ureters and urinary bladder: Too small to accurately characterizeleft renal low-density lesion (image 111, series 4), statistically likelytiny cysts. Otherwise unremarkable kidneys and ureters. Unremarkableurinary bladder. GI tract: Colonic diverticulosis. Unremarkable stomach and small bowel. Noappendicitis. Vasculature: Unremarkable. Lymph nodes: No lymphadenopathy. Peritoneum: Unremarkable. No sign of mass or infiltration. No free air orsignificant free fluid. Pelvis: Unremarkable. No pelvic mass. Abdominal wall: Unremarkable. No mass or bowel containing hernia. Bones: Degenerative spondylosis of the lumbar spine. No acute fracture orsuspicious bone lesion. IMPRESSION: 1. Multiple hepatic low-density masses, increased in size and numbercompared to the previous MRI scan of the liver performed on 4consistent with progressive metastatic disease. These lesions could bebetter defined with hepatic MRI. 2. No metastatic disease identified within the chest. Please note that all CT scans at this facility use dose modulation,iterative reconstruction, and/or weight-based dosing when appropriate toreduce radiation dose to as low as reasonably achievable. Dictated by Caden Sow MD @ 01/01/2024 10:54:38 AM (Electronically Signed) Emely Levi MD CT * CORTISOL TOTAL (01/01/2024 9:47 AM CDT) CORTISOL,TOTAL 13.4 ug/dL 01/01/2024 11:45 PM CDT [facility] [employer] [facility] Blood BLOOD SPECIMEN / Unknown Venipuncture / Unknown 01/01/2024 9:47 AM CDT 01/01/2024 9:48 AM CDT Narrative [facility] - 01/01/2024 11:45 PM CDT Cortisol ?Morning Hours ?6:00 ??AM - 10:00 AM ?(4.8-19.5 ug/dL) Cortisol ?Afternoon Hours ??4:00 ??PM - ??8:00 PM ?(2.5-11.9 ug/dL) ? Biotin supplements may cause clinically significant interference for this test assay. ??If interference is suspected, it is strongly recommended that biotin is discontinued for at least one week prior to retesting. Emely Levi MD CHEMISTRY [facility] [address] [place] [address], * (ABNORMAL) CBC WITH AUTO DIFFERENTIAL (01/01/2024 9:47 AM CDT) Pathologist [facility] WHITE BLOOD COUNT 6.0 4.5 - 11.0 thou/cu mm 01/01/2024 9:52 AM [facility] RED BLOOD COUNT 4.75 4.00 - 5.20 mil/cu mm 01/01/2024 9:52 AM [facility] HEMOGLOBIN 14.8 12.0 - 16.0 g/dL 01/01/2024 9:52 AM [facility] HEMATOCRIT 44.4 33.0 - 51.0 % 01/01/2024 9:52 AM [facility] MCV 94 80 - 100 fL 01/01/2024 9:52 AM [facility] MCH 31.2 26.0 - 34.0 pg 01/01/2024 9:52 AM [facility] MCHC 33.3 32.0 - 36.0 g/dL 01/01/2024 9:52 AM [facility] RDW 14.6 11.5 - 15.5 % 01/01/2024 9:52 AM [facility] PLATELET COUNT 282 140 - 440 thou/cu mm 01/01/2024 9:52 AM [facility] MPV 8.8 6.5 - 11.0 fL 01/01/2024 9:52 AM [facility] % NEUT 78.5 % 01/01/2024 9:[address] [facility] % LYMPH 11.8 % 01/01/2024 9:52 AM T [facility] % MONO 8.5 % 01/01/2024 9:52 AM [facility] % EOS 0.7 % 01/01/2024 9:52 AM T [facility] % BASO 0.5 % 01/01/2024 9:52 AM T [facility] ABSOLUTE NEUTROPHILS 4.7 1.7 - 7.0 thou/cu mm 01/01/2024 9:52 AM T [facility] ABSOLUTE LYMPHOCYTES 0.7(L) 0.9 - 2.9 thou/cu mm 01/01/2024 9:52 AM [facility] ABSOLUTE MONOCYTES 0.5 <0.9 thou/cu mm 01/01/2024 9:52 AM [facility] ABSOLUTE EOSINOPHILS 0.0 <0.5 thou/cu mm 01/01/2024 9:52 AM [facility] ABSOLUTE BASOPHILS 0.0 <0.3 thou/cu mm 01/01/2024 9:52 AM T [facility] Blood BLOOD SPECIMEN / Unknown Venipuncture / Unknown 01/01/2024 9:47 AM CDT 01/01/2024 9:48 AM T [facility] - 01/01/2024 9:52 AM CDT This procedure was originally ordered at [facility]. This procedure was originally ordered at [facility]. Emely Levi MD HEMATOLOGY [facility] [address] [place], [place] [id number] * (ABNORMAL) LD,TOTAL (01/01/2024 9:47 AM CDT) LD,TOTAL 276(H) 135 - 214 IU/L 01/01/2024 11:24 AM T [facility] Blood BLOOD SPECIMEN / Unknown Venipuncture / Unknown 01/01/2024 9:47 AM CDT 01/01/2024 9:48 AM CDT Emely Levi MD CHEMISTRY [facility] [address] [place] [address] * (ABNORMAL) COMP METABOLIC PANEL (01/01/2024 9:47 AM CDT) SODIUM 141 136 - 145 mmol/L 01/01/2024 10:11 AM [facility] POTASSIUM 4.4 3.5 - 5.1 mmol/L 01/01/2024 10:11 AM [facility] CHLORIDE 105 98 - 107 mmol/L 01/01/2024 10:11 AM [facility] CO2,TOTAL 26 22 - 29 mmol/L 01/01/2024 10:11 AM [facility] ANION GAP 10 5 - 18 01/01/2024 10:11 AM [facility] GLUCOSE 107(H) 70 - 99 mg/dL 01/01/2024 10:11 AM [facility] CALCIUM 9.6 8.8 - 10.2 mg/dL 01/01/2024 10:11 AM [facility] BUN 16 8 - 23 mg/dL 01/01/2024 10:11 AM [facility] CREATININE 0.72 0.50 - 0.90 mg/dL 01/01/2024 10:11 AM [facility] BUN/CREAT RATIO 22(H) 10 - 20 10:11 AM [facility] eGFR >90 >90 mL/min/1.7 3m2 01/01/2024 10:11 AM [facility] Comment:As of 2021, eG FR is calculated by the CKD-EPI creatinine equation without race adjustment. ??eGFR can be influenced by muscle mass, exercise, and diet. ??The reported eGFR is an estimation only and is only applicable if the renal function is stable. ALBUMIN 4.2 4.0 - 4.9 g/dL 01/01/2024 10:11 AM CDT [facility] PROTEIN,TOTAL 7.0 6.0 - 8.0 g/dL 01/01/2024 10:11 AM CDT [facility] BILIRUBIN,TOTAL 0.5 0.0 - 1.2 mg/dL 01/01/2024 10:11 AM CDT [facility] ALK PHOSPHATASE 109(H) 35 - 104 IU/L 01/01/2024 10:11 AM CDT [facility] ALT (SGPT) 28 10 - 35 IU/L 01/01/2024 10:11 AM CDT [facility] AST (SGOT) 34 10 - 35 IU/L 01/01/2024 10:11 AM CDT [facility] Blood BLOOD SPECIMEN / Unknown Venipuncture / Unknown 01/01/2024 9:47 AM CDT 01/01/2024 9:48 AM CDT Emely Levi MD CHEMISTRY [facility] [address] [place] [address] * IR ANGIO HEPATIC (11/28/2023 12:23 PM CDT) Anatomical Region Laterality Modality X-Ray Angiograph y, X-Ray Angiography, Other, Other 11/28/2023 12:2 3 PM CDT Impressions 11/28/2023 1:04 PM CDT 1. ??Successful mapping procedure prior to radioembolization of the bilobar hepatic masses. PLAN: Separate left followed by right radioembolization treatments will be necessary. It is likely that the right side can be split into 2 treatments. Narrative 11/28/2023 1:04 PM CDT For Patients: As a result of the Cures Act, medical imaging exams and procedure reports are released immediately into your electronic medical record. You may view this report before your referring provider. If you have questions, please contact your health care provider. [facility] LOCATION: [facility] DATE: 11/28/2023 PROCEDURE: 1. ??Celiac arteriogram, common hepatic arteriogram, left gastric angiogram, left hepatic angiogram, right hepatic angiogram, MAA administration 2. ??Moderate sedation ATTENDING: Jacinto Fish MD INDICATION: 58-year-old female with a history of metastatic uveal melanoma with bilobar hepatic metastasis. Patient presents for mapping procedure prior to repeat radioembolization. CONSENT: The risks, benefits and alternatives of the procedure were discussed with the patient ??in detail. All questions were answered. Informed consent was given to proceed with the procedure. MODERATE SEDATION: Versed for mg IV; Fentanyl 250 mcg IV. During the time out, immediately prior to the administration of medications, the patient was reassessed for adequacy to receive conscious sedation. ??Under physician supervision, Versed and fentanyl were administered for moderate sedation. Pulse oximetry, heart rate and blood pressure were continuously monitored by an independent trained observer. The physician spent 75 minutes of [id number]-[id number]-mryr sedation time with the patient. CONTRAST: 75 mL Omnipaque 300, intra-arterially. ANTIBIOTICS: None. ADDITIONAL MEDICATIONS: None. FLUOROSCOPIC TIME: 13.3 minutes. RADIATION DOSE: Air Kerma: 3592 mGy. COMPLICATIONS: No immediate complications. STERILE BARRIER TECHNIQUE: Maximum sterile barrier technique was used. Cutaneous antisepsis was performed at the operative site with application of 2% chlorhexidine and large sterile drape. Prior to the procedure, the large sheetfed press operator and bilingual executive assistant performed hand hygiene and wore hat, mask, sterile gown, and sterile gloves during the entire procedure. PROCEDURE: ??The procedure, including the risks, benefits, and alternatives to the procedure itself were discussed with the patient. When all of their questions were answered informed written and verbal consent was obtained. The patient was then brought to the Interventional Radiology suite, placed in a supine position, and both of the patient's groins were sterilely prepped and draped. The right common femoral artery was noted to be ultrasound patent. After giving local anesthesia with lidocaine, the right common femoral artery was punctured with a 21 gauge needle, under ultrasound guidance with a permanent image stored. A 0.018 inch wire advanced through the needle into the external iliac artery under fluoroscopic guidance. The needle was then exchanged over the wire for a 4 Welsh coaxial dilator. The inner 3 Welsh dilator and 0.018 inch wire were then exchanged for a 0.035 inch guidewire. The outer 4 Welsh dilator was then exchanged over the guidewire for a 5 Welsh vascular sheath. ??A pressurized heparinized saline drip was then administered through the side arm of the sheath. A 5 Welsh Cobra catheter was advanced over a 0.035 inch angled Glidewire ??and used to select the superior mesenteric artery origin. Digital subtraction angiography was performed. The visceral selective catheter was then used to select the celiac axis origin. Digital subtraction angiography was performed. Following this the 2.8 Welsh Progreat microcatheter was coaxially loaded into the Cobra catheter with the aid of a 0.016 inch fathom wire was used to select the left medial segment hepatic artery. Digital subtraction angiography, including Sirena CT was performed. The Progreat microcatheter was then retracted and was used to select 2 separate third order branches of the right hepatic artery. Digital subtraction angiography, including Sirena CT, was performed within each. The microcatheter was then removed. The Cobra catheter, with the aid of the angle Glidewire was used to select the left gastric artery. Digital subtraction angiography was performed. The Progreat microcatheter was coaxially loaded into the Cobra catheter with the aid of a 0.016 inch wire was used to select the accessory left hepatic artery, lateral branch, arising from the left gastric artery. Angiography including Sirena CT was performed. With proper position confirmed MAA was administered. The Cobra catheter was retracted and redirected into the right hepatic artery. The microcatheter was positioned proximal to the bifurcation of the 2 right hepatic artery branches and with its proper position confirmed MAA was administered. The Cobra catheter as well as the microcatheter were removed. The sheath was removed and hemostasis was achieved using manual compression. FINDINGS: 1. ??Accessory left hepatic artery arising from the left gastric artery. 2. ??Bilobar hepatic angiography with MAA administration. Procedure Note Jaicnto Fish MD - 11/28/2023 For Patients: As a result of the Cures Act, medical imagingexams and procedure reports are released immediately into your electronicmedical record. You may view this report before your referring provider.If you have questions, please contact your health care provider. [facility] LOCATION: [facility] DATE: 11/28/2023 PROCEDURE: 1. Celiac arteriogram, common hepatic arteriogram, left gastricangiogram, left hepatic angiogram, right hepatic angiogram, MAAadministration 2. Moderate sedation ATTENDING: Jacinto Fish MD INDICATION: 58-year-old female with a history of metastatic uveal melanomawith bilobar hepatic metastasis. Patient presents for mapping procedureprior to repeat radioembolization. CONSENT: The risks, benefits and alternatives of the procedure werediscussed with the patient in detail. All questions were answered.Informed consent was given to proceed with the procedure. MODERATE SEDATION: Versed for mg IV; Fentanyl 250 mcg IV. During the timeout, immediately prior to the administration of medications, the patientwas reassessed for adequacy to receive conscious sedation. Underphysician supervision, Versed and fentanyl were administered for moderatesedation. Pulse oximetry, heart rate and blood pressure were continuouslymonitored by an independent trained observer. The physician spent 75minutes of [id number]-[id number]-[id number] sedation time with the patient. CONTRAST: 75 mL Omnipaque 300, intra-arterially. ANTIBIOTICS: None. ADDITIONAL MEDICATIONS: None. FLUOROSCOPIC TIME: 13.3 minutes. RADIATION DOSE: Air Kerma: 3592 mGy. COMPLICATIONS: No immediate complications. STERILE BARRIER TECHNIQUE: Maximum sterile barrier technique was used.Cutaneous antisepsis was performed at the operative site with applicationof 2% chlorhexidine and large sterile drape. Prior to the procedure, theoperator and bilingual executive assistant performed hand hygiene and wore hat, mask, sterilegown, and sterile gloves during the entire procedure. PROCEDURE: The procedure, including the risks, benefits, and alternativesto the procedure itself were discussed with the patient. When all of theirquestions were answered informed written and verbal consent was obtained.The patient was then brought to the Interventional Radiology suite, placedin a supine position, and both of the patient's groins were sterilelyprepped and draped. The right common femoral artery was noted to beultrasound patent. After giving local anesthesia with lidocaine, the rightcommon femoral artery was punctured with a 21 gauge needle, underultrasound guidance with a permanent image stored. A 0.018 inch wireadvanced through the needle into the external iliac artery underfluoroscopic guidance. The needle was then exchanged over the wire for a 4French coaxial dilator. The inner 3 Welsh dilator and 0.018 inch wirewere then exchanged for a 0.035 inch guidewire. The outer 4 Welsh dilatorwas then exchanged over the guidewire for a 5 Welsh vascular sheath. Apressurized heparinized saline drip was then administered through the sidearm of the sheath. A 5 Welsh Cobra catheter was advanced over a 0.035 inch angled Glidewireand used to select the superior mesenteric artery origin. Digitalsubtraction angiography was performed. The visceral selective catheter wasthen used to select the celiac axis origin. Digital subtractionangiography was performed. Following this the 2.8 Welsh Progreatmicrocatheter was coaxially loaded into the Cobra catheter with the aid ofa 0.016 inch fathom wire was used to select the left medial segmenthepatic artery. Digital subtraction angiography, including Sirena CT wasperformed. The Progreat microcatheter was then retracted and was used to select 2separate third order branches of the right hepatic artery. Digitalsubtraction angiography, including Sirena CT, was performed within each. The microcatheter was then removed. The Cobra catheter, with the aid ofthe angle Glidewire was used to select the left gastric artery. Digitalsubtraction angiography was performed. The Progreat microcatheter wascoaxially loaded into the Cobra catheter with the aid of a 0.016 inch wirewas used to select the accessory left hepatic artery, lateral branch,arising from the left gastric artery. Angiography including Sirena CT wasperformed. With proper position confirmed MAA was administered. The Cobra catheterwas retracted and redirected into the right hepatic artery. Themicrocatheter was positioned proximal to the bifurcation of the 2 righthepatic artery branches and with its proper position confirmed MAA wasadministered. The Cobra catheter as well as the microcatheter were removed. The sheathwas removed and hemostasis was achieved using manual compression. FINDINGS: 1. Accessory left hepatic artery arising from the left gastric artery. 2. Bilobar hepatic angiography with MAA administration. IMPRESSION: 1. Successful mapping procedure prior to radioembolization of the bilobarhepatic masses. PLAN: Separate left followed by right radioembolization treatments will benecessary. It is likely that the right side can be split into 2treatments. Jacinto Fish MD IR * (ABNORMAL) LIPID PANEL (08/24/2023 10:34 AM CHIEF OPERATOR SYNTHESIS) CHOLESTEROL,TOTAL 183 100 - 199 mg/dL 08/24/2023 11:09 AM [facility] Comment: Cholesterol, Total Reference Ranges Desirable <200 mg/dL Borderline 200-239 mg/dL High >=240 mg/dL Cholesterol, Total Reference Ranges Desirable <200 mg/dL Borderline 200-239 mg/dL High >=240 mg/dL TRIGLYCERIDES 189(H) <150 mg/dL 08/24/2023 11:09 AM [facility] HDL CHOLESTEROL 67 >40 mg/dL 11:09 AM [facility] NON-HDL CHOLESTEROL 116 <145 mg/dl 08/24/2023 11:09 AM [facility] CHOL/HDL RATIO 2.73 <4.50 08/24/2023 11:09 AM [facility] LDL CHOLESTEROL 78 <=130 mg/dL 08/24/2023 11:09 AM [facility] VLDL CHOLESTEROL 38(H) <=30 mg/dL 08/24/2023 11:09 AM [facility] PROVIDER ORDERED STATUS RANDOM 08/24/2023 11:09 AM [facility] Blood BLOOD SPECIMEN / Unknown Venipuncture / Unknown 08/24/2023 10:34 AM CHIEF OPERATOR SYNTHESIS 08/24/2023 10:35 AM CHIEF OPERATOR SYNTHESIS Ramos Rossi MD CHEMISTRY [facility] [address] [place] [address] * XR MAMMO DARIELA BILAT SCREEN (07/20/2023 10:54 AM CHIEF OPERATOR SYNTHESIS) Anatomical Region Laterality Modality BREASTS, Breast Left, Breast Right Bilateral Mammography Impressions 07/20/2023 11:30 AM CHIEF OPERATOR SYNTHESIS ??There is no radiographic evidence for malignancy. ??Recommend annual mammograms. MAMMOGRAM ASSESSMENT: ??ACR 1 Negative PATIENTS: You will also receive a letter with your examination results in an easy to read format. ??If you have questions about your results, please contact your referring provider. Narrative 07/20/2023 11:30 AM CHIEF OPERATOR SYNTHESIS For Patients: As a result of the Century Cures Act, medical imaging exams and procedure reports are released immediately into your electronic medical record. You may view this report before your referring provider. If you have questions, please contact your health care provider. XR MAMMO DARIELA BILAT SCREEN [[id number]] CLINICAL HISTORY: ??This is an asymptomatic 57 [...] Reactive Non Reactive 09/07/2022 2:08 PM CDT [facility] Comment: HIV Negative HIV-1/HIV-2 antibodies and HIV-1 p24 antigen were NOT detected. There is no laboratory evidence of HIV infection. Blood BLOOD SPECIMEN / Unknown Venipuncture / Unknown 09/05/2022 10:42 AM CDT 09/05/2022 10:43 AM CDT Narrative [facility] - 09/07/2022 2:08 PM CDT Performed at: ??[address] ??[id number] Family Advocate: Edgardo Kennedy MD, Phone: ??[phone] Moon Lyon MD LABORATORY [facility] [address] [place], [place] [id number], * COLONOSCOPY (01/10/2022 7:20 AM CDT) 01/10/2022 [...] adequate candidate for conscious sedation. The endoscope [id number] was passed through the anus and advanced [...] ORD * ANTI HCV (06/28/2019 9:41 AM CHIEF OPERATOR SYNTHESIS) HEPATITIS C ANTIBODY Non-React celio Non-React celio 06/28/2019 1:29 PM CHIEF OPERATOR SYNTHESIS [facility] Comment:Antibodies to HCV no t detected; does not exclude the possibility of exposure to HCV. Blood BLOOD SPECIMEN / Unknown Butterfly / Unknown 06/28/2019 9:41 AM CHIEF OPERATOR SYNTHESIS 06/28/2019 9:41 AM CHIEF OPERATOR SYNTHESIS Moon Lyon MD SEND OUTS [facility] [address] [place] [address], from Last 3 Months or Most Recently Relevant to Health Maintenance Advance Directives * Full Code (Latest Code Status on File) Date Activated Date Inactivated Comments 01/10/2022 7:00 AM 01/10/2022 11:07 AM Question Answer Comments Code Status Discussion: Discussed * Full Code Date Activated Date Inactivated Comments 02/15/2017 6:53 AM 02/15/2017 11:38 AM Care Teams Cardiograph Operator Relationship Specialty Start Date End Date Moon Lyon MD [address] [place] [address] PCP - General Family Practice 08/04/15 [place] [address] [facility] [address] [place] [address] Nurse Navigator - Oncology Registered Nurse 12/24/23 [place] [address] [facility] [address] [place] [address] Medical Oncologist Oncology 12/24/23
--- OUTSIDE RECORDS SUMMARY | 2024-02-26 09:49 | XMS_ITS | Encounter Summary ---
Author Organization [place] Address [address] [place] [address]. [place] [address] Care Team Providers Care Statistical Modeler Name Role Phone Molina Warren MD Primary Care Provider [phone] Louise Mustafa RN Unavailable [phone] Radha Clark RN Unavailable [phone] Emely Bauman MD Unavailable + [phone] Emely Bauman MD Unavailable + [phone] Chio Wilson RN Unavailable Unavailable Encounter Details Date Type Department Care Team (Late st Contact Info) Description 05/07/2022 MyC Medical Advice [facility] [address] [place] [address] Emely Bauman MD [address] [place], [place] [id number] Social History Tobacco Use Types Packs/Day Years Used Date Smoking Tobacco: Never Smokeless Tobacco: Never Sex and Gender Information Value Date Recorded Sex Assigned at Female 08/22/2021 11:54 AM LEATHER SPLITTER Gender Identity Female 08/22/2021 11:54 AM LEATHER SPLITTER Sexual Orientation Straight 08/22/2021 11 :54 AM LEATHER SPLITTER documented as of this encounter Plan of Treatment Not on file documented as of this encounter Visit Diagnoses Not on filedocumented in this encounter Care Teams Statistical Modeler Relationship Specialty Start Date End Date Molina Warren MD [facility] [address] [place] [address], [place] [address] PCP - General Hematology & Oncology 09/02/21 Louise Mustafa, LETITIA Specialty Transit Mixer Operator Hematology & Oncology 09/02/21 Radha Clark RN Specialty Transit Mixer Operator Hematology & Oncology 11/30/21 02/19/23 Emely Bauman MD Hematology & Oncology 11/30/21 Emely Bauman MD Assigned Cancer Care Provider 12/31/21 Chio Wilson, LETITIA Specialty Transit Mixer Operator Hematology & Oncology 03/06/23 10/23/23 documented as of this encounter
--- OUTSIDE RECORDS SUMMARY | 2024-02-26 09:49 | XMS_ITS | Encounter Summary ---
Author Organization [place] Address [address] [place] [address]. [place] [address] Care Team Providers Care Dock Operations Supervisor Name Role Phone Molina Warren MD Primary Care Provider [phone] Louise Mustafa RN Unavailable [phone] Molina Warren MD Unavailable [phone] Radha Clark RN Unavailable [phone] Emely Bauman MD Unavailable + [phone] Emely Bauman MD Unavailable + [phone] Chio Wilson RN Unavailable Unavailable Encounter Details Date Type Department Care Team (Late st Contact Info) Description 11/30/2021 MyC Medical Advice [address] [address] Molina Warren MD Physicians [address] [place] [address] Social History Tobacco Use Types Packs/Day Years Used Date Smoking Tobacco: Never Smokeless Tobacco: Never Sex and Gender Information Value Date Recorded Sex Assigned at Female 08/22/2021 11:54 AM RECONNAISSANCE CREWMEMBER Gender Identity Female 08/22/2021 11:54 AM RECONNAISSANCE CREWMEMBER Sexual Orientation Straight 08/22/2021 11 :54 AM RECONNAISSANCE CREWMEMBER documented as of this encounter Plan of Treatment Not on file documented as of this encounter Visit Diagnoses Not on filedocumented in this encounter Care Teams Dock Operations Supervisor Relationship Specialty Start Date End Date Molina Warren MD [facility] [address] [facility] [place] [address] PCP - General Hematology & Oncology 09/02/21 Louise Mustafa, LETITIA Specialty Carpet Repairer Hematology & Oncology 09/02/21 Molina Warren MD M [facility] [address] [place] [address] Assigned Cancer Care Provider 09/18/21 12/30/21 Radha Clark RN Specialty Carpet Repairer Hematology & Oncology 11/30/21 02/19/23 Emely Bauman MD Hematology & Oncology 11/30/21 Emely Bauman MD Assigned Cancer Care Provider 12/31/21 Chio Wilson, RN Specialty Carpet Repairer Hematology & Oncology 03/06/23 10/23/23 documented as of this encounter
--- OUTSIDE RECORDS SUMMARY | 2024-02-26 09:49 | XMS_ITS | Encounter Summary ---
Author Organization [place] Address [address] [place] [address] Care Team Providers Care Research Electrician Name Role Phone Molina Warren MD Primary Care Provider [phone] Louise Mustafa RN Unavailable Molina Warren MD Unavailable [phone] Radha Clark RN Unavailable [phone] Emely Bauman MD Unavailable + [phone] Emely Bauman MD Unavailable + [phone] Chio Wilson RN Unavailable Unavailable Encounter Details Date Type Department Care Team (Late st Contact Info) Description 12/09/2021 [facility] [address] [place] [address] Emely Bauman MD [address], [place] [address] Social History Tobacco Use Types Packs/Day Years Used Date Smoking Tobacco: Never Smokeless Tobacco: Never Sex and Gender Information Value Date Recorded Sex Assigned at Female 08/22/2021 11:54 AM DOUGHNUT MACHINE OPERATOR HELPER Gender Identity Female 08/22/2021 11:54 AM DOUGHNUT MACHINE OPERATOR HELPER Sexual Orientation Straight 08/22/2021 11 :54 AM DOUGHNUT MACHINE OPERATOR HELPER documented as of this encounter Plan of Treatment Not on file documented as of this encounter Visit Diagnoses Not on filedocumented in this encounter Care Teams Research Electrician Relationship Specialty Start Date End Date Molina Warren MD [facility] [address] [place] [address] PCP - General Hematology & Oncology 09/02/21 Louise Mustafa, LETITIA Specialty Armhole Baster Hand Hematology & Oncology 09/02/21 Molina Warren MD [facility] [address] [place] [address] Assigned Cancer Care Provider 09/18/21 12/30/21 Radha Clark RN Specialty Armhole Baster Hand Hematology & Oncology 11/30/21 02/19/23 Emely Bauman MD Hematology & Oncology 11/30/21 Emely Bauman MD Assigned Cancer Care Provider 12/31/21 Chio Wilson, RN Specialty Armhole Baster Hand Hematology & Oncology 03/06/23 10/23/23 documented as of this encounter
--- OUTSIDE RECORDS SUMMARY | 2024-02-26 09:49 | XMS_ITS | Encounter Summary ---
Author Organization [place] Address [address] [place] [address]. [place] [address] Care Team Providers Care Java Engineer Name Role Phone Molina Warren MD Primary Care Provider [phone] Louise Mustafa RN Unavailable [phone] Radha Clark RN Unavailable [phone] Emely Bauman MD Unavailable + [phone] Emley Bauman MD Unavailable + [phone] Chio Wilson RN Unavailable Unavailable Encounter Details Date Type Department Care Team (Late st Contact Info) Description 04/07/2022 MyC Medical Advice [facility] [address] [place] [address] Emely Bauman MD [address] [place], [place] [id number] Social History Tobacco Use Types Packs/Day Years Used Date Smoking Tobacco: Never Smokeless Tobacco: Never Sex and Gender Information Value Date Recorded Sex Assigned at Female 08/22/2021 11:54 AM COORDINATE MEASURING MACHINE PROGRAMMER Gender Identity Female 08/22/2021 11:54 AM COORDINATE MEASURING MACHINE PROGRAMMER Sexual Orientation Straight 08/22/2021 11 :54 AM COORDINATE MEASURING MACHINE PROGRAMMER documented as of this encounter Plan of Treatment Not on file documented as of this encounter Visit Diagnoses Not on filedocumented in this encounter Care Teams Java Engineer Relationship Specialty Start Date End Date Molina Warren MD [facility] [address] [place] [address], [place] [address] PCP - General Hematology & Oncology 09/02/21 Louise Mustafa, LETITIA Specialty Game Trapper Hematology & Oncology 09/02/21 Radha Clark RN Specialty Game Trapper Hematology & Oncology 11/30/21 02/19/23 Emely Bauman MD Hematology & Oncology 11/30/21 Emely Bauman MD Assigned Cancer Care Provider 12/31/21 Chio Wilson, LETITIA Specialty Game Trapper Hematology & Oncology 03/06/23 10/23/23 documented as of this encounter
== END 2024-02-26 09:43 | disposition home or self-care (01) ==
LOC: INJ CL 09:43
PROVIDERS: PCP Family Medicine; Visit Provider Family Medicine
DX: M47.816 Spondylosis without myelopathy or radiculopathy, lumbar region (principal)
CPT/HCPCS: 64493; 64494; 64495; Q9966

== ENCOUNTER 2024-07-15 08:17 | Outpatient (CLI) | payer BC, SELFPAY | END 2024-07-15 08:18 | disposition home or self-care (01) | LOC: INJ CL 08:19 | PROVIDERS: PCP Family Medicine; Visit Provider Family Medicine | DX: M47.816 Spondylosis without myelopathy or radiculopathy, lumbar region (principal) | CPT/HCPCS: 64493; 64494; 64495; J0702; Q9966 ==

== ENCOUNTER 2024-08-05 07:37 | Outpatient (CLI) | payer BC, SELFPAY | END 2024-08-05 07:38 | disposition home or self-care (01) | PROVIDERS: PCP Family Medicine; Visit Provider Family Medicine | DX: M47.816 Spondylosis without myelopathy or radiculopathy, lumbar region (principal) | CPT/HCPCS: 64493; 64494; 64495; J0702; Q9966 ==

== ENCOUNTER 2025-01-06 09:15 | Outpatient (CLI) | payer BC, SELFPAY | END 2025-01-06 09:16 | disposition home or self-care (01) | LOC: INJ CL 09:16 | PROVIDERS: PCP Family Medicine; Visit Provider Family Medicine | DX: M47.816 Spondylosis without myelopathy or radiculopathy, lumbar region (principal) | CPT/HCPCS: 64493; 64494; 64495; J0702; Q9966 ==

== ENCOUNTER 2025-02-17 09:50 | Outpatient (CLI) | payer BC, SELFPAY | END 2025-02-17 09:51 | disposition home or self-care (01) | LOC: INJ CL 09:51 | PROVIDERS: PCP Family Medicine; Visit Provider Family Medicine | DX: M47.816 Spondylosis without myelopathy or radiculopathy, lumbar region (principal) | CPT/HCPCS: 64493; 64494; 64495; J0702; Q9966 ==

== ENCOUNTER 2025-06-12 09:40 | Outpatient (CLI) | payer BC, SELFPAY | END 2025-06-12 09:41 | disposition home or self-care (01) | LOC: INJ CL 09:40 | PROVIDERS: PCP Family Medicine; Visit Provider Family Medicine | DX: M47.816 Spondylosis without myelopathy or radiculopathy, lumbar region (principal) | CPT/HCPCS: 64493; 64494; 64495; Q9966 ==